=== PATIENT | male | born 1940 | race Caucasian/White ===

== ENCOUNTER 2016-08-02 08:45 | Inpatient (IN) | payer MEDICARE, BC ==
[2016-08-04] MEDS ORDERED: Lidocaine 1%/Sod Bicarbonate in NS 8.4% 1 ML Syringe IV PRN (00:01)
[2016-08-04] MEDS ORDERED: Sodium Chloride 0.9% 10 ML Syringe FLUSH PRN (00:01)
[2016-08-04] MEDS ORDERED: Lidocaine 1% 2 ML ONE ×2 (06:54)
[2016-08-04] MEDS ORDERED: Propofol 200 MG/20 ML SDV ONE ×3 (06:54→09:50)
[2016-08-04] MEDS ORDERED: ceFAZolin 1 GM Vial ONE ×3 (06:54→10:58)
[2016-08-04] MEDS ORDERED: Morphine PF 10 MG/10 ML SDV ONE (06:55)
[2016-08-04] MEDS ORDERED: Iodine/Sodium Iodide 2% Tincture 30 ML Bottle ONE (06:58)
[2016-08-04] MEDS ORDERED: Midazolam 1 MG/ML 2 ML SDV ONE (07:00)
--- NOTE | 2016-08-04 07:06 | PCM.PREANE ---
Preanesthetic Assessment - Anesthesia/Transfusion/Family Hx Anesthesia History: Prior Anesthesia Without Reaction Other Type of Anesthesia Reaction Comment: none Family History of Anesthesia Reaction: No Family History of Anesthesia Reaction, Other: none Transfusion History: No Prior Transfusion(s) Other Type of Transfusion Reaction: none Intubation History: Unknown (BS ) - Review of Systems General: No Symptoms Pulmonary: Shortness of Breath (SOB with exertion) Cardiovascular: No Symptoms Gastrointestinal: No symptoms Neurological: No Symptoms Other: Reports: Diabetes - Physical Assessment NPO Status Date: 08/03/16 NPO Status Time: 22:00 Pulse: 80 O2 Sat by Pulse Oximetry: 91 Respiratory Rate: 16 Blood Pressure: 168/83 Temperature: 97.0 C ASA Class: 2 Mental Status: Alert & Oriented x3 Airway Class: Mallampati = 1 Dentition: Reports: Normal Dentition Thyro-Mental Finger Breadths: 3 Mouth Opening Finger Breadths: 3 ROM/Head Extension: Full Lungs: Clear to auscultation, Normal respiratory effort Cardiovascular: Regular Rate, Regular Rhythm - Allergies Allergies/Adverse Reactions: Allergies Allergy/AdvReac Type Severity Reaction Status Date / Time latex Allergy Rash Verified 08/03/16 15:20 - Anesthesia Plan Pre-Op Medication Ordered: None - Acknowledgements Anesthesia Type Planned: Spinal Pt an Appropriate Candidate for the Planned Anesthesia: Yes Alternatives and Risks of Anesthesia Discussed w Pt/Guardian: Yes Pt/Guardian Understands and Agrees with Anesthesia Plan: Yes PreAnesthesia Questionnaire HEENT History: Reports: Impaired vision, Other (see below) Other HEENT History: glasses Cardiovascular History: Reports: High cholesterol, Hypertension Respiratory History: Reports: COPD, SOB (SOB with exertion) Gastrointestinal History: Reports: None Genitourinary History: Reports: Renal calculus, Other (see below) Other Genitourinary History: erectile dysfunction 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 Musculoskeletal History: Reports: None, Arthritis Neurological History: Reports: None Psychiatric History: Reports: None Endocrine/Metabolic History: Reports: Diabetes, type II (pt states he takes no medication for DM, lost 40 pounds last year), Vitamin D deficiency Hematologic History: Reports: None Immunologic History: Reports: None Oncologic (Cancer) History: Reports: None Dermatologic History: Reports: None - Infectious Disease History Infectious Disease History: Reports: None - Past Surgical History Head Surgeries/Procedures: Reports: None HEENT Surgical History: Reports: Cataract surgery, Naso-sinus surgery, Tonsillectomy Cardiovascular Surgical History: Reports: None Respiratory Surgical History: Reports: None GI Surgical History: Reports: Hernia, inguinal, Other (see below) Other GI Surgeries/Procedures: inguinal and abdominal hernia repair Female Surgical History: Reports: None Male Surgical History: Reports: None Endocrine Surgical History: Reports: None Neurological Surgical History: Reports: None Musculoskeletal Surgical History: Reports: None Oncologic Surgical History: Reports: None Dermatological Surgical History: Reports: None (no anesthetic complications) - Past Imaging History Past Imaging History: Reports: None - SUBSTANCE USE Smoking Status *Q: Former Smoker Recreational Drug Use History: No - HOME MEDS Home Medications: Home Meds Aspirin [Halfprin] 81 mg PO DAILY 08/03/16 [History] B2/Vit A,C & E/Lut/Zeaxanth/Mn [Icaps] 1 tab PO BID 08/03/16 [History] Cholecalciferol (Vitamin D3) [Vitamin D3] 5,000 unit PO DAILY 08/03/16 [History] Hydrochlorothiazide 25 mg PO DAILY 08/03/16 [History] Meloxicam [Meloxicam] 15 mg PO DAILY 08/03/16 [History] Ramipril [Ramipril] 10 mg PO BID 08/03/16 [History] atorvaSTATin Calcium [Atorvastatin Calcium] 20 mg PO DAILY 08/03/16 [History] - CURRENT (IN HOUSE) MEDS Current Meds: Current Medications Lactated Ringer's (Ringers, Lactated) 1,000 mls @ 125 mls/hr IV ASDIRECTED NICKY Lidocaine/Sodium Bicarbonate (Buffered Lidocaine 1% In Ns 8.4%) 0.25 ml IV ONETIME PRN PRN Reason: Prior to IV Start Sodium Chloride (Saline Flush) 10 ml FLUSH ASDIRECTED PRN PRN Reason: Keep Vein Open Discontinued Medications Cefazolin Sodium (Ancef) Confirm Administered Dose 1 gm .ROUTE .STK-MED ONE Stop: 08/04/16 06:55 Cefazolin Sodium (Ancef) Confirm Administered Dose 1 gm .ROUTE .STK-MED ONE Stop: 08/04/16 06:55 Lidocaine HCl (Xylocaine-Mpf 1%) Confirm Administered Dose 2 mls @ as directed .ROUTE .STK-MED ONE Stop: 08/04/16 06:55 Lidocaine HCl (Xylocaine-Mpf 1%) Confirm Administered Dose 2 mls @ as directed .ROUTE .STK-MED ONE Stop: 08/04/16 06:55 Midazolam HCl (Versed 1 Mg/Ml) Confirm Administered Dose 2 mg .ROUTE .STK-MED ONE Stop: 08/04/16 07:01 Morphine Sulfate (Duramorph Pf) Confirm Administered Dose 10 mg .ROUTE .STK-MED ONE Stop: 08/04/16 06:56 Propofol (Diprivan 20 Ml) Confirm Administered Dose 200 mg .ROUTE .STK-MED ONE Stop: 08/04/16 06:55
[2016-08-04] MEDS: Lactated Ringers 1,000 ML IV SCH ×2 (07:35→12:42)
[2016-08-04] MEDS ORDERED: Acetaminophen/oxyCODONE 325-5 MG Tab PO PRN (08:07)
[2016-08-04] MEDS ORDERED: Ondansetron 4 MG/2 ML SDV IVPUSH PRN ×2 (08:07→11:46)
[2016-08-04] MEDS ORDERED: HYDROmorphone 0.5 MG/0.5 ML Syringe IVPUSH PRN ×2 (08:07→12:50)
[2016-08-04] MEDS ORDERED: Morphine 15 MG Tab.ER PO SCH (08:15)
[2016-08-04] MEDS ORDERED: Bupivacaine 0.5%/EPINEPHrine 1:200,000 50 ML MDV ONE (08:38)
[2016-08-04] MEDS ORDERED: Lactated Ringers 1,000 ML ONE (09:40)
[2016-08-04] MEDS ORDERED: ePHEDrine/Normal Saline 25 MG/5 ML Syringe ONE ×2 (09:40→10:11)
[2016-08-04] MEDS ORDERED: Ondansetron 4 MG/2 ML SDV ONE (11:24)
--- NOTE | 2016-08-04 11:44 | PCM.POSTAN ---
POST ANESTHESIA ASSESSMENT - MENTAL STATUS Mental Status: alert, oriented - VITAL SIGNS Pulse Rate: 66 SaO2: 91 Resp Rate: 20 Blood Pressure: 97/51 Temperature: 97.7 C - RESPIRATORY Respiratory Status: respiratory rate WNL, airway patent, O2 saturation stable - CARDIOVASCULAR CV Status: pulse rate WNL, blood pressure stable - GASTROINTESTINAL GI Status: no symptoms - PAIN Pain Score: 0 - POST OP HYDRATION Hydration Status: adequate & stable
[2016-08-04] MEDS ORDERED: ePHEDrine 50 MG/ML SDV IVPUSH PRN (11:46)
[2016-08-04] MEDS ORDERED: diphenhydrAMINE 50 MG/ML SDV IVPUSH PRN (11:46)
--- NOTE | 2016-08-04 12:48 | CR ---
Right hip: AP and lateral views of the right hip were obtained. Comparison: Previous right hip study of 06/13/16. Right hip prosthesis is seen. Components are aligned. Surgical drain and skin tom are present with soft tissue air. Underlying bony structures are intact. Impression: 1. Satisfactory radiographic appearance of recently placed right hip prosthesis. Diagnostic code #2
[2016-08-04] MEDS ORDERED: fentaNYL 100 MCG/2 ML SDV IVPUSH PRN (12:50)
--- NOTE | 2016-08-04 13:15 | PCM48HPAN ---
Post Anesthesia Note - EVALUATION WITHIN 48HRS OF ANESTHETIC Vital Signs in Normal Range: Yes Patient Participated in Evaluation: Yes Respiratory Function Stable: Yes Airway Patent: Yes Cardiovascular Function Stable: Yes Hydration Status Stable: Yes Pain Control Satisfactory: Yes Nausea and Vomiting Control Satisfactory: Yes Mental Status Recovered: Yes
[2016-08-04] MEDS: ceFAZolin 1 GM in Premix Bag 1 BAG IV SCH ×2 (14:26→18:19)
[2016-08-04] MEDS ORDERED: 50% Dextrose in Water 50 ML Syringe IVPUSH PRN (15:47)
--- NOTE | 2016-08-04 15:57 | PCM.CONS ---
<AnnemarieJana M - Last Filed: 08/04/16 15:50> H&P History of Present Illness - General Date of Service: 08/04/16 Admit Problem/Dx: Admission Diagnosis/Problem Admission Diagnosis/Problem Hip pain Source of Information: Patient, Old records History Limitations: Reports: No Limitations - History of Present Illness Initial Comments - Free Text/Narative: Kush Payne" is a 75yo male postop from [facility] with Dr. Shaikh today. PMH is significant for HTN, HLD, COPD, Type 2 DM not on any medications currently, ED, hx of nephrolithiasis. Hospitalist service has been consulted for postoperative medical management. He had spinal anesthesia, 350cc EBL intraoperatively, 400cc EBL in PACU in drain. He is doing well thus far, pain is controlled and 6-7/10 on pain scale currently. Has just ambulated with PT at time of my exam. States he is "a little dizzy" but this resolves when he lays down. Denies SOB, CP, BARNARD, palpitations. No abdominal or back pain. Davis cath is in place. He is Full Code status. Right Hip Pain Score (Numeric/FACES): 7 - Related Data Allergies/Adverse Reactions: Allergies Allergy/AdvReac Type Severity Reaction Status Date / Time latex Allergy Rash Verified 08/03/16 15:20 Home Medications: Home Meds Aspirin [Halfprin] 81 mg PO DAILY 08/03/16 [History] B2/Vit A,C & E/Lut/Zeaxanth/Mn [Icaps] 1 tab PO BID 08/03/16 [History] Cholecalciferol (Vitamin D3) [Vitamin D3] 5,000 unit PO DAILY 08/03/16 [History] Hydrochlorothiazide 25 mg PO DAILY 08/03/16 [History] Meloxicam [Meloxicam] 15 mg PO DAILY 08/03/16 [History] Ramipril [Ramipril] 10 mg PO BID 08/03/16 [History] atorvaSTATin Calcium [Atorvastatin Calcium] 20 mg PO DAILY 08/03/16 [History] Past Medical History HEENT History: Reports: Impaired vision, Other (see below) Other HEENT History: Patient wears reading glasses Cardiovascular History: Reports: High cholesterol, Hypertension Respiratory History: Reports: COPD, SOB Gastrointestinal History: Reports: None Genitourinary History: Reports: Renal calculus, Other (see below) Other Genitourinary History: erectile dysfunction 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 Musculoskeletal History: Reports: Arthritis Neurological History: Reports: None Psychiatric History: Reports: None Endocrine/Metabolic History: Reports: Diabetes, type II, Vitamin D deficiency Hematologic History: Reports: None Immunologic History: Reports: None Oncologic (Cancer) History: Reports: None Dermatologic History: Reports: None - Infectious Disease History Infectious Disease History: Reports: None - Past Surgical History Head Surgeries/Procedures: Reports: None HEENT Surgical History: Reports: Cataract surgery, Naso-sinus surgery, Tonsillectomy Cardiovascular Surgical History: Reports: None Respiratory Surgical History: Reports: None GI Surgical History: Reports: Hernia, inguinal, Other (see below) Other GI Surgeries/Procedures: inguinal and abdominal hernia repair Male Surgical History: Reports: None Endocrine Surgical History: Reports: None Neurological Surgical History: Reports: None Musculoskeletal Surgical History: Reports: None Oncologic Surgical History: Reports: None Dermatological Surgical History: Reports: None - Past Imaging History Past Imaging History: Reports: None Social & Family History - Family History Family Medical History: Noncontributory - Tobacco Use Smoking Status *Q: Former Smoker Years of Tobacco use: 40 Used Tobacco, but Quit: Yes Month Tobacco Last Used: 2003 - Caffeine Use Caffeine Use: Reports: Coffee - Recreational Drug Use Recreational Drug Use: No Drug Use in Last 12 Months: No H&P Review of Systems - Review of Systems: Review Of Systems: See Below General: Reports: No Symptoms HEENT: Reports: No Symptoms Pulmonary: Reports: No Symptoms, Other (on supplemental O2 now, not on O2 at home, denies MAXIMILIANO but does state he snores loudly). Denies: Shortness of Breath , Wheezing, Pleuritic Chest Pain, Cough, Hemoptysis Cardiovascular: Reports: No Symptoms, Lightheadedness (resolved after lying flat ). Denies: Chest Pain, Palpitations, Dyspnea on Exertion, Orthopnea Gastrointestinal: Reports: No Symptoms Genitourinary: Reports: Other (davis cath present) Musculoskeletal: Reports: Leg Pain (rt hip pain) Psychiatric: Reports: No Symptoms Neurological: Reports: No Symptoms Exam - Exam Exam: See Below - Vital Signs Vital Signs: Last Vital Signs Temp 97.9 F 08/04/16 13:17 Pulse 64 08/04/16 14:07 Resp 18 08/04/16 15:00 BP 146/56 H 08/04/16 15:32 Pulse Ox 94 L 08/04/16 14:07 Weight: 89.267 kg - Exam Quality Assessment: Supplemental Oxygen, DVT Prophylaxis (SCD's bilat) General: Alert, Oriented, Cooperative HEENT: Conjunctiva Clear, EOMI, Hearing Intact, Mucosa Moist & [place], Pupils Equal, Pupils Reactive, PERRLA Neck: Supple, Trachea Midline Lungs: Clear to Auscultation, Normal Respiratory Effort, Wheezing (expiratory wheeze, scattered and clears with cough) Cardiovascular: Regular Rate, Regular Rhythm Abdomen: Normal Bowel Sounds, Soft. No: Distention, Guarding, Rigidity, Rebound , Tenderness (Male) Exam: Deferred Rectal (Males) Exam: Deferred Back Exam: Normal Inspection Extremities: Normal Inspection, Other (SCD's) Peripheral Pulses: 1+: Dorsalis Pedis (L), Dorsalis Pedis (R) Skin: Wound (dressing CDI; drain in place draining excess amt of blood) Neuro Extensive - Mental Status: Alert, Oriented x3, Normal Mood/Affect, Normal Cognition, Memory Intact Psychiatric: Alert, Normal Affect, Normal Mood - Patient Data Lab Results last 24 hrs: Laboratory Results - last 24 hr 08/04/16 08/04/16 Range/Units 07:39 08:00 POC Glucose 103 (83-110) mg/dL Blood Type O NEGATIVE Gel Antibody Screen Negative Consult PN Assessment/Plan POD#: 0 Procedures: Procedures BLOOD TYPING SEROLOGIC ABO (07/13/16) BLOOD TYPING SEROLOGIC RH(D) (07/13/16) CHEST X-RAY 2VW FRONTAL&LATL (07/13/16) MR-STAPH DNA AMP PROBE (07/13/16) OFFICE/OUTPATIENT VISIT EST (07/13/16) RBC ANTIBODY SCREEN (07/13/16) ROUTINE VENIPUNCTURE (07/13/16) X-RAY EXAM HIP UNI 2-3 VIEWS (06/13/16) (1) S/P total hip arthroplasty SNOMED Code(s): 134785606768, 901817080890 Code(s): Z96.649 - PRESENCE OF UNSPECIFIED ARTIFICIAL HIP JOINT Priority: High Current Visit: Yes Qualifiers: Laterality: right Qualified Code(s): Z96.641 - Presence of right artificial hip joint (2) Osteoarthritis SNOMED Code(s): 661801958 Code(s): M19.90 - UNSPECIFIED OSTEOARTHRITIS, UNSPECIFIED SITE Priority: High Current Visit: Yes Qualifiers: Osteoarthritis location: hip Osteoarthritis type: primary Laterality: right Qualified Code(s): M16.11 - Unilateral primary osteoarthritis, right hip (3) HTN (hypertension) SNOMED Code(s): 03245315 Code(s): I10 - ESSENTIAL (PRIMARY) HYPERTENSION Priority: Medium Current Visit: No Qualifiers: Hypertension type: essential hypertension Qualified Code(s): I10 - Essential (primary) hypertension (4) HLD (hyperlipidemia) SNOMED Code(s): 28098686 Code(s): E78.5 - HYPERLIPIDEMIA, UNSPECIFIED Priority: Medium Current Visit: No Qualifiers: Hyperlipidemia type: unspecified Qualified Code(s): E78.5 - Hyperlipidemia , unspecified (5) COPD (chronic obstructive pulmonary disease) SNOMED Code(s): 30871089 Code(s): J44.9 - CHRONIC OBSTRUCTIVE PULMONARY DISEASE, UNSPECIFIED Priority: Medium Current Visit: No Qualifiers: Emphysema type: unspecified (6) Type 2 diabetes mellitus SNOMED Code(s): 04816459 Code(s): E11.9 - TYPE 2 DIABETES MELLITUS WITHOUT COMPLICATIONS Priority: High Current Visit: Yes Qualifiers: Diabetes mellitus complication status: without complication 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 Qualified Code(s): E11.9 - Type 2 diabetes mellitus without complications (7) History of nephrolithiasis SNOMED Code(s): 403954564 Code(s): Z87.442 - PERSONAL HISTORY OF URINARY CALCULI Priority: Medium Current Visit: No Problem List Initiated/Reviewed/Updated: Yes My Orders last 24 hours: My Active Orders 08/04/16 15:21 ABG [BLOOD GAS ARTERIAL] [BG] Routine 08/04/16 15:43 IS (RT) [RT Incentive Spirometry] [RC] Q2HWA Albuterol [Proventil Neb Soln] 2.5 mg NEB Q6HRRT PRN 08/04/16 15:44 RT Aerosol Therapy [RC] ASDIRECTED 08/04/16 15:47 Accu Check [Blood Glucose Check, Bedside] [RC] WITHMEALSANDBED Dextrose 50% in Water 50 ml IVPUSH ASDIRECTED PRN 08/04/16 17:00 Insulin Aspart [NovoLOG] See Protocol SUBCUT QIDACANDBED 08/04/16 21:00 B2/Vit A,C & E/Lut/Zeaxanth/Mn [Icaps] 1 tab PO BID Famotidine [Pepcid] 20 mg PO BID Ramipril 10 mg PO BID 08/04/16 Dinner Heart Healthy Diet [DIET] 08/05/16 05:11 BASIC METABOLIC PANEL,BMP [CHEM] AM CBC WITH AUTO DIFF [HEME] AM MAGNESIUM [CHEM] AM 08/05/16 09:00 Aspirin [Halfprin] 81 mg PO DAILY Cholecalciferol (Vitamin D3) [Vitamin D3] 5,000 unit PO DAILY Hydrochlorothiazide 25 mg PO DAILY atorvaSTATin Calcium 20 mg PO DAILY 08/06/16 05:11 BASIC METABOLIC PANEL,BMP [CHEM] AM CBC WITH AUTO DIFF [HEME] AM MAGNESIUM [CHEM] AM 08/07/16 05:11 BASIC METABOLIC PANEL,BMP [CHEM] AM CBC WITH AUTO DIFF [HEME] AM MAGNESIUM [CHEM] AM 08/08/16 05:11 BASIC METABOLIC PANEL,BMP [CHEM] AM CBC WITH AUTO DIFF [HEME] AM MAGNESIUM [CHEM] AM Plan: I/P S/P [facility] with Dr. Shaikh: POD #0 -Pain managment and DVT prophylax per Ortho -PT/OT -IS/C&DB/RT/nebs PRN -patient is home alone with no assistance; plans SNF/Rehab stay Postoperative blood loss -EBL intraoperative 350cc; PACU 400cc; since arrival to the floor 300cc -Plan to transfuse 1 unit PRBC now, recheck hgb in am and follow -Notified Dr. Shaikh of plan- he is in agreement to transfusion today with recheck of hgb in am Other chronic conditions: HTN- cont home meds of HCTZ, lisinopril HLD- cont statin COPD- stable, on no home meds, supplemental oxygen to keep sats >90%, albuterol nebs PRN and RT tx DM- not on any home meds; A1C will be ordered, Accuchecks AC/HS with SSI coverage ED Hx nephrolithiasis Other: CM/SW for DC planning- plans SNF stay for rehab PT/OT GI prophylax Patient is Full Code status <Madison Elliott - Last Filed: 08/04/16 17:47> H&P History of Present Illness - General Admit Problem/Dx: Admission Diagnosis/Problem Admission Diagnosis/Problem Hip pain Exam - Vital Signs Vital Signs: Last Vital Signs Temp 37.3 C 08/04/16 16:00 Pulse 73 08/04/16 16:00 Resp 20 08/04/16 17:00 BP 142/50 H 08/04/16 17:00 Pulse Ox 97 08/04/16 17:23 - Patient Data Lab Results last 24 hrs: Laboratory Results - last 24 hr 08/04/16 08/04/16 08/04/16 Range/Units 07:39 08:00 15:21 Hgb (13.7-17.5) gm/L Puncture Site Rt radial ABG pH 7.33 L (7.35-7.45) ABG pCO2 59.9 H (35.0-45.0) mmHg ABG pO2 70.0 L (80.0-100.0) mmHg ABG HCO3 30.6 H (22.0-26.0) meq/L ABG O2 Saturation 94.2 L (96.0-97.0) % ABG Base Excess 3.8 H (-2-2.0) Darren Test Positive A-a Gradient 34 mmHg O2 Delivery Device Nasal cannula Oxygen Flow Rate 2.0 FiO2 28.00 (21.00-100.00) % POC Glucose 103 (83-110) mg/dL Blood Type O NEGATIVE Gel Antibody Screen Negative Crossmatch See Detail 08/04/16 Range/Units 16:31 Hgb 11.8 L (13.7-17.5) gm/L Puncture Site ABG pH (7.35-7.45) ABG pCO2 (35.0-45.0) mmHg ABG pO2 (80.0-100.0) mmHg ABG HCO3 (22.0-26.0) meq/L ABG O2 Saturation (96.0-97.0) % ABG Base Excess (-2-2.0) Darren Test A-a Gradient mmHg O2 Delivery Device Oxygen Flow Rate FiO2 (21.00-100.00) % POC Glucose (83-110) mg/dL Blood Type Gel Antibody Screen Crossmatch Result Diagrams: 08/04/16 16:31 Consult PN Assessment/Plan Procedures: Procedures BLOOD TYPING SEROLOGIC ABO (07/13/16) BLOOD TYPING SEROLOGIC RH(D) (07/13/16) CHEST X-RAY 2VW FRONTAL&LATL (07/13/16) MR-STAPH DNA AMP PROBE (07/13/16) OFFICE/OUTPATIENT VISIT EST (07/13/16) RBC ANTIBODY SCREEN (07/13/16) ROUTINE VENIPUNCTURE (07/13/16) X-RAY EXAM HIP UNI 2-3 VIEWS (06/13/16) Plan: See above, will follow.
[2016-08-04] MEDS: Albuterol 0.083% 2.5 MG/3 ML Neb Soln NEB PRN (17:21)
[2016-08-04] MEDS: Insulin Aspart 100 Units/ML 3 ML Pen SUBCUT SCH ×2 (18:25→21:38)
[2016-08-04] MEDS: Ketorolac 15 MG/ML SDV IVPUSH PRN (21:37)
[2016-08-04] MEDS: Famotidine 20 MG Tab PO SCH (21:37)
[2016-08-04] MEDS: Cyclobenzaprine 10 MG Tab PO PRN (21:37)
[2016-08-04] MEDS: Multivitamins with Minerals/Folic Acid/Lutein/Zeaxanth Tab PO SCH (21:38)
[2016-08-04] MEDS: Simvastatin 20 MG Tab PO SCH (21:38)
[2016-08-05] MEDS: ceFAZolin 1 GM in Premix Bag 1 BAG IV SCH ×2 (01:52→06:26)
[2016-08-05] MEDS: Ketorolac 15 MG/ML SDV IVPUSH PRN (06:26)
[2016-08-05] MEDS: Cyclobenzaprine 10 MG Tab PO PRN (06:27)
[2016-08-05] MEDS: Insulin Aspart 100 Units/ML 3 ML Pen SUBCUT SCH ×4 (06:51→21:30)
--- NOTE | 2016-08-05 07:30 | PCM.CONSN ---
<Madison Elliott Karlos - Last Filed: 08/05/16 10:42> - Patient Data Vitals - most recent: Last Vital Signs Temp 37.3 C 08/05/16 07:23 Pulse 66 08/05/16 07:23 Resp 18 08/05/16 07:20 BP 115/57 L 08/05/16 09:00 Pulse Ox 95 08/05/16 10:10 I&O - last 24 hours: Intake & Output 08/04/16 08/05/16 08/05/16 22:59 06:59 14:59 Intake Total 1640 650 Output Total 450 850 Balance 1190 -200 Lab Results last 24 hrs: Laboratory Results - last 24 hr 08/04/16 08/04/16 08/04/16 Range/Units 08:00 15:21 16:31 WBC (4.23-9.07) K/mm3 RBC (4.63-6.08) M/mm3 Hgb 11.8 L (13.7-17.5) gm/L Hct (40.1-51.0) % MCV (79.0-92.2) fl MCH (25.7-32.2) pg MCHC (32.2-35.5) g/dl RDW Std Deviation (35.1-43.9) fL Plt Count (163-337) K/mm3 MPV (9.4-12.3) fl Neut % (Auto) (34.0-67.9) % Lymph % (Auto) (21.8-53.1) % Harper % (Auto) (5.3-12.2) % Eos % (Auto) (0.8-7.0) Baso % (Auto) (0.1-1.2) % Neut # (Auto) (1.78-5.38) K/mm3 Lymph # (Auto) (1.32-3.57) K/mm3 Harper # (Auto) (0.30-0.82) K/mm3 Eos # (Auto) (0.04-0.54) K/mm3 Baso # (Auto) (0.01-0.08) K/mm3 Puncture Site Rt radial ABG pH 7.33 L (7.35-7.45) ABG pCO2 59.9 H (35.0-45.0) mmHg ABG pO2 70.0 L (80.0-100.0) mmHg ABG HCO3 30.6 H (22.0-26.0) meq/L ABG O2 Saturation 94.2 L (96.0-97.0) % ABG Base Excess 3.8 H (-2-2.0) Darren Test Positive A-a Gradient 34 mmHg O2 Delivery Device Nasal cannula Oxygen Flow Rate 2.0 FiO2 28.00 (21.00-100.00) % Sodium (136-145) mEq/L Potassium (3.5-5.1) mEq/L Chloride (98-107) mEq/L Carbon Dioxide (21-32) mEq/L Anion Gap (5-15) BUN (7-18) mg/dL Creatinine (0.7-1.3) mg/dL Est Cr Clr Drug Dosing mL/min Estimated GFR (MDRD) (>60) mL/min BUN/Creatinine Ratio (14-18) Glucose (83-115) mg/dL POC Glucose (83-110) mg/dL Hemoglobin A1c (4.50-6.20) % Calcium (8.5-10.1) mg/dL Magnesium (1.8-2.4) mg/dl Hepatitis C Antibody (NEGATIVE) HIV-1 Ab Rapid Screen (NEGATIVE) Blood Type O NEGATIVE Gel Antibody Screen Negative Crossmatch See Detail 08/04/16 08/04/16 08/04/16 Range/Units 17:54 21:13 21:22 WBC (4.23-9.07) K/mm3 RBC (4.63-6.08) M/mm3 Hgb (13.7-17.5) gm/L Hct (40.1-51.0) % MCV (79.0-92.2) fl MCH (25.7-32.2) pg MCHC (32.2-35.5) g/dl RDW Std Deviation (35.1-43.9) fL Plt Count (163-337) K/mm3 MPV (9.4-12.3) fl Neut % (Auto) (34.0-67.9) % Lymph % (Auto) (21.8-53.1) % Harper % (Auto) (5.3-12.2) % Eos % (Auto) (0.8-7.0) Baso % (Auto) (0.1-1.2) % Neut # (Auto) (1.78-5.38) K/mm3 Lymph # (Auto) (1.32-3.57) K/mm3 Harper # (Auto) (0.30-0.82) K/mm3 Eos # (Auto) (0.04-0.54) K/mm3 Baso # (Auto) (0.01-0.08) K/mm3 Puncture Site ABG pH (7.35-7.45) ABG pCO2 (35.0-45.0) mmHg ABG pO2 (80.0-100.0) mmHg ABG HCO3 (22.0-26.0) meq/L ABG O2 Saturation (96.0-97.0) % ABG Base Excess (-2-2.0) Darren Test A-a Gradient mmHg O2 Delivery Device Oxygen Flow Rate FiO2 (21.00-100.00) % Sodium (136-145) mEq/L Potassium (3.5-5.1) mEq/L Chloride (98-107) mEq/L Carbon Dioxide (21-32) mEq/L Anion Gap (5-15) BUN (7-18) mg/dL Creatinine (0.7-1.3) mg/dL Est Cr Clr Drug Dosing mL/min Estimated GFR (MDRD) (>60) mL/min BUN/Creatinine Ratio (14-18) Glucose (83-115) mg/dL POC Glucose 111 H 99 (83-110) mg/dL Hemoglobin A1c (4.50-6.20) % Calcium (8.5-10.1) mg/dL Magnesium (1.8-2.4) mg/dl Hepatitis C Antibody Negative (NEGATIVE) HIV-1 Ab Rapid Screen Negative (NEGATIVE) Blood Type Gel Antibody Screen Crossmatch 08/05/16 08/05/16 08/05/16 Range/Units 04:14 04:14 04:14 WBC 10.53 H (4.23-9.07) K/mm3 RBC 3.66 L (4.63-6.08) M/mm3 Hgb 10.9 L (13.7-17.5) gm/L Hct 33.8 L (40.1-51.0) % MCV 92.3 H (79.0-92.2) fl MCH 29.8 (25.7-32.2) pg MCHC 32.2 (32.2-35.5) g/dl RDW Std Deviation 44.3 H (35.1-43.9) fL Plt Count 182 (163-337) K/mm3 MPV 10.2 (9.4-12.3) fl Neut % (Auto) 71.9 H (34.0-67.9) % Lymph % (Auto) 12.2 L (21.8-53.1) % Harper % (Auto) 12.8 H (5.3-12.2) % Eos % (Auto) 2.5 (0.8-7.0) Baso % (Auto) 0.4 (0.1-1.2) % Neut # (Auto) 7.58 H (1.78-5.38) K/mm3 Lymph # (Auto) 1.28 L (1.32-3.57) K/mm3 Harper # (Auto) 1.35 H (0.30-0.82) K/mm3 Eos # (Auto) 0.26 (0.04-0.54) K/mm3 Baso # (Auto) 0.04 (0.01-0.08) K/mm3 Puncture Site ABG pH (7.35-7.45) ABG pCO2 (35.0-45.0) mmHg ABG pO2 (80.0-100.0) mmHg ABG HCO3 (22.0-26.0) meq/L ABG O2 Saturation (96.0-97.0) % ABG Base Excess (-2-2.0) Darren Test A-a Gradient mmHg O2 Delivery Device Oxygen Flow Rate FiO2 (21.00-100.00) % Sodium 134 L (136-145) mEq/L Potassium 4.4 (3.5-5.1) mEq/L Chloride 101 (98-107) mEq/L Carbon Dioxide 33 H (21-32) mEq/L Anion Gap 4.4 L (5-15) BUN 20 H (7-18) mg/dL Creatinine 0.7 (0.7-1.3) mg/dL Est Cr Clr Drug Dosing 87.87 mL/min Estimated GFR (MDRD) > 60 (>60) mL/min BUN/Creatinine Ratio 28.6 H (14-18) Glucose 112 (83-115) mg/dL POC Glucose (83-110) mg/dL Hemoglobin A1c 5.80 (4.50-6.20) % Calcium 8.3 L (8.5-10.1) mg/dL Magnesium 1.7 L (1.8-2.4) mg/dl Hepatitis C Antibody (NEGATIVE) HIV-1 Ab Rapid Screen (NEGATIVE) Blood Type Gel Antibody Screen Crossmatch 08/05/16 Range/Units 06:48 WBC (4.23-9.07) K/mm3 RBC (4.63-6.08) M/mm3 Hgb (13.7-17.5) gm/L Hct (40.1-51.0) % MCV (79.0-92.2) fl MCH (25.7-32.2) pg MCHC (32.2-35.5) g/dl RDW Std Deviation (35.1-43.9) fL Plt Count (163-337) K/mm3 MPV (9.4-12.3) fl Neut % (Auto) (34.0-67.9) % Lymph % (Auto) (21.8-53.1) % Harper % (Auto) (5.3-12.2) % Eos % (Auto) (0.8-7.0) Baso % (Auto) (0.1-1.2) % Neut # (Auto) (1.78-5.38) K/mm3 Lymph # (Auto) (1.32-3.57) K/mm3 Harper # (Auto) (0.30-0.82) K/mm3 Eos # (Auto) (0.04-0.54) K/mm3 Baso # (Auto) (0.01-0.08) K/mm3 Puncture Site ABG pH (7.35-7.45) ABG pCO2 (35.0-45.0) mmHg ABG pO2 (80.0-100.0) mmHg ABG HCO3 (22.0-26.0) meq/L ABG O2 Saturation (96.0-97.0) % ABG Base Excess (-2-2.0) Darren Test A-a Gradient mmHg O2 Delivery Device Oxygen Flow Rate FiO2 (21.00-100.00) % Sodium (136-145) mEq/L Potassium (3.5-5.1) mEq/L Chloride (98-107) mEq/L Carbon Dioxide (21-32) mEq/L Anion Gap (5-15) BUN (7-18) mg/dL Creatinine (0.7-1.3) mg/dL Est Cr Clr Drug Dosing mL/min Estimated GFR (MDRD) (>60) mL/min BUN/Creatinine Ratio (14-18) Glucose (83-115) mg/dL POC Glucose 112 H (83-110) mg/dL Hemoglobin A1c (4.50-6.20) % Calcium (8.5-10.1) mg/dL Magnesium (1.8-2.4) mg/dl Hepatitis C Antibody (NEGATIVE) HIV-1 Ab Rapid Screen (NEGATIVE) Blood Type Gel Antibody Screen Crossmatch Med Orders - Current: Current Medications Albuterol (Proventil Neb Soln) 2.5 mg NEB Q6H PRN PRN Reason: SOB/wheezing Last Admin: 08/04/16 17:21 Dose: 2.5 mg Aspirin (Halfprin) 81 mg PO DAILY [facility] Last Admin: 08/05/16 08:59 Dose: 81 mg Cholecalciferol (Vitamin D3) 5,000 units PO DAILY [facility] Last Admin: 08/05/16 09:00 Dose: 5,000 units Cyclobenzaprine HCl (Flexeril) 10 - 20 mg PO Q8H PRN PRN Reason: Muscle Spasm Last Admin: 08/05/16 06:27 Dose: 10 mg Dextrose/Water (Dextrose 50% In Water) 50 ml IVPUSH ASDIRECTED PRN PRN Reason: Hypoglycemia Enoxaparin Sodium (Lovenox) 40 mg SUBCUT DAILY [facility] Last Admin: 08/05/16 09:01 Dose: 40 mg Famotidine (Pepcid) 20 mg PO BID [facility] Last Admin: 08/05/16 08:59 Dose: 20 mg Hydrochlorothiazide (Hydrochlorothiazide) 25 mg PO DAILY [facility] Last Admin: 08/05/16 08:59 Dose: 25 mg Insulin Aspart (Novolog) 0 unit SUBCUT QIDACANDBED [facility] PRN Reason: Protocol Last Admin: 08/05/16 06:51 Dose: Not Given Ketorolac Tromethamine (Toradol) 15 mg IVPUSH Q6H PRN PRN Reason: Pain (severe 7-10) Last Admin: 08/05/16 06:26 Dose: 15 mg Lisinopril (Prinivil) 40 mg PO DAILY [facility] Last Admin: 08/05/16 09:00 Dose: 40 mg Oxycodone/Acetaminophen (Percocet 325-5 Mg) 1 - 2 tab PO Q4H PRN PRN Reason: Pain (severe 7-10) Last Admin: 08/05/16 10:09 Dose: 2 tab Simvastatin (Zocor) 20 mg PO BEDTIME [facility] Last Admin: 08/04/16 21:38 Dose: 20 mg Vit A/Vit C/Vit E/Selen/Cu/Zn/Lutei (Icaps Mv) 1 tab PO BID [facility] Last Admin: 08/05/16 09:00 Dose: 1 tab Discontinued Medications Bupivacaine HCl/Epinephrine Bitart (Marcaine 0.5%/Epinephrine 1:200,000) Confirm Administered Dose 50 ml .ROUTE .STK-MED ONE Stop: 08/04/16 08:39 Last Admin: 08/04/16 09:28 Dose: 20 ml Cefazolin Sodium (Ancef) Confirm Administered Dose 1 gm .ROUTE .STK-MED ONE Stop: 08/04/16 06:55 Cefazolin Sodium (Ancef) Confirm Administered Dose 1 gm .ROUTE .STK-MED ONE Stop: 08/04/16 06:55 Cefazolin Sodium (Ancef) Confirm Administered Dose 1 gm .ROUTE .STK-MED ONE Stop: 08/04/16 10:59 Diphenhydramine HCl (Benadryl) 25 mg IVPUSH Q6H PRN PRN Reason: pruritis Stop: 08/04/16 20:00 Ephedrine Sulfate (Ephedrine In Ns) Confirm Administered Dose 25 mg .ROUTE .STK- MED ONE Stop: 08/04/16 09:41 Ephedrine Sulfate (Ephedrine In Ns) Confirm Administered Dose 25 mg .ROUTE .STK- MED ONE Stop: 08/04/16 10:12 Ephedrine Sulfate (Ephedrine Sulfate) 5 mg IVPUSH ASDIRECTED PRN PRN Reason: Hypotension Stop: 08/04/16 20:00 Fentanyl (Sublimaze) 50 mcg IVPUSH Q5M PRN PRN Reason: Pain Stop: 08/04/16 13:06 Hydromorphone HCl (Dilaudid) 0.5 mg IVPUSH Q2H PRN PRN Reason: Pain (severe 7-10) Stop: 08/04/16 18:00 Hydromorphone HCl (Dilaudid) 0.5 mg IVPUSH Q15M PRN PRN Reason: severe pain Stop: 08/04/16 13:06 Lactated Ringer's (Ringers, Lactated) 1,000 mls @ 125 mls/hr IV ASDIRECTED [facility] Last Admin: 08/04/16 12:42 Dose: 125 mls/hr Lidocaine HCl (Xylocaine-Mpf 1%) Confirm Administered Dose 2 mls @ as directed .ROUTE .STK-MED ONE Stop: 08/04/16 06:55 Lidocaine HCl (Xylocaine-Mpf 1%) Confirm Administered Dose 2 mls @ as directed .ROUTE .STK-MED ONE Stop: 08/04/16 06:55 Cefazolin Sodium/Dextrose 1 gm (/ Premix) 50 mls @ 200 mls/hr IV Q6H [facility] Stop: 08/05/16 07:14 Last Admin: 08/05/16 06:26 Dose: 200 mls/hr Lactated Ringer's (Ringers, Lactated) Confirm Administered Dose 1,000 mls @ as directed .ROUTE .STK-MED ONE Stop: 08/04/16 09:41 Magnesium Sulfate 2 gm/ Premix 50 mls @ 25 mls/hr IV ONETIME ONE Stop: 08/05/16 10:29 Last Admin: 08/05/16 09:01 Dose: 25 mls/hr Iodine (Iodine 2% Mild Tincture) Confirm Administered Dose 30 ml .ROUTE .STK- MED ONE Stop: 08/04/16 06:59 Last Admin: 08/04/16 09:28 Dose: 8 ml Lidocaine/Sodium Bicarbonate (Buffered Lidocaine 1% In Ns 8.4%) 0.25 ml IV ONETIME PRN PRN Reason: Prior to IV Start Stop: 08/04/16 18:00 Last Admin: 08/04/16 07:35 Dose: 0.25 ml Midazolam HCl (Versed 1 Mg/Ml) Confirm Administered Dose 2 mg .ROUTE .STK-MED ONE Stop: 08/04/16 07:01 Morphine Sulfate (Duramorph Pf) Confirm Administered Dose 10 mg .ROUTE .STK-MED ONE Stop: 08/04/16 06:56 Morphine Sulfate (Ms Contin) 15 mg PO ONETIME NICKY Stop: 08/04/16 18:00 Ondansetron HCl (Zofran) 4 mg IVPUSH Q4H PRN PRN Reason: Nausea/Vomiting Stop: 08/04/16 18:00 Ondansetron HCl (Zofran) Confirm Administered Dose 4 mg .ROUTE .STK-MED ONE Stop: 08/04/16 11:25 Ondansetron HCl (Zofran) 4 mg IVPUSH ONETIME PRN PRN Reason: Nausea/Vomiting Stop: 08/04/16 18:00 Oxycodone/Acetaminophen (Percocet 325-5 Mg) 1 - 2 tab PO Q4H PRN PRN Reason: Pain (severe 7-10) Stop: 08/04/16 16:00 Propofol (Diprivan 20 Ml) Confirm Administered Dose 200 mg .ROUTE .STK-MED ONE Stop: 08/04/16 06:55 Propofol (Diprivan 20 Ml) Confirm Administered Dose 200 mg .ROUTE .STK-MED ONE Stop: 08/04/16 09:09 Propofol (Diprivan 20 Ml) Confirm Administered Dose 200 mg .ROUTE .STK-MED ONE Stop: 08/04/16 09:51 Sodium Chloride (Saline Flush) 10 ml FLUSH ASDIRECTED PRN PRN Reason: Keep Vein Open Stop: 08/04/16 18:00 Consult PN Assessment/Plan Procedures: Procedures BLOOD TYPING SEROLOGIC ABO (07/13/16) BLOOD TYPING SEROLOGIC RH(D) (07/13/16) CHEST X-RAY 2VW FRONTAL&LATL (07/13/16) MR-STAPH DNA AMP PROBE (07/13/16) OFFICE/OUTPATIENT VISIT EST (07/13/16) RBC ANTIBODY SCREEN (07/13/16) ROUTINE VENIPUNCTURE (07/13/16) X-RAY EXAM HIP UNI 2-3 VIEWS (06/13/16) Plan: Agree with above, dc plan in progress. <Jana Sharpe M - Last Filed: 08/05/16 13:02> - General Info Date of Service: 08/05/16 Admission Dx/Problem (Free Text): Admission Diagnosis/Problem Admission Diagnosis/Problem Hip pain Patient is POD #1, Rt KRISTIN with Dr. Shaikh Slept well, pain is controlled. He is on 2L/NC overnight- other VSS. Hgb this am is 10.9 Functional Status: Reports: pain controlled, tolerating diet, ambulating, urinating. Denies: new symptoms - Review of Systems General: Denies: Fever HEENT: Reports: no symptoms Pulmonary: Reports: no symptoms, other (on supplemental O2). Denies: shortness of breath, cough Cardiovascular: Reports: No Symptoms. Denies: Chest Pain, Palpitations, Dyspnea on Exertion, Lightheadedness Gastrointestinal: Reports: No symptoms Genitourinary: Reports: no symptoms Musculoskeletal: Reports: leg pain (rt hip) Neurological: Reports: No Symptoms Psychiatric: Reports: no symptoms - Patient Data Vitals - most recent: Last Vital Signs Temp 98.4 F 08/05/16 04:22 Pulse 66 08/05/16 04:22 Resp 16 08/05/16 06:55 BP 112/74 08/05/16 04:22 Pulse Ox 94 L 08/05/16 04:22 Weight - most recent: 204 lb 3.2 oz I&O - last 24 hours: Intake & Output 08/04/16 08/05/16 08/05/16 22:59 06:59 14:59 Intake Total 1640 650 Output Total 450 850 Balance 1190 -200 Lab Results last 24 hrs: Laboratory Results - last 24 hr 08/04/16 08/04/16 08/04/16 Range/Units 07:39 08:00 15:21 WBC (4.23-9.07) K/mm3 RBC (4.63-6.08) M/mm3 Hgb (13.7-17.5) gm/L Hct (40.1-51.0) % MCV (79.0-92.2) fl MCH (25.7-32.2) pg MCHC (32.2-35.5) g/dl RDW Std Deviation (35.1-43.9) fL Plt Count (163-337) K/mm3 MPV (9.4-12.3) fl Neut % (Auto) (34.0-67.9) % Lymph % (Auto) (21.8-53.1) % Harper % (Auto) (5.3-12.2) % Eos % (Auto) (0.8-7.0) Baso % (Auto) (0.1-1.2) % Neut # (Auto) (1.78-5.38) K/mm3 Lymph # (Auto) (1.32-3.57) K/mm3 Harper # (Auto) (0.30-0.82) K/mm3 Eos # (Auto) (0.04-0.54) K/mm3 Baso # (Auto) (0.01-0.08) K/mm3 Puncture Site Rt radial ABG pH 7.33 L (7.35-7.45) ABG pCO2 59.9 H (35.0-45.0) mmHg ABG pO2 70.0 L (80.0-100.0) mmHg ABG HCO3 30.6 H (22.0-26.0) meq/L ABG O2 Saturation 94.2 L (96.0-97.0) % ABG Base Excess 3.8 H (-2-2.0) Darren Test Positive A-a Gradient 34 mmHg O2 Delivery Device Nasal cannula Oxygen Flow Rate 2.0 FiO2 28.00 (21.00-100.00) % Sodium (136-145) mEq/L Potassium (3.5-5.1) mEq/L Chloride (98-107) mEq/L Carbon Dioxide (21-32) mEq/L Anion Gap (5-15) BUN (7-18) mg/dL Creatinine (0.7-1.3) mg/dL Est Cr Clr Drug Dosing mL/min Estimated GFR (MDRD) (>60) mL/min BUN/Creatinine Ratio (14-18) Glucose (83-115) mg/dL POC Glucose 103 (83-110) mg/dL Hemoglobin A1c (4.50-6.20) % Calcium (8.5-10.1) mg/dL Magnesium (1.8-2.4) mg/dl Hepatitis C Antibody (NEGATIVE) HIV-1 Ab Rapid Screen (NEGATIVE) Blood Type O NEGATIVE Gel Antibody Screen Negative Crossmatch See Detail 08/04/16 08/04/16 08/04/16 Range/Units 16:31 17:54 21:13 WBC (4.23-9.07) K/mm3 RBC (4.63-6.08) M/mm3 Hgb 11.8 L (13.7-17.5) gm/L Hct (40.1-51.0) % MCV (79.0-92.2) fl MCH (25.7-32.2) pg MCHC (32.2-35.5) g/dl RDW Std Deviation (35.1-43.9) fL Plt Count (163-337) K/mm3 MPV (9.4-12.3) fl Neut % (Auto) (34.0-67.9) % Lymph % (Auto) (21.8-53.1) % Harper % (Auto) (5.3-12.2) % Eos % (Auto) (0.8-7.0) Baso % (Auto) (0.1-1.2) % Neut # (Auto) (1.78-5.38) K/mm3 Lymph # (Auto) (1.32-3.57) K/mm3 Harper # (Auto) (0.30-0.82) K/mm3 Eos # (Auto) (0.04-0.54) K/mm3 Baso # (Auto) (0.01-0.08) K/mm3 Puncture Site ABG pH (7.35-7.45) ABG pCO2 (35.0-45.0) mmHg ABG pO2 (80.0-100.0) mmHg ABG HCO3 (22.0-26.0) meq/L ABG O2 Saturation (96.0-97.0) % ABG Base Excess (-2-2.0) Darren Test A-a Gradient mmHg O2 Delivery Device Oxygen Flow Rate FiO2 (21.00-100.00) % Sodium (136-145) mEq/L Potassium (3.5-5.1) mEq/L Chloride (98-107) mEq/L Carbon Dioxide (21-32) mEq/L Anion Gap (5-15) BUN (7-18) mg/dL Creatinine (0.7-1.3) mg/dL Est Cr Clr Drug Dosing mL/min Estimated GFR (MDRD) (>60) mL/min BUN/Creatinine Ratio (14-18) Glucose (83-115) mg/dL POC Glucose 111 H 99 (83-110) mg/dL Hemoglobin A1c (4.50-6.20) % Calcium (8.5-10.1) mg/dL Magnesium (1.8-2.4) mg/dl Hepatitis C Antibody (NEGATIVE) HIV-1 Ab Rapid Screen (NEGATIVE) Blood Type Gel Antibody Screen Crossmatch 08/04/16 08/05/16 08/05/16 Range/Units 21:22 04:14 04:14 WBC 10.53 H (4.23-9.07) K/mm3 RBC 3.66 L (4.63-6.08) M/mm3 Hgb 10.9 L (13.7-17.5) gm/L Hct 33.8 L (40.1-51.0) % MCV 92.3 H (79.0-92.2) fl MCH 29.8 (25.7-32.2) pg MCHC 32.2 (32.2-35.5) g/dl RDW Std Deviation 44.3 H (35.1-43.9) fL Plt Count 182 (163-337) K/mm3 MPV 10.2 (9.4-12.3) fl Neut % (Auto) 71.9 H (34.0-67.9) % Lymph % (Auto) 12.2 L (21.8-53.1) % Harper % (Auto) 12.8 H (5.3-12.2) % Eos % (Auto) 2.5 (0.8-7.0) Baso % (Auto) 0.4 (0.1-1.2) % Neut # (Auto) 7.58 H (1.78-5.38) K/mm3 Lymph # (Auto) 1.28 L (1.32-3.57) K/mm3 Harper # (Auto) 1.35 H (0.30-0.82) K/mm3 Eos # (Auto) 0.26 (0.04-0.54) K/mm3 Baso # (Auto) 0.04 (0.01-0.08) K/mm3 Puncture Site ABG pH (7.35-7.45) ABG pCO2 (35.0-45.0) mmHg ABG pO2 (80.0-100.0) mmHg ABG HCO3 (22.0-26.0) meq/L ABG O2 Saturation (96.0-97.0) % ABG Base Excess (-2-2.0) Darren Test A-a Gradient mmHg O2 Delivery Device Oxygen Flow Rate FiO2 (21.00-100.00) % Sodium 134 L (136-145) mEq/L Potassium 4.4 (3.5-5.1) mEq/L Chloride 101 (98-107) mEq/L Carbon Dioxide 33 H (21-32) mEq/L Anion Gap 4.4 L (5-15) BUN 20 H (7-18) mg/dL Creatinine 0.7 (0.7-1.3) mg/dL Est Cr Clr Drug Dosing 87.87 mL/min Estimated GFR (MDRD) > 60 (>60) mL/min BUN/Creatinine Ratio 28.6 H (14-18) Glucose 112 (83-115) mg/dL POC Glucose (83-110) mg/dL Hemoglobin A1c (4.50-6.20) % Calcium 8.3 L (8.5-10.1) mg/dL Magnesium 1.7 L (1.8-2.4) mg/dl Hepatitis C Antibody Negative (NEGATIVE) HIV-1 Ab Rapid Screen Negative (NEGATIVE) Blood Type Gel Antibody Screen Crossmatch 08/05/16 08/05/16 Range/Units 04:14 06:48 WBC (4.23-9.07) K/mm3 RBC (4.63-6.08) M/mm3 Hgb (13.7-17.5) gm/L Hct (40.1-51.0) % MCV (79.0-92.2) fl MCH (25.7-32.2) pg MCHC (32.2-35.5) g/dl RDW Std Deviation (35.1-43.9) fL Plt Count (163-337) K/mm3 MPV (9.4-12.3) fl Neut % (Auto) (34.0-67.9) % Lymph % (Auto) (21.8-53.1) % Harper % (Auto) (5.3-12.2) % Eos % (Auto) (0.8-7.0) Baso % (Auto) (0.1-1.2) % Neut # (Auto) (1.78-5.38) K/mm3 Lymph # (Auto) (1.32-3.57) K/mm3 Harper # (Auto) (0.30-0.82) K/mm3 Eos # (Auto) (0.04-0.54) K/mm3 Baso # (Auto) (0.01-0.08) K/mm3 Puncture Site ABG pH (7.35-7.45) ABG pCO2 (35.0-45.0) mmHg ABG pO2 (80.0-100.0) mmHg ABG HCO3 (22.0-26.0) meq/L ABG O2 Saturation (96.0-97.0) % ABG Base Excess (-2-2.0) Darren Test A-a Gradient mmHg O2 Delivery Device Oxygen Flow Rate FiO2 (21.00-100.00) % Sodium (136-145) mEq/L Potassium (3.5-5.1) mEq/L Chloride (98-107) mEq/L Carbon Dioxide (21-32) mEq/L Anion Gap (5-15) BUN (7-18) mg/dL Creatinine (0.7-1.3) mg/dL Est Cr Clr Drug Dosing mL/min Estimated GFR (MDRD) (>60) mL/min BUN/Creatinine Ratio (14-18) Glucose (83-115) mg/dL POC Glucose 112 H (83-110) mg/dL Hemoglobin A1c 5.80 (4.50-6.20) % Calcium (8.5-10.1) mg/dL Magnesium (1.8-2.4) mg/dl Hepatitis C Antibody (NEGATIVE) HIV-1 Ab Rapid Screen (NEGATIVE) Blood Type Gel Antibody Screen Crossmatch Med Orders - Current: Current Medications Albuterol (Proventil Neb Soln) 2.5 mg NEB Q6H PRN PRN Reason: SOB/wheezing Last Admin: 08/04/16 17:21 Dose: 2.5 mg Aspirin (Halfprin) 81 mg PO DAILY [facility] Cholecalciferol (Vitamin D3) 5,000 units PO DAILY [facility] Cyclobenzaprine HCl (Flexeril) 10 - 20 mg PO Q8H PRN PRN Reason: Muscle Spasm Last Admin: 08/05/16 06:27 Dose: 10 mg Dextrose/Water (Dextrose 50% In Water) 50 ml IVPUSH ASDIRECTED PRN PRN Reason: Hypoglycemia Enoxaparin Sodium (Lovenox) 40 mg SUBCUT DAILY [facility] Famotidine (Pepcid) 20 mg PO BID [facility] Last Admin: 08/04/16 21:37 Dose: 20 mg Hydrochlorothiazide (Hydrochlorothiazide) 25 mg PO DAILY [facility] Magnesium Sulfate 2 gm/ Premix 50 mls @ 25 mls/hr IV ONETIME ONE Stop: 08/05/16 09:21 Insulin Aspart (Novolog) 0 unit SUBCUT QIDACANDBED [facility] PRN Reason: Protocol Last Admin: 08/05/16 06:51 Dose: Not Given Ketorolac Tromethamine (Toradol) 15 mg IVPUSH Q6H PRN PRN Reason: Pain (severe 7-10) Last Admin: 08/05/16 06:26 Dose: 15 mg Lisinopril (Prinivil) 40 mg PO DAILY [facility] Simvastatin (Zocor) 20 mg PO BEDTIME [facility] Last Admin: 08/04/16 21:38 Dose: 20 mg Vit A/Vit C/Vit E/Selen/Cu/Zn/Lutei (Icaps Mv) 1 tab PO BID [facility] Last Admin: 08/04/16 21:38 Dose: 1 tab Discontinued Medications Bupivacaine HCl/Epinephrine Bitart (Marcaine 0.5%/Epinephrine 1:200,000) Confirm Administered Dose 50 ml .ROUTE .STK-MED ONE Stop: 08/04/16 08:39 Last Admin: 08/04/16 09:28 Dose: 20 ml Cefazolin Sodium (Ancef) Confirm Administered Dose 1 gm .ROUTE .STK-MED ONE Stop: 08/04/16 06:55 Cefazolin Sodium (Ancef) Confirm Administered Dose 1 gm .ROUTE .STK-MED ONE Stop: 08/04/16 06:55 Cefazolin Sodium (Ancef) Confirm Administered Dose 1 gm .ROUTE .STK-MED ONE Stop: 08/04/16 10:59 Diphenhydramine HCl (Benadryl) 25 mg IVPUSH Q6H PRN PRN Reason: pruritis Stop: 08/04/16 20:00 Ephedrine Sulfate (Ephedrine In Ns) Confirm Administered Dose 25 mg .ROUTE .STK- MED ONE Stop: 08/04/16 09:41 Ephedrine Sulfate (Ephedrine In Ns) Confirm Administered Dose 25 mg .ROUTE .STK- MED ONE Stop: 08/04/16 10:12 Ephedrine Sulfate (Ephedrine Sulfate) 5 mg IVPUSH ASDIRECTED PRN PRN Reason: Hypotension Stop: 08/04/16 20:00 Fentanyl (Sublimaze) 50 mcg IVPUSH Q5M PRN PRN Reason: Pain Stop: 08/04/16 13:06 Hydromorphone HCl (Dilaudid) 0.5 mg IVPUSH Q2H PRN PRN Reason: Pain (severe 7-10) Stop: 08/04/16 18:00 Hydromorphone HCl (Dilaudid) 0.5 mg IVPUSH Q15M PRN PRN Reason: severe pain Stop: 08/04/16 13:06 Lactated Ringer's (Ringers, Lactated) 1,000 mls @ 125 mls/hr IV ASDIRECTED NICKY Last Admin: 08/04/16 12:42 Dose: 125 mls/hr Lidocaine HCl (Xylocaine-Mpf 1%) Confirm Administered Dose 2 mls @ as directed .ROUTE .STK-MED ONE Stop: 08/04/16 06:55 Lidocaine HCl (Xylocaine-Mpf 1%) Confirm Administered Dose 2 mls @ as directed .ROUTE .STK-MED ONE Stop: 08/04/16 06:55 Cefazolin Sodium/Dextrose 1 gm (/ Premix) 50 mls @ 200 mls/hr IV Q6H [facility] Stop: 08/05/16 07:14 Last Admin: 08/05/16 06:26 Dose: 200 mls/hr Lactated Ringer's (Ringers, Lactated) Confirm Administered Dose 1,000 mls @ as directed .ROUTE .STK-MED ONE Stop: 08/04/16 09:41 Iodine (Iodine 2% Mild Tincture) Confirm Administered Dose 30 ml .ROUTE .STK- MED ONE Stop: 08/04/16 06:59 Last Admin: 08/04/16 09:28 Dose: 8 ml Lidocaine/Sodium Bicarbonate (Buffered Lidocaine 1% In Ns 8.4%) 0.25 ml IV ONETIME PRN PRN Reason: Prior to IV Start Stop: 08/04/16 18:00 Last Admin: 08/04/16 07:35 Dose: 0.25 ml Midazolam HCl (Versed 1 Mg/Ml) Confirm Administered Dose 2 mg .ROUTE .STK-MED ONE Stop: 08/04/16 07:01 Morphine Sulfate (Duramorph Pf) Confirm Administered Dose 10 mg .ROUTE .STK-MED ONE Stop: 08/04/16 06:56 Morphine Sulfate (Ms Contin) 15 mg PO ONETIME [facility] Stop: 08/04/16 18:00 Ondansetron HCl (Zofran) 4 mg IVPUSH Q4H PRN PRN Reason: Nausea/Vomiting Stop: 08/04/16 18:00 Ondansetron HCl (Zofran) Confirm Administered Dose 4 mg .ROUTE .STK-MED ONE Stop: 08/04/16 11:25 Ondansetron HCl (Zofran) 4 mg IVPUSH ONETIME PRN PRN Reason: Nausea/Vomiting Stop: 08/04/16 18:00 Oxycodone/Acetaminophen (Percocet 325-5 Mg) 1 - 2 tab PO Q4H PRN PRN Reason: Pain (severe 7-10) Stop: 08/04/16 16:00 Propofol (Diprivan 20 Ml) Confirm Administered Dose 200 mg .ROUTE .STK-MED ONE Stop: 08/04/16 06:55 Propofol (Diprivan 20 Ml) Confirm Administered Dose 200 mg .ROUTE .STK-MED ONE Stop: 08/04/16 09:09 Propofol (Diprivan 20 Ml) Confirm Administered Dose 200 mg .ROUTE .STK-MED ONE Stop: 08/04/16 09:51 Sodium Chloride (Saline Flush) 10 ml FLUSH ASDIRECTED PRN PRN Reason: Keep Vein Open Stop: 08/04/16 18:00 - Exam Quality Assessment: supplemental oxygen, DVT prophylaxis General: alert, oriented, cooperative, no acute distress HEENT: Pupils equal, Pupils reactive, EOMI, Mucous membr. moist/pink Neck: supple Lungs: Clear to auscultation, Normal respiratory effort, Decreased breath sounds (to bases), Wheezing (intermittent scatterd expiratory) Cardiovascular: Regular Rate, Regular Rhythm Abdomen: bowel sounds present, soft, no tenderness, no distension (Male) Exam: Deferred Extremities: no edema, no calf tenderness, other (teds bilat;scd's bilat) Peripheral Pulses: 1+: Dorsalis Pedis (L), Dorsalis Pedis (R) Wound/Incisions: dressing dry and intact, other (drain present) Neurological: no new focal deficit Psy/Mental Status: alert, normal affect, normal mood Consult PN Assessment/Plan POD#: 1 Procedures: Procedures BLOOD TYPING SEROLOGIC ABO (07/13/16) BLOOD TYPING SEROLOGIC RH(D) (07/13/16) CHEST X-RAY 2VW FRONTAL&LATL (07/13/16) MR-STAPH DNA AMP PROBE (07/13/16) OFFICE/OUTPATIENT VISIT EST (07/13/16) RBC ANTIBODY SCREEN (07/13/16) ROUTINE VENIPUNCTURE (07/13/16) X-RAY EXAM HIP UNI 2-3 VIEWS (06/13/16) (1) S/P total hip arthroplasty SNOMED Code(s): 213477219575, 384646738324 Code(s): Z96.649 - PRESENCE OF UNSPECIFIED ARTIFICIAL HIP JOINT Priority: High Current Visit: Yes Qualifiers: Laterality: right Qualified Code(s): Z96.641 - Presence of right artificial hip joint (2) Osteoarthritis SNOMED Code(s): 177206622 Code(s): M19.90 - UNSPECIFIED OSTEOARTHRITIS, UNSPECIFIED SITE Priority: High Current Visit: Yes Qualifiers: Osteoarthritis location: hip Osteoarthritis type: primary Laterality: right Qualified Code(s): M16.11 - Unilateral primary osteoarthritis, right hip (3) HTN (hypertension) SNOMED Code(s): 09254806 Code(s): I10 - ESSENTIAL (PRIMARY) HYPERTENSION Priority: Medium Current Visit: No Qualifiers: Hypertension type: essential hypertension Qualified Code(s): I10 - Essential (primary) hypertension (4) HLD (hyperlipidemia) SNOMED Code(s): 85100944 Code(s): E78.5 - HYPERLIPIDEMIA, UNSPECIFIED Priority: Medium Current Visit: No Qualifiers: Hyperlipidemia type: unspecified Qualified Code(s): E78.5 - Hyperlipidemia , unspecified (5) COPD (chronic obstructive pulmonary disease) SNOMED Code(s): 31593140 Code(s): J44.9 - CHRONIC OBSTRUCTIVE PULMONARY DISEASE, UNSPECIFIED Priority: Medium Current Visit: No Qualifiers: Emphysema type: unspecified (6) Type 2 diabetes mellitus SNOMED Code(s): 22583353 Code(s): E11.9 - TYPE 2 DIABETES MELLITUS WITHOUT COMPLICATIONS Priority: High Current Visit: Yes Qualifiers: Diabetes mellitus complication status: without complication Diabetes mellitus watermaster insulin use: without watermaster use Qualified Code(s): E11.9 - Type 2 diabetes mellitus without complications (7) History of nephrolithiasis SNOMED Code(s): 855483826 Code(s): Z87.442 - PERSONAL HISTORY OF URINARY CALCULI Priority: Medium Current Visit: No (8) Postoperative anemia due to acute blood loss SNOMED Code(s): 11111386749426014 Code(s): D62 - ACUTE POSTHEMORRHAGIC ANEMIA Priority: High Current Visit : Yes Problem List Initiated/Reviewed/Updated: Yes My Orders last 24 hours: My Active Orders 08/04/16 08:00 RED BLOOD CELLS LP [BBK] Routine 08/04/16 15:43 IS (RT) [RT Incentive Spirometry] [RC] Q2HWA Albuterol [Proventil Neb Soln] 2.5 mg NEB Q6H PRN 08/04/16 15:44 RT Aerosol Therapy [RC] ASDIRECTED 08/04/16 15:47 Accu Check [Blood Glucose Check, Bedside] [RC] WITHMEALSANDBED Dextrose 50% in Water 50 ml IVPUSH ASDIRECTED PRN 08/04/16 16:16 Transfuse Red Blood Cells [COMM] Routine 08/04/16 17:00 Insulin Aspart [NovoLOG] See Protocol SUBCUT QIDACANDBED 08/04/16 21:00 Famotidine [Pepcid] 20 mg PO BID Multivitamins/Min/FA/Lut/Zeax [ICaps MV] 1 tab PO BID Simvastatin [Zocor] 20 mg PO BEDTIME 08/04/16 Dinner Heart Healthy Diet [DIET] 08/05/16 07:22 Magnesium Sulfate/Water [Magnesium Sulfate 2 GM in Water 50 ML] 2 gm Premix Bag 1 bag IV ONETIME 08/05/16 09:00 Aspirin [Halfprin] 81 mg PO DAILY Cholecalciferol (Vitamin D3) [Vitamin D3] 5,000 units PO DAILY Hydrochlorothiazide 25 mg PO DAILY Lisinopril [Prinivil] 40 mg PO DAILY 08/06/16 05:11 BASIC METABOLIC PANEL,BMP [CHEM] AM CBC WITH AUTO DIFF [HEME] AM MAGNESIUM [CHEM] AM 08/07/16 05:11 BASIC METABOLIC PANEL,BMP [CHEM] AM CBC WITH AUTO DIFF [HEME] AM MAGNESIUM [CHEM] AM 08/08/16 05:11 BASIC METABOLIC PANEL,BMP [CHEM] AM CBC WITH AUTO DIFF [HEME] AM MAGNESIUM [CHEM] AM Plan: I/P S/P Rt KRISTIN with Dr. Shaikh: POD #1 -Pain managment and DVT prophylax per Ortho -PT/OT -IS/C&DB/RT/nebs PRN -patient is home alone with no assistance; plans SNF/Rehab stay Postoperative blood loss -EBL intraoperative 350cc; PACU 400cc; since arrival to the floor 300cc -S/P 1unit PRBC with hgb of 10.8 this am, hemodynamically stable -cont to follow am hgb Other chronic conditions: HTN- cont home meds of HCTZ, lisinopril HLD- cont statin COPD- stable, on no home meds, supplemental oxygen to keep sats >90%, albuterol nebs PRN and RT tx DM- not on any home meds; A1C will be ordered, Accuchecks AC/HS with SSI coverage ED Hx nephrolithiasis Other: CM/SW for DC planning- plans SNF stay for rehab PT/OT GI prophylax Patient is Full Code status
--- NOTE | 2016-08-05 08:09 | OR ---
DATE OF OPERATION: 08/04/2016 SURGEON: Fadi Shaikh MD PREOPERATIVE DIAGNOSIS: Severe osteoarthritis right hip with intractable pain. POSTOPERATIVE DIAGNOSIS: Severe osteoarthritis right hip with intractable pain. ANESTHESIA: Spinal with light sedation. OPERATION PERFORMED: 1. Right total hip replacement. 2. Percutaneous adductor tenotomy, right hip. ESTIMATED BLOOD LOSS: 350 mL. DESCRIPTION OF PROCEDURE: The patient was taken to the operating room in supine position, placed on a spinal anesthetic. After spinal anesthesia had anesthetized the right lower extremity, the patient was then transferred to the left lateral decubitus position. In the left lateral decubitus position, the right hip was then prepped and draped for a standard anterolateral approach for a right hip total hip replacement surgery. Once prepping and draping was completed, the operation then proceeded with an oblique incision being placed across the greater trochanter approximately 1 inch distal to its tip, about 30 degree angulation, and was approximately 4-5 cm in length. Penetration through the skin and the subcutaneous tissues. These were dissected off the fascia chanell. The fascia chanell was incised in line with the axis of the femur thus exposing the gluteus medius. The gluteus medius was then split in the anterior corner and opened up to visualize the gluteus minimus. Using electrocautery, the gluteus minimus was then incised down the capsule paralleling its fibers and then an L-type release was then carried out to the greater trochanter and then the anterior portion of the gluteus medius and minimus was then reflected away from the anterior portion of the greater trochanter. Once that was completed, the deeper tissues were released gaining a very good exposure of the hip capsule. Capsulectomy was then performed. The hip was then dislocated and the femoral neck was then cut. The operation proceeded with standard reaming of the acetabulum after debriding. It was noted the patient had a fairly large spur coming off the anterior inferior portion of the acetabular region and later in the course of surgery this was found to impinge on the femoral neck. This was removed with an osteotome. The operation proceeded after standard reaming, the 58 size cup was then impacted into the acetabulum with 45 degrees abduction approximately 20 degrees anteversion. Once in place, the operation then proceeded with final inspection of the cup to make sure was solid, a trial insert was then placed into the cup and then the operation proceeded to the femoral side where the femur was then placed in the side bag again exposure to the distal tip. Once that was exposed, the standard approach was to open up the femoral neck down into the femoral canal with a Charnley reamer. Once that was completed, it was then reamed to approximately 14 size reamer for insertion of the prosthesis. Once the opening of the canal was in place, the standard trial femoral broaches were then placed into the canal. It was fitted to a regular size rather than an MMA type and going with the 14 or 15 size stem, this was left in place. The trial femoral neck was applied. Once that was in place with a neutral setting, the hip was then reduced. The hip was then stressed through full abduction and adduction, was found to have some decreased coverage slightly anteriorly. The pistoning effect of the hip with the current prosthesis in there, the trial was absolutely nil, but no pistoning was noted. The operation then proceeded with removal of the trial femoral prosthesis on the femoral neck and head and also the acetabular cup. The permanent acetabular cup was then inserted with a 10-degree angulation of the cup remaining slightly superior. Once that was in place, the operation then proceeded with insertion of the femoral stem. This was impacted into the femur and with solid fixation with no loosening noted. The operation then proceeded with application of the femoral head and then the hip was then reduced into place. Once reduced, it went through another trial of motion. It may be noted that during the course of the trial range of motion, putting a finger over the acetabular area inferior found the osteophyte impinging on the femoral neck, but once that was removed with the permanent prosthesis in place, there was no impingement noted on palpation. The hip was very stable. There was no pistoning on direct examination. The operation then proceeded with irrigation. Irrigation was carried out through the whole wound all through the procedure using the iodine solution. Once the irrigation of the deep tissues was completed, the operation proceeded with drill holes to the greater trochanter. #5 FiberWire was used to reattach the gluteus minimus and medius to the greater trochanter anteriorly. The interval was closed with #1 Vicryl. The operation proceeded with closure of the fascia chanell with #1 Vicryl, the subcutaneous tissues with #1 Vicryl and #2 Vicryl, and skin with skin tom. Once the wound was closed, the operation then proceeded with the placement of the patient in the supine position. In testing of the hip pre-surgery, the adductors were very tight, and post surgery, the adductors are still very tight, less than 10 degrees motion, which would definitely cause some significant problems for bathroom type activity. It was opted then to perform a percutaneous adductor release. The groin area was prepped by standard technique and then the adductor tendon was identified. Using a #11 blade, the skin was pierced. The level of the adductor tendon was released as the hip was placed into more abduction, could easily go to 30 degrees abduction with the release being carried out. Standard dressings were applied along with a sandbag to the right groin. The patient tolerated the whole procedure well. He left the operating room in stable condition with standard dressings and Hemovac. WILMAR /[id number]
[2016-08-05] MEDS ORDERED: Magnesium Sulfate/Water 2 GM in Premix Bag 1 BAG IV ONE (08:30)
[2016-08-05] MEDS: Famotidine 20 MG Tab PO SCH ×2 (08:59→21:30)
[2016-08-05] MEDS: Hydrochlorothiazide 25 MG Tab PO SCH (08:59)
[2016-08-05] MEDS: Aspirin 81 MG Tab.EC PO SCH (08:59)
[2016-08-05] MEDS: Multivitamins with Minerals/Folic Acid/Lutein/Zeaxanth Tab PO SCH ×2 (09:00→21:30)
[2016-08-05] MEDS: Lisinopril 20 MG Tab PO SCH (09:00)
[2016-08-05] MEDS: Cholecalciferol (Vitamin D3) 1,000 Unit Tab PO SCH (09:00)
[2016-08-05] MEDS: Enoxaparin 40 MG/0.4 ML Syringe SUBCUT SCH (09:01)
[2016-08-05] MEDS: Acetaminophen/oxyCODONE 325-5 MG Tab PO PRN ×2 (10:09→21:57)
[2016-08-05] MEDS: Sodium Chloride 0.9% 250 ML IV SCH ×2 (14:17→15:14)
[2016-08-05] MEDS: Albuterol 0.083% 2.5 MG/3 ML Neb Soln NEB PRN (14:44)
[2016-08-05] MEDS ORDERED: predniSONE 20 MG Tab PO ONE (15:00)
[2016-08-05] MEDS ORDERED: diphenhydrAMINE 50 MG/ML SDV IVPUSH ONE (15:00)
[2016-08-05] MEDS ORDERED: Sodium Chloride 0.9% 250 ML IV ONE (15:30)
[2016-08-05] MEDS ORDERED: Sodium Chloride 0.9% 1,000 ML IV SCH (15:45)
[2016-08-05] MEDS: Simvastatin 20 MG Tab PO SCH (21:57)
[2016-08-06] MEDS: Insulin Aspart 100 Units/ML 3 ML Pen SUBCUT SCH ×2 (06:38→11:20)
[2016-08-06] MEDS: Multivitamins with Minerals/Folic Acid/Lutein/Zeaxanth Tab PO SCH ×2 (07:59→19:59)
[2016-08-06] MEDS: Cholecalciferol (Vitamin D3) 1,000 Unit Tab PO SCH (07:59)
[2016-08-06] MEDS: Acetaminophen/oxyCODONE 325-5 MG Tab PO PRN ×3 (07:59→16:09)
[2016-08-06] MEDS: Hydrochlorothiazide 25 MG Tab PO SCH (08:00)
[2016-08-06] MEDS: Famotidine 20 MG Tab PO SCH ×2 (08:00→20:00)
[2016-08-06] MEDS: Aspirin 81 MG Tab.EC PO SCH (08:00)
[2016-08-06] MEDS: Enoxaparin 40 MG/0.4 ML Syringe SUBCUT SCH (08:00)
[2016-08-06] MEDS: Lisinopril 20 MG Tab PO SCH (08:00)
[2016-08-06] MEDS: Cyclobenzaprine 10 MG Tab PO PRN ×2 (08:00→16:10)
[2016-08-06] MEDS ORDERED: Lactulose Soln 10 GM/15 ML 30 ML UD Cup PO ONE (13:43)
--- NOTE | 2016-08-06 13:52 | PCM.CONSN ---
- General Info Date of Service: 08/06/16 Functional Status: Reports: pain controlled, tolerating diet, urinating - Review of Systems General: Reports: No Symptoms HEENT: Reports: no symptoms Pulmonary: Reports: no symptoms Cardiovascular: Reports: No Symptoms Gastrointestinal: Reports: No symptoms Genitourinary: Reports: no symptoms Musculoskeletal: Reports: no symptoms Skin: Reports: no symptoms Neurological: Reports: No Symptoms Psychiatric: Reports: no symptoms - Patient Data Vitals - most recent: Last Vital Signs Temp 36.9 C 08/06/16 11:59 Pulse 65 08/06/16 11:59 Resp 12 08/06/16 11:59 BP 114/54 L 08/06/16 11:59 Pulse Ox 98 08/06/16 11:59 Weight - most recent: 91.081 kg I&O - last 24 hours: Intake & Output 08/05/16 08/06/16 08/06/16 22:59 06:59 14:59 Intake Total 925 450 Output Total 925 1600 Balance 0 -1150 Lab Results last 24 hrs: Laboratory Results - last 24 hr 08/04/16 08/05/16 08/05/16 Range/Units 08:00 15:47 18:28 WBC (4.23-9.07) K/mm3 RBC (4.63-6.08) M/mm3 Hgb (13.7-17.5) gm/L Hct (40.1-51.0) % MCV (79.0-92.2) fl MCH (25.7-32.2) pg MCHC (32.2-35.5) g/dl RDW Std Deviation (35.1-43.9) fL Plt Count (163-337) K/mm3 MPV (9.4-12.3) fl Neut % (Auto) (34.0-67.9) % Lymph % (Auto) (21.8-53.1) % [place] % (Auto) (5.3-12.2) % Eos % (Auto) (0.8-7.0) Baso % (Auto) (0.1-1.2) % Neut # (Auto) (1.78-5.38) K/mm3 Lymph # (Auto) (1.32-3.57) K/mm3 [place] # (Auto) (0.30-0.82) K/mm3 Eos # (Auto) (0.04-0.54) K/mm3 Baso # (Auto) (0.01-0.08) K/mm3 Manual Slide Review Sodium (136-145) mEq/L Potassium (3.5-5.1) mEq/L Chloride (98-107) mEq/L Carbon Dioxide (21-32) mEq/L Anion Gap (5-15) BUN (7-18) mg/dL Creatinine (0.7-1.3) mg/dL Est Cr Clr Drug Dosing mL/min Estimated GFR (MDRD) (>60) mL/min BUN/Creatinine Ratio (14-18) Glucose (83-115) mg/dL POC Glucose 114 H (83-110) mg/dL Calcium (8.5-10.1) mg/dL Magnesium (1.8-2.4) mg/dl Blood Type O NEGATIVE Gel Antibody Screen Negative Crossmatch See Detail Tx Rx Implicated Unit 1 [id number] Unit 1 Component Prbc Tx React Review Date 08/05/2016 Reaction Clerical Check Acceptable Pre-Trans Vis Hemolysis Negative Pre-Trans Icterus Negative Post-Trans Blood Type O negative Post-Tx Visible Hemolys Negative Post-Trans Icterus Negative Post-Trans TANK IgG Negative Reaction Pathol Review Delonte camacho md 08/06/16 08/06/16 08/06/16 Range/Units 04:30 04:30 11:17 WBC 12.56 H (4.23-9.07) K/mm3 RBC 3.39 L (4.63-6.08) M/mm3 Hgb 10.2 L (13.7-17.5) gm/L Hct 31.1 L (40.1-51.0) % MCV 91.7 (79.0-92.2) fl MCH 30.1 (25.7-32.2) pg MCHC 32.8 (32.2-35.5) g/dl RDW Std Deviation 42.9 (35.1-43.9) fL Plt Count 182 (163-337) K/mm3 MPV 10.6 (9.4-12.3) fl Neut % (Auto) 77.4 H (34.0-67.9) % Lymph % (Auto) 8.5 L (21.8-53.1) % [place] % (Auto) 13.3 H (5.3-12.2) % Eos % (Auto) 0.5 L (0.8-7.0) Baso % (Auto) 0.2 (0.1-1.2) % Neut # (Auto) 9.73 H (1.78-5.38) K/mm3 Lymph # (Auto) 1.07 L (1.32-3.57) K/mm3 [place] # (Auto) 1.67 H (0.30-0.82) K/mm3 Eos # (Auto) 0.06 (0.04-0.54) K/mm3 Baso # (Auto) 0.02 (0.01-0.08) K/mm3 Manual Slide Review Abnormal smear Sodium 139 (136-145) mEq/L Potassium 4.1 (3.5-5.1) mEq/L Chloride 103 (98-107) mEq/L Carbon Dioxide 31 (21-32) mEq/L Anion Gap 9.1 (5-15) BUN 18 (7-18) mg/dL Creatinine 0.7 (0.7-1.3) mg/dL Est Cr Clr Drug Dosing 87.87 mL/min Estimated GFR (MDRD) > 60 (>60) mL/min BUN/Creatinine Ratio 25.7 H (14-18) Glucose 113 (83-115) mg/dL POC Glucose 95 (83-110) mg/dL Calcium 8.4 L (8.5-10.1) mg/dL Magnesium 2.1 (1.8-2.4) mg/dl Blood Type Gel Antibody Screen Crossmatch Tx Rx Implicated Unit 1 Unit 1 Component Tx React Review Date Reaction Clerical Check Pre-Trans Vis Hemolysis Pre-Trans Icterus Post-Trans Blood Type Post-Tx Visible Hemolys Post-Trans Icterus Post-Trans TANK IgG Reaction Pathol Review Med Orders - Current: Current Medications Albuterol (Proventil Neb Soln) 2.5 mg NEB Q6H PRN PRN Reason: SOB/wheezing Last Admin: 08/05/16 14:44 Dose: 2.5 mg Aspirin (Halfprin) 81 mg PO DAILY NICKY Last Admin: 08/06/16 08:00 Dose: 81 mg Cholecalciferol (Vitamin D3) 5,000 units PO DAILY NICKY Last Admin: 08/06/16 07:59 Dose: 5,000 units Cyclobenzaprine HCl (Flexeril) 10 - 20 mg PO Q8H PRN PRN Reason: Muscle Spasm Last Admin: 08/06/16 08:00 Dose: 10 mg Dextrose/Water (Dextrose 50% In Water) 50 ml IVPUSH ASDIRECTED PRN PRN Reason: Hypoglycemia Enoxaparin Sodium (Lovenox) 40 mg SUBCUT DAILY [facility] Last Admin: 08/06/16 08:00 Dose: 40 mg Famotidine (Pepcid) 20 mg PO BID [facility] Last Admin: 08/06/16 08:00 Dose: 20 mg Hydrochlorothiazide (Hydrochlorothiazide) 25 mg PO DAILY [facility] Last Admin: 08/06/16 08:00 Dose: 25 mg Ketorolac Tromethamine (Toradol) 15 mg IVPUSH Q6H PRN PRN Reason: Pain (severe 7-10) Last Admin: 08/05/16 06:26 Dose: 15 mg Lisinopril (Prinivil) 40 mg PO DAILY [facility] Last Admin: 08/06/16 08:00 Dose: 40 mg Oxycodone/Acetaminophen (Percocet 325-5 Mg) 1 - 2 tab PO Q4H PRN PRN Reason: Pain (severe 7-10) Last Admin: 08/06/16 12:31 Dose: 2 tab Simvastatin (Zocor) 20 mg PO BEDTIME [facility] Last Admin: 08/05/16 21:57 Dose: 20 mg Vit A/Vit C/Vit E/Selen/Cu/Zn/Lutei (Icaps Mv) 1 tab PO BID [facility] Last Admin: 08/06/16 07:59 Dose: 1 tab Discontinued Medications Bupivacaine HCl/Epinephrine Bitart (Marcaine 0.5%/Epinephrine 1:200,000) Confirm Administered Dose 50 ml .ROUTE .STK-MED ONE Stop: 08/04/16 08:39 Last Admin: 08/04/16 09:28 Dose: 20 ml Cefazolin Sodium (Ancef) Confirm Administered Dose 1 gm .ROUTE .STK-MED ONE Stop: 08/04/16 06:55 Cefazolin Sodium (Ancef) Confirm Administered Dose 1 gm .ROUTE .STK-MED ONE Stop: 08/04/16 06:55 Cefazolin Sodium (Ancef) Confirm Administered Dose 1 gm .ROUTE .STK-MED ONE Stop: 08/04/16 10:59 Diphenhydramine HCl (Benadryl) 25 mg IVPUSH Q6H PRN PRN Reason: pruritis Stop: 08/04/16 20:00 Diphenhydramine HCl (Benadryl) 25 mg IVPUSH ONETIME ONE Stop: 08/05/16 15:01 Last Admin: 08/05/16 14:57 Dose: 25 mg Ephedrine Sulfate (Ephedrine In Ns) Confirm Administered Dose 25 mg .ROUTE .STK- MED ONE Stop: 08/04/16 09:41 Ephedrine Sulfate (Ephedrine In Ns) Confirm Administered Dose 25 mg .ROUTE .STK- MED ONE Stop: 08/04/16 10:12 Ephedrine Sulfate (Ephedrine Sulfate) 5 mg IVPUSH ASDIRECTED PRN PRN Reason: Hypotension Stop: 08/04/16 20:00 Fentanyl (Sublimaze) 50 mcg IVPUSH Q5M PRN PRN Reason: Pain Stop: 08/04/16 13:06 Hydromorphone HCl (Dilaudid) 0.5 mg IVPUSH Q2H PRN PRN Reason: Pain (severe 7-10) Stop: 08/04/16 18:00 Hydromorphone HCl (Dilaudid) 0.5 mg IVPUSH Q15M PRN PRN Reason: severe pain Stop: 08/04/16 13:06 Lactated Ringer's (Ringers, Lactated) 1,000 mls @ 125 mls/hr IV ASDIRECTED NICKY Last Admin: 08/04/16 12:42 Dose: 125 mls/hr Lidocaine HCl (Xylocaine-Mpf 1%) Confirm Administered Dose 2 mls @ as directed .ROUTE .STK-MED ONE Stop: 08/04/16 06:55 Lidocaine HCl (Xylocaine-Mpf 1%) Confirm Administered Dose 2 mls @ as directed .ROUTE .STK-MED ONE Stop: 08/04/16 06:55 Cefazolin Sodium/Dextrose 1 gm (/ Premix) 50 mls @ 200 mls/hr IV Q6H NICKY Stop: 08/05/16 07:14 Last Admin: 08/05/16 06:26 Dose: 200 mls/hr Lactated Ringer's (Ringers, Lactated) Confirm Administered Dose 1,000 mls @ as directed .ROUTE .STK-MED ONE Stop: 08/04/16 09:41 Magnesium Sulfate 2 gm/ Premix 50 mls @ 25 mls/hr IV ONETIME ONE Stop: 08/05/16 10:29 Last Admin: 08/05/16 09:01 Dose: 25 mls/hr Sodium Chloride (Normal Saline) 250 mls @ 25 mls/hr IV ASDIRECTED [facility] Last Admin: 08/05/16 15:14 Dose: 25 mls/hr Sodium Chloride (Normal Saline) 250 mls @ 998.89 mls/hr IV .BOLUS ONE Stop: 08/05/16 15:45 Last Admin: 08/05/16 15:50 Dose: Not Given Sodium Chloride (Normal Saline) 1,000 mls @ 100 mls/hr IV ASDIRECTED [facility] Stop: 08/05/16 19:00 Last Admin: 08/05/16 15:43 Dose: 100 mls/hr Insulin Aspart (Novolog) 0 unit SUBCUT QIDACANDBED [facility] PRN Reason: Protocol Last Admin: 08/06/16 11:20 Dose: Not Given Iodine (Iodine 2% Mild Tincture) Confirm Administered Dose 30 ml .ROUTE .STK- MED ONE Stop: 08/04/16 06:59 Last Admin: 08/04/16 09:28 Dose: 8 ml Lactulose (Cephulac) 20 gm PO ONETIME ONE Stop: 08/06/16 13:44 Lidocaine/Sodium Bicarbonate (Buffered Lidocaine 1% In Ns 8.4%) 0.25 ml IV ONETIME PRN PRN Reason: Prior to IV Start Stop: 08/04/16 18:00 Last Admin: 08/04/16 07:35 Dose: 0.25 ml Midazolam HCl (Versed 1 Mg/Ml) Confirm Administered Dose 2 mg .ROUTE .STK-MED ONE Stop: 08/04/16 07:01 Morphine Sulfate (Duramorph Pf) Confirm Administered Dose 10 mg .ROUTE .STK-MED ONE Stop: 08/04/16 06:56 Morphine Sulfate (Ms Contin) 15 mg PO ONETIME [facility] Stop: 08/04/16 18:00 Ondansetron HCl (Zofran) 4 mg IVPUSH Q4H PRN PRN Reason: Nausea/Vomiting Stop: 08/04/16 18:00 Ondansetron HCl (Zofran) Confirm Administered Dose 4 mg .ROUTE .STK-MED ONE Stop: 08/04/16 11:25 Ondansetron HCl (Zofran) 4 mg IVPUSH ONETIME PRN PRN Reason: Nausea/Vomiting Stop: 08/04/16 18:00 Oxycodone/Acetaminophen (Percocet 325-5 Mg) 1 - 2 tab PO Q4H PRN PRN Reason: Pain (severe 7-10) Stop: 08/04/16 16:00 Prednisone (Prednisone) 20 mg PO ONETIME ONE Stop: 08/05/16 15:01 Last Admin: 08/05/16 14:57 Dose: 20 mg Propofol (Diprivan 20 Ml) Confirm Administered Dose 200 mg .ROUTE .STK-MED ONE Stop: 08/04/16 06:55 Propofol (Diprivan 20 Ml) Confirm Administered Dose 200 mg .ROUTE .STK-MED ONE Stop: 08/04/16 09:09 Propofol (Diprivan 20 Ml) Confirm Administered Dose 200 mg .ROUTE .STK-MED ONE Stop: 08/04/16 09:51 Sodium Chloride (Saline Flush) 10 ml FLUSH ASDIRECTED PRN PRN Reason: Keep Vein Open Stop: 08/04/16 18:00 - Exam Quality Assessment: DVT prophylaxis General: alert, oriented, cooperative, no acute distress HEENT: Pupils equal, Pupils reactive, EOMI Neck: supple, trachea midline Lungs: Normal respiratory effort Cardiovascular: Regular Rate, Regular Rhythm Abdomen: bowel sounds present, soft, no tenderness, no distension (Male) Exam: Deferred Back Exam: Normal Inspection Extremities: normal pulses Skin: warm Wound/Incisions: healing well, dressing dry and intact Neurological: no new focal deficit, normal speech Psy/Mental Status: alert, normal affect, normal mood Consult PN Assessment/Plan POD#: 2 Procedures: Procedures BLOOD TYPING SEROLOGIC ABO (07/13/16) BLOOD TYPING SEROLOGIC RH(D) (07/13/16) CHEST X-RAY 2VW FRONTAL&LATL (07/13/16) MR-STAPH DNA AMP PROBE (07/13/16) OFFICE/OUTPATIENT VISIT EST (07/13/16) RBC ANTIBODY SCREEN (07/13/16) ROUTINE VENIPUNCTURE (07/13/16) X-RAY EXAM HIP UNI 2-3 VIEWS (06/13/16) Problem List Initiated/Reviewed/Updated: Yes My Orders last 24 hours: My Active Orders 08/05/16 18:28 TRANSFUSION REACTION [BBK] Routine Plan: Impression/Plan: Right hip arthroplasty, POD 2 Drain removed, increase activity Pain controlled Hgb stable DVT/GI prophylaxis
[2016-08-06] MEDS: Simvastatin 20 MG Tab PO SCH (20:00)
[2016-08-07] MEDS: Acetaminophen/oxyCODONE 325-5 MG Tab PO PRN ×2 (00:44→06:33)
[2016-08-07] MEDS: Cyclobenzaprine 10 MG Tab PO PRN ×2 (05:41→21:43)
[2016-08-07] MEDS ORDERED: Bisacodyl 10 MG Supp RECTAL ONE (06:21)
[2016-08-07] MEDS: Multivitamins with Minerals/Folic Acid/Lutein/Zeaxanth Tab PO SCH ×2 (08:01→21:11)
[2016-08-07] MEDS: Cholecalciferol (Vitamin D3) 1,000 Unit Tab PO SCH (08:01)
[2016-08-07] MEDS: Hydrochlorothiazide 25 MG Tab PO SCH (08:02)
[2016-08-07] MEDS: Enoxaparin 40 MG/0.4 ML Syringe SUBCUT SCH (08:02)
[2016-08-07] MEDS: Famotidine 20 MG Tab PO SCH ×2 (08:02→21:11)
[2016-08-07] MEDS: Aspirin 81 MG Tab.EC PO SCH (08:02)
[2016-08-07] MEDS: Lisinopril 20 MG Tab PO SCH (08:07)
[2016-08-07] MEDS: Albuterol 0.083% 2.5 MG/3 ML Neb Soln NEB PRN (08:33)
--- NOTE | 2016-08-07 11:00 | PCM.CONSN ---
- General Info Date of Service: 08/07/16 Functional Status: Reports: pain controlled, tolerating diet, ambulating, urinating - Review of Systems General: Reports: No Symptoms HEENT: Reports: no symptoms Pulmonary: Reports: no symptoms Cardiovascular: Reports: No Symptoms Gastrointestinal: Reports: No symptoms Genitourinary: Reports: no symptoms Musculoskeletal: Reports: no symptoms Skin: Reports: no symptoms Neurological: Reports: No Symptoms Psychiatric: Reports: no symptoms - Patient Data Vitals - most recent: Last Vital Signs Temp 36.4 C 08/07/16 08:06 Pulse 70 08/07/16 08:07 Resp 17 08/07/16 08:06 BP 95/37 L 08/07/16 08:06 Pulse Ox 95 08/07/16 08:33 Weight - most recent: 91.671 kg I&O - last 24 hours: Intake & Output 08/06/16 08/07/16 08/07/16 22:59 06:59 14:59 Intake Total 810 400 0 Output Total 900 Balance 810 -500 0 Lab Results last 24 hrs: Laboratory Results - last 24 hr 08/05/16 08/06/16 08/07/16 Range/Units 18:28 11:17 04:30 WBC (4.23-9.07) K/mm3 RBC (4.63-6.08) M/mm3 Hgb (13.7-17.5) gm/L Hct (40.1-51.0) % MCV (79.0-92.2) fl MCH (25.7-32.2) pg MCHC (32.2-35.5) g/dl RDW Std Deviation (35.1-43.9) fL Plt Count (163-337) K/mm3 MPV (9.4-12.3) fl Neut % (Auto) (34.0-67.9) % Lymph % (Auto) (21.8-53.1) % Banner % (Auto) (5.3-12.2) % Eos % (Auto) (0.8-7.0) Baso % (Auto) (0.1-1.2) % Neut # (Auto) (1.78-5.38) K/mm3 Lymph # (Auto) (1.32-3.57) K/mm3 Banner # (Auto) (0.30-0.82) K/mm3 Eos # (Auto) (0.04-0.54) K/mm3 Baso # (Auto) (0.01-0.08) K/mm3 Manual Slide Review Sodium 138 (136-145) mEq/L Potassium 4.0 (3.5-5.1) mEq/L Chloride 102 (98-107) mEq/L Carbon Dioxide 31 (21-32) mEq/L Anion Gap 9.0 (5-15) BUN 28 H (7-18) mg/dL Creatinine 0.9 (0.7-1.3) mg/dL Est Cr Clr Drug Dosing 68.34 mL/min Estimated GFR (MDRD) > 60 (>60) mL/min BUN/Creatinine Ratio 31.1 H (14-18) Glucose 105 (83-115) mg/dL POC Glucose 95 (83-110) mg/dL Calcium 8.1 L (8.5-10.1) mg/dL Magnesium 2.0 (1.8-2.4) mg/dl Tx Rx Implicated Unit 1 [id number] Unit 1 Component Prbc Tx React Review Date 08/05/2016 Reaction Clerical Check Acceptable Pre-Trans Vis Hemolysis Negative Pre-Trans Icterus Negative Post-Trans Blood Type O negative Post-Tx Visible Hemolys Negative Post-Trans Icterus Negative Post-Trans TANK IgG Negative Reaction Interpretation Non-hem transf rx Reaction Pathol Review Delonte camacho md 08/07/16 Range/Units 04:32 WBC 13.12 H (4.23-9.07) K/mm3 RBC 3.33 L (4.63-6.08) M/mm3 Hgb 10.0 L (13.7-17.5) gm/L Hct 31.1 L (40.1-51.0) % MCV 93.4 H (79.0-92.2) fl MCH 30.0 (25.7-32.2) pg MCHC 32.2 (32.2-35.5) g/dl RDW Std Deviation 45.7 H (35.1-43.9) fL Plt Count 204 (163-337) K/mm3 MPV 10.6 (9.4-12.3) fl Neut % (Auto) 71.3 H (34.0-67.9) % Lymph % (Auto) 12.7 L (21.8-53.1) % Banner % (Auto) 11.6 (5.3-12.2) % Eos % (Auto) 4.0 (0.8-7.0) Baso % (Auto) 0.2 (0.1-1.2) % Neut # (Auto) 9.35 H (1.78-5.38) K/mm3 Lymph # (Auto) 1.66 (1.32-3.57) K/mm3 Banner # (Auto) 1.52 H (0.30-0.82) K/mm3 Eos # (Auto) 0.53 (0.04-0.54) K/mm3 Baso # (Auto) 0.03 (0.01-0.08) K/mm3 Manual Slide Review Abnormal smear Sodium (136-145) mEq/L Potassium (3.5-5.1) mEq/L Chloride (98-107) mEq/L Carbon Dioxide (21-32) mEq/L Anion Gap (5-15) BUN (7-18) mg/dL Creatinine (0.7-1.3) mg/dL Est Cr Clr Drug Dosing mL/min Estimated GFR (MDRD) (>60) mL/min BUN/Creatinine Ratio (14-18) Glucose (83-115) mg/dL POC Glucose (83-110) mg/dL Calcium (8.5-10.1) mg/dL Magnesium (1.8-2.4) mg/dl Tx Rx Implicated Unit 1 Unit 1 Component Tx React Review Date Reaction Clerical Check Pre-Trans Vis Hemolysis Pre-Trans Icterus Post-Trans Blood Type Post-Tx Visible Hemolys Post-Trans Icterus Post-Trans TANK IgG Reaction Interpretation Reaction Pathol Review Med Orders - Current: Current Medications Albuterol (Proventil Neb Soln) 2.5 mg NEB Q6H PRN PRN Reason: SOB/wheezing Last Admin: 08/07/16 08:33 Dose: 2.5 mg Aspirin (Halfprin) 81 mg PO DAILY NICKY Last Admin: 08/07/16 08:02 Dose: 81 mg Cholecalciferol (Vitamin D3) 5,000 units PO DAILY NICKY Last Admin: 08/07/16 08:01 Dose: 5,000 units Cyclobenzaprine HCl (Flexeril) 10 - 20 mg PO Q8H PRN PRN Reason: Muscle Spasm Last Admin: 08/07/16 05:41 Dose: 10 mg Dextrose/Water (Dextrose 50% In Water) 50 ml IVPUSH ASDIRECTED PRN PRN Reason: Hypoglycemia Enoxaparin Sodium (Lovenox) 40 mg SUBCUT DAILY [facility] Last Admin: 08/07/16 08:02 Dose: 40 mg Famotidine (Pepcid) 20 mg PO BID [facility] Last Admin: 08/07/16 08:02 Dose: 20 mg Hydrochlorothiazide (Hydrochlorothiazide) 25 mg PO DAILY [facility] Last Admin: 08/07/16 08:02 Dose: 25 mg Ketorolac Tromethamine (Toradol) 15 mg IVPUSH Q6H PRN PRN Reason: Pain (severe 7-10) Last Admin: 08/05/16 06:26 Dose: 15 mg Lisinopril (Prinivil) 40 mg PO DAILY [facility] Last Admin: 08/07/16 08:07 Dose: Not Given Oxycodone/Acetaminophen (Percocet 325-5 Mg) 1 - 2 tab PO Q4H PRN PRN Reason: Pain (severe 7-10) Last Admin: 08/07/16 06:33 Dose: 2 tab Simvastatin (Zocor) 20 mg PO BEDTIME [facility] Last Admin: 08/06/16 20:00 Dose: 20 mg Vit A/Vit C/Vit E/Selen/Cu/Zn/Lutei (Icaps Mv) 1 tab PO BID [facility] Last Admin: 08/07/16 08:01 Dose: 1 tab Discontinued Medications Bisacodyl (Dulcolax) 10 mg RECTAL ONETIME ONE Stop: 08/07/16 06:22 Last Admin: 08/07/16 06:33 Dose: 10 mg Bupivacaine HCl/Epinephrine Bitart (Marcaine 0.5%/Epinephrine 1:200,000) Confirm Administered Dose 50 ml .ROUTE .STK-MED ONE Stop: 08/04/16 08:39 Last Admin: 08/04/16 09:28 Dose: 20 ml Cefazolin Sodium (Ancef) Confirm Administered Dose 1 gm .ROUTE .STK-MED ONE Stop: 08/04/16 06:55 Cefazolin Sodium (Ancef) Confirm Administered Dose 1 gm .ROUTE .STK-MED ONE Stop: 08/04/16 06:55 Cefazolin Sodium (Ancef) Confirm Administered Dose 1 gm .ROUTE .STK-MED ONE Stop: 08/04/16 10:59 Diphenhydramine HCl (Benadryl) 25 mg IVPUSH Q6H PRN PRN Reason: pruritis Stop: 08/04/16 20:00 Diphenhydramine HCl (Benadryl) 25 mg IVPUSH ONETIME ONE Stop: 08/05/16 15:01 Last Admin: 08/05/16 14:57 Dose: 25 mg Ephedrine Sulfate (Ephedrine In Ns) Confirm Administered Dose 25 mg .ROUTE .STK- MED ONE Stop: 08/04/16 09:41 Ephedrine Sulfate (Ephedrine In Ns) Confirm Administered Dose 25 mg .ROUTE .STK- MED ONE Stop: 08/04/16 10:12 Ephedrine Sulfate (Ephedrine Sulfate) 5 mg IVPUSH ASDIRECTED PRN PRN Reason: Hypotension Stop: 08/04/16 20:00 Fentanyl (Sublimaze) 50 mcg IVPUSH Q5M PRN PRN Reason: Pain Stop: 08/04/16 13:06 Hydromorphone HCl (Dilaudid) 0.5 mg IVPUSH Q2H PRN PRN Reason: Pain (severe 7-10) Stop: 08/04/16 18:00 Hydromorphone HCl (Dilaudid) 0.5 mg IVPUSH Q15M PRN PRN Reason: severe pain Stop: 08/04/16 13:06 Lactated Ringer's (Ringers, Lactated) 1,000 mls @ 125 mls/hr IV ASDIRECTED [facility] Last Admin: 08/04/16 12:42 Dose: 125 mls/hr Lidocaine HCl (Xylocaine-Mpf 1%) Confirm Administered Dose 2 mls @ as directed .ROUTE .STK-MED ONE Stop: 08/04/16 06:55 Lidocaine HCl (Xylocaine-Mpf 1%) Confirm Administered Dose 2 mls @ as directed .ROUTE .STK-MED ONE Stop: 08/04/16 06:55 Cefazolin Sodium/Dextrose 1 gm (/ Premix) 50 mls @ 200 mls/hr IV Q6H NICK[facility] Stop: 08/05/16 07:14 Last Admin: 08/05/16 06:26 Dose: 200 mls/hr Lactated Ringer's (Ringers, Lactated) Confirm Administered Dose 1,000 mls @ as directed .ROUTE .STK-MED ONE Stop: 08/04/16 09:41 Magnesium Sulfate 2 gm/ Premix 50 mls @ 25 mls/hr IV ONETIME ONE Stop: 08/05/16 10:29 Last Admin: 08/05/16 09:01 Dose: 25 mls/hr Sodium Chloride (Normal Saline) 250 mls @ 25 mls/hr IV ASDIRECTED [facility] Last Admin: 08/05/16 15:14 Dose: 25 mls/hr Sodium Chloride (Normal Saline) 250 mls @ 998.89 mls/hr IV .BOLUS ONE Stop: 08/05/16 15:45 Last Admin: 08/05/16 15:50 Dose: Not Given Sodium Chloride (Normal Saline) 1,000 mls @ 100 mls/hr IV ASDIRECTED [facility] Stop: 08/05/16 19:00 Last Admin: 08/05/16 15:43 Dose: 100 mls/hr Insulin Aspart (Novolog) 0 unit SUBCUT QIDACANDBED [facility] PRN Reason: Protocol Last Admin: 08/06/16 11:20 Dose: Not Given Iodine (Iodine 2% Mild Tincture) Confirm Administered Dose 30 ml .ROUTE .STK- MED ONE Stop: 08/04/16 06:59 Last Admin: 08/04/16 09:28 Dose: 8 ml Lactulose (Cephulac) 20 gm PO ONETIME ONE Stop: 08/06/16 13:44 Last Admin: 08/06/16 13:58 Dose: 20 gm Lidocaine/Sodium Bicarbonate (Buffered Lidocaine 1% In Ns 8.4%) 0.25 ml IV ONETIME PRN PRN Reason: Prior to IV Start Stop: 08/04/16 18:00 Last Admin: 08/04/16 07:35 Dose: 0.25 ml Midazolam HCl (Versed 1 Mg/Ml) Confirm Administered Dose 2 mg .ROUTE .STK-MED ONE Stop: 08/04/16 07:01 Morphine Sulfate (Duramorph Pf) Confirm Administered Dose 10 mg .ROUTE .STK-MED ONE Stop: 08/04/16 06:56 Morphine Sulfate (Ms Contin) 15 mg PO ONETIME [facility] Stop: 08/04/16 18:00 Ondansetron HCl (Zofran) 4 mg IVPUSH Q4H PRN PRN Reason: Nausea/Vomiting Stop: 08/04/16 18:00 Ondansetron HCl (Zofran) Confirm Administered Dose 4 mg .ROUTE .STK-MED ONE Stop: 08/04/16 11:25 Ondansetron HCl (Zofran) 4 mg IVPUSH ONETIME PRN PRN Reason: Nausea/Vomiting Stop: 08/04/16 18:00 Oxycodone/Acetaminophen (Percocet 325-5 Mg) 1 - 2 tab PO Q4H PRN PRN Reason: Pain (severe 7-10) Stop: 08/04/16 16:00 Prednisone (Prednisone) 20 mg PO ONETIME ONE Stop: 08/05/16 15:01 Last Admin: 08/05/16 14:57 Dose: 20 mg Propofol (Diprivan 20 Ml) Confirm Administered Dose 200 mg .ROUTE .STK-MED ONE Stop: 08/04/16 06:55 Propofol (Diprivan 20 Ml) Confirm Administered Dose 200 mg .ROUTE .STK-MED ONE Stop: 08/04/16 09:09 Propofol (Diprivan 20 Ml) Confirm Administered Dose 200 mg .ROUTE .STK-MED ONE Stop: 08/04/16 09:51 Sodium Chloride (Saline Flush) 10 ml FLUSH ASDIRECTED PRN PRN Reason: Keep Vein Open Stop: 08/04/16 18:00 - Exam Quality Assessment: DVT prophylaxis General: alert, oriented, cooperative HEENT: Pupils equal, Pupils reactive, EOMI Neck: supple, trachea midline, no JVD Lungs: Decreased breath sounds Cardiovascular: Regular Rate, Regular Rhythm Abdomen: bowel sounds present, soft, no tenderness, no distension (Male) Exam: Deferred Back Exam: Normal Inspection Extremities: normal pulses Skin: warm Wound/Incisions: healing well Neurological: no new focal deficit Psy/Mental Status: alert Consult PN Assessment/Plan POD#: 2 Procedures: Procedures BLOOD TYPING SEROLOGIC ABO (07/13/16) BLOOD TYPING SEROLOGIC RH(D) (07/13/16) CHEST X-RAY 2VW FRONTAL&LATL (07/13/16) MR-STAPH DNA AMP PROBE (07/13/16) OFFICE/OUTPATIENT VISIT EST (07/13/16) RBC ANTIBODY SCREEN (07/13/16) ROUTINE VENIPUNCTURE (07/13/16) X-RAY EXAM HIP UNI 2-3 VIEWS (06/13/16) Problem List Initiated/Reviewed/Updated: Yes
[2016-08-07] MEDS: Acetaminophen 325 MG Tab PO PRN ×3 (12:56→23:13)
[2016-08-07] MEDS: Simvastatin 20 MG Tab PO SCH (21:11)
[2016-08-08] MEDS: Acetaminophen 325 MG Tab PO PRN ×2 (03:52→11:48)
[2016-08-08 07:50] VITALS: BP 135/87
[2016-08-08] MEDS ORDERED: Magnesium Sulfate/Water 2 GM in Premix Bag 1 BAG IV ONE (08:02)
[2016-08-08] MEDS: Ketorolac 15 MG/ML SDV IVPUSH PRN (08:27)
[2016-08-08] MEDS: Cholecalciferol (Vitamin D3) 1,000 Unit Tab PO SCH (08:34)
[2016-08-08] MEDS: Hydrochlorothiazide 25 MG Tab PO SCH (08:34)
[2016-08-08] MEDS: Multivitamins with Minerals/Folic Acid/Lutein/Zeaxanth Tab PO SCH (08:34)
[2016-08-08] MEDS: Lisinopril 20 MG Tab PO SCH (08:34)
[2016-08-08] MEDS: Enoxaparin 40 MG/0.4 ML Syringe SUBCUT SCH (08:35)
[2016-08-08] MEDS: Aspirin 81 MG Tab.EC PO SCH (08:35)
[2016-08-08] MEDS: Famotidine 20 MG Tab PO SCH (08:35)
[2016-08-08] MEDS ORDERED: Magnesium Oxide 400 MG Tab PO SCH (09:00)
--- NOTE | 2016-08-08 09:49 | CR ---
Chest: Two views of the chest were obtained. Comparison: Previous chest x-ray of 07/13/16. Heart size and mediastinum are normal. Increased density is noted within the right lung base most likely representing thick areas of atelectasis. Lungs otherwise are clear. Bony structures are within normal limits for the patient's age. Impression: 1. Right basilar atelectasis. Nothing acute is otherwise seen on two-view chest x-ray. Diagnostic code #2
--- NOTE | 2016-08-08 10:10 | PN ---
DATE OF SERVICE: 08/07/2016 HISTORY: This is a 75-year-old male, who underwent a right total hip replacement on 08/04/2016 and currently is in the postoperative recovery phase. The patient has gone through the treatment program with Hemovacs, was removed on 08/06/2016 due to some excessive drainage on 08/05/2016. Otherwise, the patient's wound dressings have been changed. There is minimal discharge on the dressing as of 08/07/2016. The patient currently is having some unstable medical problems. They are delaying his discharge. These include current events maintaining his blood pressure. Currently, he has had a hypotensive event along with the patient having significant respiratory difficulty, currently on 3 L of oxygen, requiring a continued monitoring and working with his respiratory status. Currently, he is being followed by the respiratory personnel and has been working with the respiratory incentive spirometer along with the physical therapy on respiratory program. CURRENT PHYSICAL STATUS: The right hip wound is stable. No signs of infection noted. Minimal drainage at this point. His previous Hemovac wounds have healed quite nicely and also the patient had an adductor release in his right groin which shows no acute infection at this point. IMPRESSION: 1. Stable right total hip replacement. 2. Labile blood pressure status. 3. Respiratory status with decreased oxygenation which needs to be improved before discharge could be accomplished. PLAN: 1. The overall plan will be for the patient to continue his aggressive work with the respiratory department to increase his oxygenation. 2. Medically, the patient will continue to be stabilized for his blood pressure problems. 3. Plan will be for the patient to be discharged once he is stabilized to senior care. HEATHERODAL /[id number]
--- NOTE | 2016-08-08 11:01 | PCM.CONSN ---
- General Info Date of Service: 08/08/16 Admission Dx/Problem (Free Text): POD #[address] Shaikh Doing well, pain under good control, ambulating with therapies. No nausea. Plans for DC to SNF today for further rehab. Functional Status: Reports: pain controlled, tolerating diet, ambulating, urinating. Denies: new symptoms - Review of Systems General: Reports: No Symptoms HEENT: Reports: no symptoms Pulmonary: Reports: no symptoms Cardiovascular: Reports: No Symptoms Gastrointestinal: Reports: No symptoms Genitourinary: Reports: no symptoms Musculoskeletal: Reports: leg pain Skin: Reports: no symptoms Neurological: Reports: No Symptoms Psychiatric: Reports: no symptoms - Patient Data Vitals - most recent: Last Vital Signs Temp 99.1 F 08/08/16 07:47 Pulse 76 08/08/16 07:47 Resp 20 08/08/16 07:47 BP 135/87 08/08/16 08:34 Pulse Ox 96 08/08/16 07:47 Weight - most recent: 199 lb 1.6 oz I&O - last 24 hours: Intake & Output 08/07/16 08/08/16 08/08/16 22:59 06:59 14:59 Intake Total 1010 500 Output Total 700 1000 Balance 310 -500 Lab Results last 24 hrs: Laboratory Results - last 24 hr 08/05/16 08/06/16 08/08/16 Range/Units 21:29 06:31 06:15 WBC 9.11 H (4.23-9.07) K/mm3 RBC 3.41 L (4.63-6.08) M/mm3 Hgb 10.3 L (13.7-17.5) gm/L Hct 31.5 L (40.1-51.0) % MCV 92.4 H (79.0-92.2) fl MCH 30.2 (25.7-32.2) pg MCHC 32.7 (32.2-35.5) g/dl RDW Std Deviation 43.7 (35.1-43.9) fL Plt Count 229 (163-337) K/mm3 MPV 10.0 (9.4-12.3) fl Neut % (Auto) 60.9 (34.0-67.9) % Lymph % (Auto) 17.5 L (21.8-53.1) % Grainger % (Auto) 13.5 H (5.3-12.2) % Eos % (Auto) 7.4 H (0.8-7.0) Baso % (Auto) 0.4 (0.1-1.2) % Neut # (Auto) 5.55 H (1.78-5.38) K/mm3 Lymph # (Auto) 1.59 (1.32-3.57) K/mm3 Grainger # (Auto) 1.23 H (0.30-0.82) K/mm3 Eos # (Auto) 0.67 H (0.04-0.54) K/mm3 Baso # (Auto) 0.04 (0.01-0.08) K/mm3 Sodium (136-145) mEq/L Potassium (3.5-5.1) mEq/L Chloride (98-107) mEq/L Carbon Dioxide (21-32) mEq/L Anion Gap (5-15) BUN (7-18) mg/dL Creatinine (0.7-1.3) mg/dL Est Cr Clr Drug Dosing mL/min Estimated GFR (MDRD) (>60) mL/min BUN/Creatinine Ratio (14-18) Glucose (83-115) mg/dL POC Glucose 148 H 101 (83-110) mg/dL Calcium (8.5-10.1) mg/dL Magnesium (1.8-2.4) mg/dl /15/17 Range/Units 06:15 WBC (4.23-9.07) K/mm3 RBC (4.63-6.08) M/mm3 Hgb (13.7-17.5) gm/L Hct (40.1-51.0) % MCV (79.0-92.2) fl MCH (25.7-32.2) pg MCHC (32.2-35.5) g/dl RDW Std Deviation (35.1-43.9) fL Plt Count (163-337) K/mm3 MPV (9.4-12.3) fl Neut % (Auto) (34.0-67.9) % Lymph % (Auto) (21.8-53.1) % Grainger % (Auto) (5.3-12.2) % Eos % (Auto) (0.8-7.0) Baso % (Auto) (0.1-1.2) % Neut # (Auto) (1.78-5.38) K/mm3 Lymph # (Auto) (1.32-3.57) K/mm3 Grainger # (Auto) (0.30-0.82) K/mm3 Eos # (Auto) (0.04-0.54) K/mm3 Baso # (Auto) (0.01-0.08) K/mm3 Sodium 140 (136-145) mEq/L Potassium 4.2 (3.5-5.1) mEq/L Chloride 102 (98-107) mEq/L Carbon Dioxide 33 H (21-32) mEq/L Anion Gap 9.2 (5-15) BUN 20 H (7-18) mg/dL Creatinine 0.7 (0.7-1.3) mg/dL Est Cr Clr Drug Dosing 87.87 mL/min Estimated GFR (MDRD) > 60 (>60) mL/min BUN/Creatinine Ratio 28.6 H (14-18) Glucose 98 (83-115) mg/dL POC Glucose (83-110) mg/dL Calcium 8.6 (8.5-10.1) mg/dL Magnesium 1.7 L (1.8-2.4) mg/dl Med Orders - Current: Current Medications Acetaminophen (Tylenol) 650 mg PO Q4H PRN PRN Reason: Pain Last Admin: 08/08/16 03:52 Dose: 650 mg Albuterol (Proventil Neb Soln) 2.5 mg NEB Q6H PRN PRN Reason: SOB/wheezing Last Admin: 08/07/16 08:33 Dose: 2.5 mg Aspirin (Halfprin) 81 mg PO DAILY NICKY Last Admin: 08/08/16 08:35 Dose: 81 mg Cholecalciferol (Vitamin D3) 5,000 units PO DAILY NICKY Last Admin: 08/08/16 08:34 Dose: 5,000 units Cyclobenzaprine HCl (Flexeril) 10 - 20 mg PO Q8H PRN PRN Reason: Muscle Spasm Last Admin: 08/07/16 21:43 Dose: 10 mg Dextrose/Water (Dextrose 50% In Water) 50 ml IVPUSH ASDIRECTED PRN PRN Reason: Hypoglycemia Enoxaparin Sodium (Lovenox) 40 mg SUBCUT DAILY [facility] Last Admin: 08/08/16 08:35 Dose: 40 mg Famotidine (Pepcid) 20 mg PO BID [facility] Last Admin: 08/08/16 08:35 Dose: 20 mg Hydrochlorothiazide (Hydrochlorothiazide) 25 mg PO DAILY [facility] Last Admin: 08/08/16 08:34 Dose: 25 mg Ketorolac Tromethamine (Toradol) 15 mg IVPUSH Q6H PRN PRN Reason: Pain (severe 7-10) Last Admin: 08/08/16 08:27 Dose: 15 mg Lisinopril (Prinivil) 40 mg PO DAILY [facility] Last Admin: 08/08/16 08:34 Dose: 40 mg Magnesium Oxide (Magnesium Oxide) 400 mg PO DAILY [facility] Last Admin: 08/08/16 08:34 Dose: 400 mg Oxycodone/Acetaminophen (Percocet 325-5 Mg) 1 - 2 tab PO Q4H PRN PRN Reason: Pain (severe 7-10) Last Admin: 08/07/16 06:33 Dose: 2 tab Simvastatin (Zocor) 20 mg PO BEDTIME [facility] Last Admin: 08/07/16 21:11 Dose: 20 mg Vit A/Vit C/Vit E/Selen/Cu/Zn/Lutei (Icaps Mv) 1 tab PO BID [facility] Last Admin: 08/08/16 08:34 Dose: 1 tab Discontinued Medications Bisacodyl (Dulcolax) 10 mg RECTAL ONETIME ONE Stop: 08/07/16 06:22 Last Admin: 08/07/16 06:33 Dose: 10 mg Bupivacaine HCl/Epinephrine Bitart (Marcaine 0.5%/Epinephrine 1:200,000) Confirm Administered Dose 50 ml .ROUTE .STK-MED ONE Stop: 08/04/16 08:39 Last Admin: 08/04/16 09:28 Dose: 20 ml Cefazolin Sodium (Ancef) Confirm Administered Dose 1 gm .ROUTE .STK-MED ONE Stop: 08/04/16 06:55 Cefazolin Sodium (Ancef) Confirm Administered Dose 1 gm .ROUTE .STK-MED ONE Stop: 08/04/16 06:55 Cefazolin Sodium (Ancef) Confirm Administered Dose 1 gm .ROUTE .STK-MED ONE Stop: 08/04/16 10:59 Diphenhydramine HCl (Benadryl) 25 mg IVPUSH Q6H PRN PRN Reason: pruritis Stop: 08/04/16 20:00 Diphenhydramine HCl (Benadryl) 25 mg IVPUSH ONETIME ONE Stop: 08/05/16 15:01 Last Admin: 08/05/16 14:57 Dose: 25 mg Ephedrine Sulfate (Ephedrine In Ns) Confirm Administered Dose 25 mg .ROUTE .STK- MED ONE Stop: 08/04/16 09:41 Ephedrine Sulfate (Ephedrine In Ns) Confirm Administered Dose 25 mg .ROUTE .STK- MED ONE Stop: 08/04/16 10:12 Ephedrine Sulfate (Ephedrine Sulfate) 5 mg IVPUSH ASDIRECTED PRN PRN Reason: Hypotension Stop: 08/04/16 20:00 Fentanyl (Sublimaze) 50 mcg IVPUSH Q5M PRN PRN Reason: Pain Stop: 08/04/16 13:06 Hydromorphone HCl (Dilaudid) 0.5 mg IVPUSH Q2H PRN PRN Reason: Pain (severe 7-10) Stop: 08/04/16 18:00 Hydromorphone HCl (Dilaudid) 0.5 mg IVPUSH Q15M PRN PRN Reason: severe pain Stop: 08/04/16 13:06 Lactated Ringer's (Ringers, Lactated) 1,000 mls @ 125 mls/hr IV ASDIRECTED NICKY Last Admin: 08/04/16 12:42 Dose: 125 mls/hr Lidocaine HCl (Xylocaine-Mpf 1%) Confirm Administered Dose 2 mls @ as directed .ROUTE .STK-MED ONE Stop: 08/04/16 06:55 Lidocaine HCl (Xylocaine-Mpf 1%) Confirm Administered Dose 2 mls @ as directed .ROUTE .STK-MED ONE Stop: 08/04/16 06:55 Cefazolin Sodium/Dextrose 1 gm (/ Premix) 50 mls @ 200 mls/hr IV Q6H [facility] Stop: 08/05/16 07:14 Last Admin: 08/05/16 06:26 Dose: 200 mls/hr Lactated Ringer's (Ringers, Lactated) Confirm Administered Dose 1,000 mls @ as directed .ROUTE .STK-MED ONE Stop: 08/04/16 09:41 Magnesium Sulfate 2 gm/ Premix 50 mls @ 25 mls/hr IV ONETIME ONE Stop: 08/05/16 10:29 Last Admin: 08/05/16 09:01 Dose: 25 mls/hr Sodium Chloride (Normal Saline) 250 mls @ 25 mls/hr IV ASDIRECTED [facility] Last Admin: 08/05/16 15:14 Dose: 25 mls/hr Sodium Chloride (Normal Saline) 250 mls @ 998.89 mls/hr IV .BOLUS ONE Stop: 08/05/16 15:45 Last Admin: 08/05/16 15:50 Dose: Not Given Sodium Chloride (Normal Saline) 1,000 mls @ 100 mls/hr IV ASDIRECTED [facility] Stop: 08/05/16 19:00 Last Admin: 08/05/16 15:43 Dose: 100 mls/hr Magnesium Sulfate 2 gm/ Premix 50 mls @ 25 mls/hr IV ONETIME ONE Stop: 08/08/16 10:01 Last Admin: 08/08/16 08:31 Dose: 25 mls/hr Insulin Aspart (Novolog) 0 unit SUBCUT QIDACANDBED [facility] PRN Reason: Protocol Last Admin: 08/06/16 11:20 Dose: Not Given Iodine (Iodine 2% Mild Tincture) Confirm Administered Dose 30 ml .ROUTE .STK- MED ONE Stop: 08/04/16 06:59 Last Admin: 08/04/16 09:28 Dose: 8 ml Lactulose (Cephulac) 20 gm PO ONETIME ONE Stop: 08/06/16 13:44 Last Admin: 08/06/16 13:58 Dose: 20 gm Lidocaine/Sodium Bicarbonate (Buffered Lidocaine 1% In Ns 8.4%) 0.25 ml IV ONETIME PRN PRN Reason: Prior to IV Start Stop: 08/04/16 18:00 Last Admin: 08/04/16 07:35 Dose: 0.25 ml Midazolam HCl (Versed 1 Mg/Ml) Confirm Administered Dose 2 mg .ROUTE .STK-MED ONE Stop: 08/04/16 07:01 Morphine Sulfate (Duramorph Pf) Confirm Administered Dose 10 mg .ROUTE .STK-MED ONE Stop: 08/04/16 06:56 Morphine Sulfate (Ms Contin) 15 mg PO ONETIME [facility] Stop: 08/04/16 18:00 Ondansetron HCl (Zofran) 4 mg IVPUSH Q4H PRN PRN Reason: Nausea/Vomiting Stop: 08/04/16 18:00 Ondansetron HCl (Zofran) Confirm Administered Dose 4 mg .ROUTE .STK-MED ONE Stop: 08/04/16 11:25 Ondansetron HCl (Zofran) 4 mg IVPUSH ONETIME PRN PRN Reason: Nausea/Vomiting Stop: 08/04/16 18:00 Oxycodone/Acetaminophen (Percocet 325-5 Mg) 1 - 2 tab PO Q4H PRN PRN Reason: Pain (severe 7-10) Stop: 08/04/16 16:00 Prednisone (Prednisone) 20 mg PO ONETIME ONE Stop: 08/05/16 15:01 Last Admin: 08/05/16 14:57 Dose: 20 mg Propofol (Diprivan 20 Ml) Confirm Administered Dose 200 mg .ROUTE .STK-MED ONE Stop: 08/04/16 06:55 Propofol (Diprivan 20 Ml) Confirm Administered Dose 200 mg .ROUTE .STK-MED ONE Stop: 08/04/16 09:09 Propofol (Diprivan 20 Ml) Confirm Administered Dose 200 mg .ROUTE .STK-MED ONE Stop: 08/04/16 09:51 Sodium Chloride (Saline Flush) 10 ml FLUSH ASDIRECTED PRN PRN Reason: Keep Vein Open Stop: 08/04/16 18:00 - Exam Quality Assessment: supplemental oxygen (1-2L/NC), DVT prophylaxis General: alert, oriented, cooperative, no acute distress HEENT: Pupils equal, Pupils reactive, EOMI, Mucous membr. moist/pink Neck: supple Lungs: Clear to auscultation, Normal respiratory effort, Decreased breath sounds (bases bilat) Cardiovascular: Regular Rate, Regular Rhythm Abdomen: bowel sounds present, soft, no tenderness, no distension Extremities: no edema (to distal LE; teds bilat) Peripheral Pulses: 1+: Dorsalis Pedis (L), Dorsalis Pedis (R) Skin: warm, dry Wound/Incisions: dressing dry and intact Neurological: no new focal deficit Psy/Mental Status: alert, normal affect, normal mood Consult PN Assessment/Plan POD#: 4 Procedures: Procedures BLOOD TYPING SEROLOGIC ABO (07/13/16) BLOOD TYPING SEROLOGIC RH(D) (07/13/16) CHEST X-RAY 2VW FRONTAL&LATL (07/13/16) MR-STAPH DNA AMP PROBE (07/13/16) OFFICE/OUTPATIENT VISIT EST (07/13/16) RBC ANTIBODY SCREEN (07/13/16) ROUTINE VENIPUNCTURE (07/13/16) X-RAY EXAM HIP UNI 2-3 VIEWS (06/13/16) (1) S/P total hip arthroplasty SNOMED Code(s): 775530251625, 163549283177 Code(s): Z96.649 - PRESENCE OF UNSPECIFIED ARTIFICIAL HIP JOINT Priority: High Current Visit: Yes Qualifiers: Laterality: right Qualified Code(s): Z96.641 - Presence of right artificial hip joint (2) Osteoarthritis SNOMED Code(s): 285324967 Code(s): M19.90 - UNSPECIFIED OSTEOARTHRITIS, UNSPECIFIED SITE Priority: High Current Visit: Yes Qualifiers: Osteoarthritis location: hip Osteoarthritis type: primary Laterality: right Qualified Code(s): M16.11 - Unilateral primary osteoarthritis, right hip (3) HTN (hypertension) SNOMED Code(s): 65400207 Code(s): I10 - ESSENTIAL (PRIMARY) HYPERTENSION Priority: Medium Current Visit: No Qualifiers: Hypertension type: essential hypertension Qualified Code(s): I10 - Essential (primary) hypertension (4) HLD (hyperlipidemia) SNOMED Code(s): 81615921 Code(s): E78.5 - HYPERLIPIDEMIA, UNSPECIFIED Priority: Medium Current Visit: No Qualifiers: Hyperlipidemia type: unspecified Qualified Code(s): E78.5 - Hyperlipidemia , unspecified (5) COPD (chronic obstructive pulmonary disease) SNOMED Code(s): 10092069 Code(s): J44.9 - CHRONIC OBSTRUCTIVE PULMONARY DISEASE, UNSPECIFIED Priority: Medium Current Visit: No Qualifiers: Emphysema type: unspecified (6) Type 2 diabetes mellitus SNOMED Code(s): 38834296 Code(s): E11.9 - TYPE 2 DIABETES MELLITUS WITHOUT COMPLICATIONS Priority: High Current Visit: Yes Qualifiers: Diabetes mellitus complication status: without complication Diabetes mellitus alf insulin use: without alf use Qualified Code(s): E11.9 - Type 2 diabetes mellitus without complications (7) History of nephrolithiasis SNOMED Code(s): 626840555 Code(s): Z87.442 - PERSONAL HISTORY OF URINARY CALCULI Priority: Medium Current Visit: No (8) Postoperative anemia due to acute blood loss SNOMED Code(s): 58125588263655302 Code(s): D62 - ACUTE POSTHEMORRHAGIC ANEMIA Priority: High Current Visit : Yes Problem List Initiated/Reviewed/Updated: Yes My Orders last 24 hours: My Active Orders 08/08/16 09:00 Magnesium Oxide 400 mg PO DAILY Plan: I/P S/P Rt KRISTIN with Dr. Shaikh: POD #4 -Pain managment and DVT prophylax per Ortho -PT/OT -IS/C&DB/RT/nebs PRN -patient is home alone with no assistance; plans SNF/Rehab stay - DC today Postoperative blood loss -EBL intraoperative 350cc; PACU 400cc; since arrival to the floor 300cc -S/P 1unit PRBC - hemodynamically stable -cont to follow am hgb -hgb stable at 10.3 this am Other chronic conditions: HTN- cont home meds of HCTZ, lisinopril HLD- cont statin COPD- stable, on no home meds, supplemental oxygen to keep sats >90%, albuterol nebs PRN and RT tx DM- not on any home meds; A1C will be ordered, Accuchecks AC/HS with SSI coverage ED Hx nephrolithiasis Other: CM/SW for DC planning- plans SNF stay for rehab PT/OT GI prophylax OK from Hospitalist standpoint for dc to SNF/rehab stay today; is medically stable. Recommend eval for MAXIMILIANO as outpatient with PCP due to continued hypoxia, worse at night, snoring. Patient is Full Code status
--- NOTE | 2016-08-08 22:08 | DISCH ---
ADMISSION DATE: 08/04/2016 DISCHARGE DATE: 08/08/2016 CONDITION ON DISCHARGE: Stable. CONSULTATIONS: Dr. Elliott, Medical. FINAL DIAGNOSIS: 1. Severe osteoarthritis, right hip. 2. Right total hip replacement surgery. HOSPITAL COURSE: This was the first orthopedic admission to [facility] for this 75- year-old male, who was scheduled for surgical right total hip replacement on August 04. The patient underwent the surgical procedure on August 04. In the postoperative recovery phase, the patient was placed on the medical surgical floor for stabilization. In the course of his hospital stay, the surgical procedure evaluation of the wound sites found this to be intact. The patient was begun on physical therapy and occupational therapy for a postoperative rehab program. The patient did have some problems with his blood pressure going from hypertension to hypotension which was then managed and stabilized by the medical service. He also had significant hypoxia post surgery which again was aggressively treated by the medical service and the respiratory service. The patient was then stabilized after the hospital stay for approximately 4 days. The surgical wounds were clean, no signs of infection. The patient has successfully gone through his physical therapy and occupational therapy rehab program. The patient was followed through the hospital stay and was found to be stable at the time of discharge. DIET: Healthy diet. CONDITION: Stable. ACTIVITY: Partial weightbearing, status post right total hip replacement. DISCHARGE MEDICATIONS: The patient orthopedic bundy will be kept on Enoxaparin, Lovenox 40 mg daily and also will continue with Percocet for pain control. The patient will also continue on his other medications as outlined by the medical service. FOLLOW-UP: The patient's followup will be 3 weeks in the Orthopedic Clinic. DISPOSITION: [facility] for continued postoperative rehab program status post right total hip surgery. MMODAL /[id number]
--- NOTE | 2016-08-11 08:33 | PN ---
DATE OF SERVICE: 08/07/2016 This is a 96-hour update on Kush Son. The patient underwent a right total hip replacement on 08/04/2016. The patient had delayed discharge, has resolved of hypoxia type problems, and also stabilization of blood pressure. Please refer to the dictated progress note on 08/07/2016. The patient needed to be medically stabilized until he would be [facility]val[facility] and recovery from the right total hip procedure. MMODAL /[id number]
== END 2016-08-08 12:30 | DRG 470 ==
LOC: JD.MS 08-04 06:45
PROVIDERS: ADMIT Specialist; ATTEND Specialist
PROC: 0SR9019 Replacement of Right Hip Joint with Metal Synthetic Substitute, Cemented, Open Approach (ICD-10-PCS; principal; 2016-08-04)
PROC: 0LN Tendons, Release (ICD-10-PCS; 2016-08-04)
PROC: 30233N1 Transfusion of Nonautologous Red Blood Cells into Peripheral Vein, Percutaneous Approach (ICD-10-PCS; 2016-08-04)
DX: M16.11 Unilateral primary osteoarthritis, right hip (principal); I10 Essential (primary) hypertension; E78.5 Hyperlipidemia, unspecified; J44.9 Chronic obstructive pulmonary disease, unspecified; E11.9 Type 2 diabetes mellitus without complications; N52.9 Male erectile dysfunction, unspecified; Z91.040 Latex allergy status; Z79.82 Long term (current) use of aspirin; Z79.899 Other long term (current) drug therapy; E55.9 Vitamin D deficiency, unspecified; Z87.891 Personal history of nicotine dependence; Z87.442 Personal history of urinary calculi; R09.89 Other specified symptoms and signs involving the circulatory and respiratory systems; R09.02 Hypoxemia; D50.0 Iron deficiency anemia secondary to blood loss (chronic)
CPT/HCPCS: 01214; 36415; 36430; 36600; 71020; 71020-26; 73502-26-RT; 73502-RT; 80048; 82803; 82962; 83036; 83735; 85018; 85025; 86803; 86850; 86900; 86901; 86922; 87340; 87449; 94640-76; 94664; 94762; 97110-GP; 97116-GP; 97161-GP; 97165-GO; 97530-GP; 97535-GO; A9270-GY; C1713; C1776; J0690; J1200; J1650; J1885; J2250; J2270; J2405; J2704; J3475; J7040; J7050; J7120; P9016

== ENCOUNTER 2016-12-27 07:46 | Inpatient (IN) | payer MEDICARE, BC ==
--- NOTE | 2016-12-05 20:48 | HP ---
DATE OF ADMISSION: 12/27/16 HISTORY OF PRESENT ILLNESS: This is second orthopedic admission to [facility] for this 76-year- old male, who is being admitted with severe osteoarthritis of left hip, intractable pain, and failed conservative treatment. The patient is being scheduled for left total hip replacement. He has gone through a treatment program all of which have failed. He has significant loss of functional activity with failed treatment and pain scale ranging anywhere from 8-10 with activity levels. At bed rest, the patient has resting pain scale of 3-4. With the failed treatment, the patient was seen through the orthopedic clinic. He is now being scheduled for the left total hip replacement. The procedure has been outlined to him. He understands procedure and has gone through a previous right total hip replacement and understands the procedure and has consented to surgery. ALLERGIES: To latex and seasonal allergies. CURRENT MEDICATIONS: Hydrochlorothiazide, the patient also is on multivitamins, also ramipril and Pepcid, meloxicam, atorvastatin, aspirin, and vitamin D. PAST MEDICAL HISTORY: High blood pressure, increased cholesterol, has a history of kidney stones. PAST SURGICAL HISTORY: Positive. He has had previous tonsil surgery, hernia surgery, right total hip replacement on 08/04/2016, had no surgical complications or problems. He has a negative bleeding history, negative blood clot history. SOCIAL HISTORY: The patient is a nonsmoker at this time. Quit 10 years ago. The patient's alcohol use, he is a nondrinker. PHYSICAL EXAMINATION: GENERAL: Today, reveals a well-developed, well-nourished 76-year-old male, in moderate to severe distress with cane ambulation. HEAD, EYES, EARS, NOSE, AND THROAT: Normocephalic. NECK: Supple. CHEST: Clear. COR: Regular rate. ABDOMEN: Soft. : Intact. MUSCULOSKELETAL: Examination of left hip reveals severe pain with any type of internal or external rotation with loss of motion in both directions. Hip flexion is 90 degrees. Extension is less than 0 degrees with severe pain. RADIOGRAPHIC STUDIES: [id number] shows severe osteoarthritis of the left hip. ASSESSMENT: Severe osteoarthritis of left hip, intractable pain. PLAN: Is for the patient to undergo a left total hip replacement. WILMAR /[id number] VINICIO
--- NOTE | 2016-12-27 07:44 | PCM.PREANE ---
Preanesthetic Assessment - Anesthesia/Transfusion/Family Hx Anesthesia History: Prior Anesthesia Without Reaction Other Type of Anesthesia Reaction Comment: none Family History of Anesthesia Reaction: No Family History of Anesthesia Reaction, Other: none Transfusion History: No Prior Transfusion(s) Intubation History: Unknown (BS ) - Review of Systems General: No Symptoms Pulmonary: No Symptoms (COPD/Quit smokin) Cardiovascular: No Symptoms (HTN), Dyspnea on Exertion, Lightheadedness (on occasion) Gastrointestinal: No Symptoms (History of GERD/ asymptomatic at this time.) Neurological: No Symptoms, Numbness (right upper leg) Other: Reports: None (History of kidney stones. Patient consumes mild amount of alcohol. (1 beer per year)), Diabetes (AM blood sugar), Anxiety - Physical Assessment NPO Status Date: 12/26/16 NPO Status Time: 22:30 Pulse: 64 O2 Sat by Pulse Oximetry: 94 Respiratory Rate: 16 Blood Pressure: 164/80 Temperature: 37.3 C Height: 1.7 m Weight: 90.31 kg ASA Class: 2 Mental Status: Alert & Oriented x3 Airway Class: Mallampati = 2 Dentition: Reports: Normal Dentition (poor dentition noted.), Missing Tooth/ Teeth, Caries Thyro-Mental Finger Breadths: 3 Mouth Opening Finger Breadths: 3 ROM/Head Extension: Full Lungs: Clear to Auscultation, Normal Respiratory Effort, Decreased Breath Sounds Cardiovascular: Regular Rate, Regular Rhythm, No Murmurs - Lab Values: Laboratory Last Values Blood Type O NEGATIVE 12/26/16 14:32 Gel Antibody Screen Negative 12/26/16 14:32 MRSA screen is negative. Platelets= 195,000 All other labs reviewed and noted and within acceptable ranges to proceed with scheduled procedure. - Imaging/EKG Impressions: EKG: NSR rate= 64 CXR: unremarkable - Allergies Allergies/Adverse Reactions: Allergies Allergy/AdvReac Type Severity Reaction Status Date / Time latex Allergy Rash Verified 12/26/16 14:56 - Anesthesia Plan Pre-Op Medication Ordered: None - Acknowledgements Anesthesia Type Planned: Spinal (with MAC) Pt an Appropriate Candidate for the Planned Anesthesia: Yes Alternatives and Risks of Anesthesia Discussed w Pt/Guardian: Yes Pt/Guardian Understands and Agrees with Anesthesia Plan: Yes PreAnesthesia Questionnaire HEENT History: Reports: Impaired Vision, Other (See Below) Other HEENT History: Patient wears reading glasses Cardiovascular History: Reports: High Cholesterol, Hypertension Respiratory History: Reports: COPD, SOB Gastrointestinal History: Reports: None Genitourinary History: Reports: BPH, Renal Calculus, Other (See Below) Other Genitourinary History: erectile dysfunction ACADEMIC ADVISOR History: Reports: None Musculoskeletal History: Reports: Arthritis Neurological History: Reports: None Psychiatric History: Reports: None Endocrine/Metabolic History: Reports: Diabetes, Type II, Vitamin D Deficiency Hematologic History: Reports: None Immunologic History: Reports: None Oncologic (Cancer) History: Reports: None Dermatologic History: Reports: None - Infectious Disease History Infectious Disease History: Reports: None - Past Surgical History Head Surgeries/Procedures: Reports: None HEENT Surgical History: Reports: Cataract Surgery, Naso-Sinus Surgery, Tonsillectomy Cardiovascular Surgical History: Reports: None Respiratory Surgical History: Reports: None GI Surgical History: Reports: Hernia, Inguinal, Other (See Below) Other GI Surgeries/Procedures: inguinal and abdominal hernia repair Female Surgical History: Reports: None Male Surgical History: Reports: None Endocrine Surgical History: Reports: None Neurological Surgical History: Reports: None Musculoskeletal Surgical History: Reports: Hip Replacement Oncologic Surgical History: Reports: None Dermatological Surgical History: Reports: None - Past Imaging History Past Imaging History: Reports: None - SUBSTANCE USE Smoking Status *Q: Former Smoker Recreational Drug Use History: No - HOME MEDS Home Medications: Home Meds Aspirin [Halfprin] 81 mg PO DAILY 08/03/16 [History] B2/Vit A,C & E/Lut/Zeaxanth/Mn [Icaps] 1 tab PO BID 08/03/16 [History] Cholecalciferol (Vitamin D3) [Vitamin D3] 5,000 unit PO DAILY 08/03/16 [History] Hydrochlorothiazide 25 mg PO DAILY 08/03/16 [History] Ramipril 10 mg PO BID 08/03/16 [History] atorvaSTATin Calcium [Atorvastatin Calcium] 20 mg PO DAILY 08/03/16 [History] - CURRENT (IN HOUSE) MEDS Current Meds: Current Medications Discontinued Medications Cefazolin Sodium (Ancef) Confirm Administered Dose 2 gm .ROUTE .STK-MED ONE Stop: 12/27/16 07:28 Fentanyl (Sublimaze) Confirm Administered Dose 100 mcg .ROUTE .STK-MED ONE Stop: 12/27/16 07:29 Lactated Ringer's (Ringers, Lactated) 1,000 mls @ 125 mls/hr IV ASDIRECTED NICKY Lidocaine HCl (Xylocaine-Mpf 1%) Confirm Administered Dose 8 mls @ as directed .ROUTE .STK-MED ONE Stop: 12/27/16 07:28 Lactated Ringer's (Ringers, Lactated) Confirm Administered Dose 2,000 mls @ as directed .ROUTE .STK-MED ONE Stop: 12/27/16 07:28 Ketamine HCl (Ketalar) Confirm Administered Dose 500 mg .ROUTE .STK-MED ONE Stop: 12/27/16 07:29 Lidocaine/Sodium Bicarbonate (Buffered Lidocaine 1% In Ns 8.4%) 0.25 ml IV ONETIME PRN PRN Reason: Prior to IV Start Midazolam HCl (Versed 1 Mg/Ml) Confirm Administered Dose 2 mg .ROUTE .STK-MED ONE Stop: 12/27/16 07:29 Morphine Sulfate (Duramorph Pf) Confirm Administered Dose 10 mg .ROUTE .STK-MED ONE Stop: 12/27/16 07:29 Ondansetron HCl (Zofran) Confirm Administered Dose 4 mg .ROUTE .STK-MED ONE Stop: 12/27/16 07:28 Phenylephrine HCl (Mert-Synephrine) Confirm Administered Dose 10 mg .ROUTE .STK- MED ONE Stop: 12/27/16 07:28 Propofol (Diprivan 20 Ml) Confirm Administered Dose 400 mg .ROUTE .STK-MED ONE Stop: 12/27/16 07:28 Sodium Chloride (Saline Flush) 10 ml FLUSH ASDIRECTED PRN PRN Reason: Keep Vein Open
[~2016-12-27 07:46] MED LIST: Ketamine 500 mg/10 ML MDV ONE; Lactated Ringers 1,000 ML IV SCH; Lactated Ringers 2,000 ML ONE; Lidocaine 1% 8 ML ONE; Lidocaine 1%/Sod Bicarbonate in NS 8.4% 1 ML Syringe IV PRN; Midazolam 1 MG/ML 2 ML SDV ONE; Morphine PF 10 MG/10 ML SDV ONE; Ondansetron 4 MG/2 ML SDV ONE; Phenylephrine 1% 10 MG/ML SDV ONE; Propofol 200 MG/20 ML SDV ONE; Sodium Chloride 0.9% 10 ML Syringe FLUSH PRN; ceFAZolin 1 GM Vial ONE; fentaNYL 100 MCG/2 ML SDV ONE
[2016-12-27] MEDS ORDERED: Albuterol 0.083% 2.5 MG/3 ML Neb Soln NEB ONE (08:29)
[2016-12-27] MEDS ORDERED: Albuterol 0.083% 2.5 MG/3 ML Neb Soln NEB PRN (09:30)
[2016-12-27] MEDS ORDERED: HYDROmorphone 0.5 MG/0.5 ML Syringe IVPUSH PRN (09:30)
[2016-12-27] MEDS ORDERED: diphenhydrAMINE 50 MG/ML SDV IVPUSH PRN (09:30)
[2016-12-27] MEDS ORDERED: ePHEDrine 50 MG/ML SDV IVPUSH PRN (09:30)
[2016-12-27] MEDS ORDERED: fentaNYL 100 MCG/2 ML SDV IVPUSH PRN (09:30)
[2016-12-27] MEDS ORDERED: Phenylephrine 1 MG in Sodium Chloride 0.9% 10 ML IV SCH (09:30)
[2016-12-27] MEDS ORDERED: Ondansetron 4 MG/2 ML SDV IVPUSH PRN (09:30)
[2016-12-27] MEDS ORDERED: ePHEDrine 50 MG/ML SDV ONE (09:34)
[2016-12-27] MEDS: Iodine/Sodium Iodide 2% Tincture 30 ML Bottle ONE ×2 (10:09→10:14)
[2016-12-27] MEDS: Bupivacaine 0.5%/EPINEPHrine 1:200,000 50 ML MDV ONE ×2 (10:10→12:15)
[2016-12-27] MEDS ORDERED: Propofol 200 MG/20 ML SDV ONE ×3 (10:48→11:44)
--- NOTE | 2016-12-27 12:44 | PCM.POSTAN ---
POST ANESTHESIA ASSESSMENT - MENTAL STATUS Mental Status: Alert - VITAL SIGNS Pulse Rate: 63 SaO2: 94 Resp Rate: 21 Blood Pressure: 101/55 Temperature: 36.4 C - RESPIRATORY Respiratory Status: Respiratory Rate WNL, Airway Patent, O2 Saturation Stable, Supplemental Oxygen - CARDIOVASCULAR CV Status: Pulse Rate WNL, Blood Pressure Stable - GASTROINTESTINAL GI Status: No Symptoms - POST OP HYDRATION Hydration Status: Adequate & Stable
[2016-12-27] MEDS ORDERED: HYDROmorphone 0.5 MG/0.5 ML Syringe ONE (12:59)
--- NOTE | 2016-12-27 15:22 | PCM.CONS ---
H&P History of Present Illness - General Date of Service: 12/27/16 Admit Problem/Dx: Admission Diagnosis/Problem Admission Diagnosis/Problem Hip pain Source of Information: Patient, Old Records, RN History Limitations: Reports: No Limitations - History of Present Illness Initial Comments - Free Text/Narative: Kush Son is a 76 yo male pt who presents to the floor today, day 0, after left total hip arthroplasty. Hospital medicine is consulted for post-operative care. Patient caries a history of COPD, HTN, HLD, GERD, chronic right upper leg numbness, kidney stones, BPH, type II diabetes, ED, Vitamin D deficiency, arthritis, and anxiety. Thus far, postoperatively he is resting. Pain is under fair control and patient was given pain med while I was in room. He does have a wound vac and sandbag in place. No nausea/vomiting. He denies SOB, CP, palpitations. Left Hip Pain Score (Numeric/FACES): 9 (After movement of sandbag. ) - Related Data Allergies/Adverse Reactions: Allergies Allergy/AdvReac Type Severity Reaction Status Date / Time latex Allergy Rash Verified 12/26/16 14:56 Home Medications: Home Meds Aspirin [Halfprin] 81 mg PO DAILY 08/03/16 [History] B2/Vit A,C & E/Lut/Zeaxanth/Mn [Icaps] 1 tab PO BID 08/03/16 [History] Cholecalciferol (Vitamin D3) [Vitamin D3] 5,000 unit PO DAILY 08/03/16 [History] Hydrochlorothiazide 25 mg PO DAILY 08/03/16 [History] Ramipril 10 mg PO BID 08/03/16 [History] atorvaSTATin Calcium [Atorvastatin Calcium] 20 mg PO DAILY 08/03/16 [History] Past Medical History HEENT History: Reports: Impaired Vision, Other (See Below) Other HEENT History: Patient wears reading glasses Cardiovascular History: Reports: High Cholesterol, Hypertension Respiratory History: Reports: COPD, SOB Gastrointestinal History: Reports: None Genitourinary History: Reports: BPH, Renal Calculus, Other (See Below) Other Genitourinary History: erectile dysfunction TIGHT COOPER History: Reports: None Musculoskeletal History: Reports: Arthritis Neurological History: Reports: None Psychiatric History: Reports: None Endocrine/Metabolic History: Reports: Diabetes, Type II, Vitamin D Deficiency Hematologic History: Reports: None Immunologic History: Reports: None Oncologic (Cancer) History: Reports: None Dermatologic History: Reports: None - Infectious Disease History Infectious Disease History: Reports: None - Past Surgical History Head Surgeries/Procedures: Reports: None HEENT Surgical History: Reports: Cataract Surgery, Naso-Sinus Surgery, Tonsillectomy Cardiovascular Surgical History: Reports: None Respiratory Surgical History: Reports: None GI Surgical History: Reports: Hernia, Inguinal, Other (See Below) Other GI Surgeries/Procedures: inguinal and abdominal hernia repair Female Surgical History: Reports: None Male Surgical History: Reports: None Endocrine Surgical History: Reports: None Neurological Surgical History: Reports: None Musculoskeletal Surgical History: Reports: Hip Replacement Oncologic Surgical History: Reports: None Dermatological Surgical History: Reports: None - Past Imaging History Past Imaging History: Reports: None Social & Family History - Family History Family Medical History: Noncontributory - Tobacco Use Smoking Status *Q: Former Smoker Years of Tobacco use: 40 Used Tobacco, but Quit: Yes Month Tobacco Last Used: 2003 - Caffeine Use Caffeine Use: Reports: Coffee - Recreational Drug Use Recreational Drug Use: No Drug Use in Last 12 Months: No H&P Review of Systems - Review of Systems: Review Of Systems: See Below General: Reports: No Symptoms HEENT: Reports: No Symptoms Pulmonary: Reports: No Symptoms Cardiovascular: Reports: No Symptoms Gastrointestinal: Reports: No Symptoms Genitourinary: Reports: No Symptoms Musculoskeletal: Reports: Joint Pain (Left hip) Skin: Reports: No Symptoms Psychiatric: Reports: No Symptoms Neurological: Reports: No Symptoms Hematologic/Lymphatic: Reports: No Symptoms Immunologic: Reports: No Symptoms Exam - Exam Exam: See Below - Vital Signs Vital Signs: Last Vital Signs Temp 97.7 F 12/27/16 14:05 Pulse 63 12/27/16 12:44 Resp 16 12/27/16 14:05 BP 106/55 L 12/27/16 14:05 Pulse Ox 97 12/27/16 14:05 Weight: 199 lb 1.6 oz - Exam Quality Assessment: Urinary Catheter, DVT Prophylaxis General: Alert, Oriented, Cooperative HEENT: Conjunctiva Clear, EACs Clear, Hearing Intact, Mucosa Moist & [place], Nares Patent, Normal Nasal Septum, Posterior Pharynx Clear, Pupils Equal, PERRLA Neck: Supple, Trachea Midline. No: JVD Lungs: Clear to Auscultation, Normal Respiratory Effort Cardiovascular: Regular Rate, Regular Rhythm GI/Abdominal Exam: Normal Bowel Sounds, Soft, Non-Tender, No Organomegaly, No Distention, No Abnormal Bruit, No Mass, Pelvis Stable (Male) Exam: Deferred Rectal (Males) Exam: Deferred Back Exam: Normal Inspection, Decreased Range of Motion Extremities: No Pedal Edema, Limited Range of Motion, Other (Bandage on left hip is intact and dry. Wound vac in place. Sandbag in place over groin. Leg wedge in place. ) Peripheral Pulses: 2+: Radial (L), Radial (R), Posterior Tibial (L), Posterior Tibial (R), Dorsalis Pedis (L), Dorsalis Pedis (R) Skin: Warm, Dry, Intact Neurological: Cranial Nerves Intact (grossly) Neuro Extensive - Mental Status: Alert, Oriented x3, Normal Mood/Affect, Normal Cognition, Memory Intact Neuro Extensive - Motor, Sensory, Reflexes: CN II-XII Intact, Abnormal Gait Psychiatric: Alert, Normal Affect, Normal Mood Physical Exam Comments:: Sandbag adjusted and patient begins to have groin pain. He rates it at 10 out of 10. Tramadol per orthopedic team is ordered. Sandbag adjusted and pain subsides however patient still rates it at 9 out of 10. He does not appear to be in any acute distress. - Patient Data Lab Results Last 24 hrs: Laboratory Results - last 24 hr 12/26/16 12/27/16 12/27/16 Range/Units 14:32 08:31 12:58 POC Glucose 97 102 (83-110) mg/dL Blood Type O NEGATIVE Gel Antibody Screen Negative Consult PN Assessment/Plan POD#: 0 Procedures: Procedures AIRWAY INHALATION TREATMENT (08/04/16) ASSAY OF MAGNESIUM (08/04/16) BLOOD GASES ANY COMBINATION (08/04/16) BLOOD TYPING SEROLOGIC ABO (07/13/16) BLOOD TYPING SEROLOGIC RH(D) (07/13/16) CHEST X-RAY 2VW FRONTAL&LATL (08/04/16) COMPLETE CBC W/AUTO DIFF WBC (08/04/16) EVALUATE PT USE OF INHALER (08/04/16) GAIT TRAINING THERAPY (08/04/16) GLUCOSE BLOOD TEST (08/04/16) GLYCOSYLATED HEMOGLOBIN TEST (08/04/16) HEMOGLOBIN (08/04/16) MEASURE BLOOD OXYGEN LEVEL (08/04/16) METABOLIC PANEL TOTAL CA (08/04/16) MR-STAPH DNA AMP PROBE (12/05/16) OFFICE/OUTPATIENT VISIT EST (07/13/16) OT EVAL LOW COMPLEX 30 MIN (08/04/16) PT EVAL LOW COMPLEX 20 MIN (09/02/16) RBC ANTIBODY SCREEN (07/13/16) RMVL DEVITAL TIS 20 CM/< (09/02/16) ROUTINE VENIPUNCTURE (08/04/16) SELF CARE MNGMENT TRAINING (08/04/16) THERAPEUTIC ACTIVITIES (08/04/16) THERAPEUTIC EXERCISES (08/04/16) WITHDRAWAL OF ARTERIAL BLOOD (08/04/16) X-RAY EXAM HIP UNI 2-3 VIEWS (12/05/16) X-RAY EXAM OF PELVIS (12/05/16) (1) COPD (chronic obstructive pulmonary disease) SNOMED Code(s): 77336278 Code(s): J44.9 - CHRONIC OBSTRUCTIVE PULMONARY DISEASE, UNSPECIFIED Priority: Medium Current Visit: Yes Qualifiers: Emphysema type: unspecified (2) HLD (hyperlipidemia) SNOMED Code(s): 44251309 Code(s): E78.5 - HYPERLIPIDEMIA, UNSPECIFIED Priority: Low Current Visit : No Qualifiers: Hyperlipidemia type: unspecified Qualified Code(s): E78.5 - Hyperlipidemia , unspecified (3) HTN (hypertension) SNOMED Code(s): 73123865 Code(s): I10 - ESSENTIAL (PRIMARY) HYPERTENSION Priority: Medium Current Visit: Yes Qualifiers: Hypertension type: essential hypertension Qualified Code(s): I10 - Essential (primary) hypertension (4) Osteoarthritis SNOMED Code(s): 789534562 Code(s): M19.90 - UNSPECIFIED OSTEOARTHRITIS, UNSPECIFIED SITE Priority: High Current Visit: Yes Qualifiers: Osteoarthritis location: hip Osteoarthritis type: primary Laterality: right Qualified Code(s): M16.11 - Unilateral primary osteoarthritis, right hip (5) S/P total hip arthroplasty SNOMED Code(s): 162995628991 Code(s): Z96.649 - PRESENCE OF UNSPECIFIED ARTIFICIAL HIP JOINT Priority: High Current Visit: Yes Qualifiers: Laterality: left Qualified Code(s): Z96.642 - Presence of left artificial hip joint (6) Type 2 diabetes mellitus SNOMED Code(s): 34142979 Code(s): E11.9 - TYPE 2 DIABETES MELLITUS WITHOUT COMPLICATIONS Priority: High Current Visit: Yes Qualifiers: Diabetes mellitus complication status: without complication Diabetes mellitus long term care social worker insulin use: without intermediate use Qualified Code(s): E11.9 - Type 2 diabetes mellitus without complications Problem List Initiated/Reviewed/Updated: Yes My Orders Last 24 Hours: My Active Orders 12/27/16 21:00 Ramipril 10 mg PO BID 12/28/16 09:00 Aspirin [Halfprin] 81 mg PO DAILY Hydrochlorothiazide 25 mg PO DAILY Plan: Acute: Post-Operative Care State - day 0 - He is clinically stable - Continue to monitor for hemodynamic instability S/p Left Total Hip Arthroplasty with left groin adductor tenotomy. - Stable - DVT and Pain Management as per primary team - Bandage is dry and intact. - Wound vac in place Hx/o left Hip Pain - Pain Management as per primary team Hx/o Htn. - Vital signs stable - Resume home BP medications - Continue to monitor Hx/o COPD -Monitor oxygen saturations -RT to treat and monitor Chronic: GERD Chronic right upper leg numbness - stable Kidney stones BPH Type II diabetes - Non-insulin dependant, will monitor blood sugars as ordered. ED Vitamin D deficiency Arthritis Anxiety Plan: He is clinically stable Routine AM labs Continue home meds PT/OT consult IS q2 awake CM/SW for discharge planning He is a full code Thank you for the opportunity to participate in the management of this patient. Requesting Provider: Dr. Shaikh Date Consult Requested: 12/27/16 Reason for Consult: Post-operative care Patient History Reviewed: Yes Admission H&P Reviewed: Yes
[2016-12-27] MEDS: traMADol 50 MG Tab PO PRN ×2 (15:49→21:59)
--- NOTE | 2016-12-27 18:42 | CR ---
Left hip: Two views of the left hip were obtained. Left hip prosthesis is seen. Components are aligned. Small metallic opacity is seen off the distal stem of the prosthesis on the lateral view. Please correlate as to etiology. No acute bony abnormality is seen. Surgical drains and soft tissue air are noted from the surgical procedure. Vascular calcification is seen. Impression: 1. Recently placed left hip prosthesis. 2. Small metallic density off the distal stem of the prosthesis seen on the lateral view. Please correlate as to etiology. 3. No acute bony abnormality is seen. Diagnostic code #2
[2016-12-27] MEDS: ceFAZolin 1 GM in Premix Bag 1 BAG IV SCH ×2 (19:30→19:59)
[2016-12-27] MEDS: Famotidine 20 MG Tab PO SCH (20:01)
[2016-12-27] MEDS: Lisinopril 20 MG Tab PO SCH (20:01)
[2016-12-28] MEDS: ceFAZolin 1 GM in Premix Bag 1 BAG IV SCH ×3 (01:35→14:32)
[2016-12-28] MEDS: Ondansetron 4 MG/2 ML SDV IVPUSH PRN (04:49)
[2016-12-28] MEDS: traMADol 50 MG Tab PO PRN (04:53)
[2016-12-28] MEDS ORDERED: Magnesium Hydroxide 400 MG/5 ML Susp 30 ML Cup PO PRN (07:28)
[2016-12-28] MEDS ORDERED: Albuterol/Ipratropium 3.0-0.5 MG/3 ML Neb Soln NEB PRN (07:28)
--- NOTE | 2016-12-28 07:36 | PCM.CONSN ---
- General Info Date of Service: 12/28/16 Admission Dx/Problem (Free Text): Admission Diagnosis/Problem Admission Diagnosis/Problem Hip pain POD #1 Lt KRISTIN Pain controlled, no n/v. VSS. Still on supplemental oxygen. Working with therapies. Plans for likely SNF rehab stay at [place]. Functional Status: Reports: Pain Controlled, Tolerating Diet, Ambulating, Urinating, Incentive Spirometry. Denies: New Symptoms - Review of Systems General: Reports: No Symptoms HEENT: Reports: No Symptoms Pulmonary: Reports: No Symptoms Cardiovascular: Reports: No Symptoms Gastrointestinal: Reports: No Symptoms Genitourinary: Reports: No Symptoms Musculoskeletal: Reports: Leg Pain Skin: Reports: No Symptoms Neurological: Reports: No Symptoms Psychiatric: Reports: No Symptoms - Patient Data Vitals - Most Recent: Last Vital Signs Temp 98.2 F 12/28/16 03:29 Pulse 59 L 12/28/16 03:29 Resp 14 12/28/16 03:29 BP 105/59 L 12/28/16 03:29 Pulse Ox 95 12/28/16 03:29 Weight - Most Recent: 204 lb 8 oz I&O - Last 24 Hours: Intake & Output 12/27/16 12/28/16 12/28/16 22:59 06:59 14:59 Intake Total 400 150 Output Total 450 650 Balance -50 -500 Lab Results Last 24 Hours: Laboratory Results - last 24 hr 12/27/16 12/27/16 12/27/16 Range/Units 08:31 12:58 17:57 WBC (4.23-9.07) K/mm3 RBC (4.63-6.08) M/mm3 Hgb (13.7-17.5) gm/L Hct (40.1-51.0) % MCV (79.0-92.2) fl MCH (25.7-32.2) pg MCHC (32.2-35.5) g/dl RDW Std Deviation (35.1-43.9) fL Plt Count (163-337) K/mm3 MPV (9.4-12.3) fl Neut % (Auto) (34.0-67.9) % Lymph % (Auto) (21.8-53.1) % [place] % (Auto) (5.3-12.2) % Eos % (Auto) (0.8-7.0) Baso % (Auto) (0.1-1.2) % Neut # (Auto) (1.78-5.38) K/mm3 Lymph # (Auto) (1.32-3.57) K/mm3 [place] # (Auto) (0.30-0.82) K/mm3 Eos # (Auto) (0.04-0.54) K/mm3 Baso # (Auto) (0.01-0.08) K/mm3 Manual Slide Review Sodium (136-145) mEq/L Potassium (3.5-5.1) mEq/L Chloride (98-107) mEq/L Carbon Dioxide (21-32) mEq/L Anion Gap (5-15) BUN (7-18) mg/dL Creatinine (0.7-1.3) mg/dL Est Cr Clr Drug Dosing mL/min Estimated GFR (MDRD) (>60) mL/min BUN/Creatinine Ratio (14-18) Glucose (83-115) mg/dL POC Glucose 97 102 90 (83-110) mg/dL Calcium (8.5-10.1) mg/dL Magnesium (1.8-2.4) mg/dl 12/27/16 12/28/16 12/28/16 Range/Units 22:13 05:55 05:55 WBC 9.68 H (4.23-9.07) K/mm3 RBC 3.59 L (4.63-6.08) M/mm3 Hgb 10.4 L (13.7-17.5) gm/L Hct 32.4 L (40.1-51.0) % MCV 90.3 (79.0-92.2) fl MCH 29.0 (25.7-32.2) pg MCHC 32.1 L (32.2-35.5) g/dl RDW Std Deviation 45.1 H (35.1-43.9) fL Plt Count 200 (163-337) K/mm3 MPV 10.3 (9.4-12.3) fl Neut % (Auto) 79.9 H (34.0-67.9) % Lymph % (Auto) 6.8 L (21.8-53.1) % [place] % (Auto) 12.7 H (5.3-12.2) % Eos % (Auto) 0.1 L (0.8-7.0) Baso % (Auto) 0.3 (0.1-1.2) % Neut # (Auto) 7.73 H (1.78-5.38) K/mm3 Lymph # (Auto) 0.66 L (1.32-3.57) K/mm3 [place] # (Auto) 1.23 H (0.30-0.82) K/mm3 Eos # (Auto) 0.01 L (0.04-0.54) K/mm3 Baso # (Auto) 0.03 (0.01-0.08) K/mm3 Manual Slide Review Abnormal smear Sodium (136-145) mEq/L Potassium (3.5-5.1) mEq/L Chloride (98-107) mEq/L Carbon Dioxide (21-32) mEq/L Anion Gap (5-15) BUN (7-18) mg/dL Creatinine (0.7-1.3) mg/dL Est Cr Clr Drug Dosing mL/min Estimated GFR (MDRD) (>60) mL/min BUN/Creatinine Ratio (14-18) Glucose (83-115) mg/dL POC Glucose 106 (83-110) mg/dL Calcium (8.5-10.1) mg/dL Magnesium 1.7 L (1.8-2.4) mg/dl 12/28/16 12/28/16 Range/Units 05:55 06:19 WBC (4.23-9.07) K/mm3 RBC (4.63-6.08) M/mm3 Hgb (13.7-17.5) gm/L Hct (40.1-51.0) % MCV (79.0-92.2) fl MCH (25.7-32.2) pg MCHC (32.2-35.5) g/dl RDW Std Deviation (35.1-43.9) fL Plt Count (163-337) K/mm3 MPV (9.4-12.3) fl Neut % (Auto) (34.0-67.9) % Lymph % (Auto) (21.8-53.1) % [place] % (Auto) (5.3-12.2) % Eos % (Auto) (0.8-7.0) Baso % (Auto) (0.1-1.2) % Neut # (Auto) (1.78-5.38) K/mm3 Lymph # (Auto) (1.32-3.57) K/mm3 [place] # (Auto) (0.30-0.82) K/mm3 Eos # (Auto) (0.04-0.54) K/mm3 Baso # (Auto) (0.01-0.08) K/mm3 Manual Slide Review Sodium 137 (136-145) mEq/L Potassium 4.4 (3.5-5.1) mEq/L Chloride 100 (98-107) mEq/L Carbon Dioxide 33 H (21-32) mEq/L Anion Gap 8.4 (5-15) BUN 16 (7-18) mg/dL Creatinine 0.6 L (0.7-1.3) mg/dL Est Cr Clr Drug Dosing 100.99 mL/min Estimated GFR (MDRD) > 60 (>60) mL/min BUN/Creatinine Ratio 26.7 H (14-18) Glucose 142 H (83-115) mg/dL POC Glucose 123 H (83-110) mg/dL Calcium 8.2 L (8.5-10.1) mg/dL Magnesium (1.8-2.4) mg/dl Med Orders - Current: Current Medications Albuterol/Ipratropium (Duoneb 3.0-0.5 Mg/3 Ml) 3 ml NEB Q6HRRT PRN PRN Reason: wheezing/SOB/cough Aspirin (Halfprin) 81 mg PO DAILY [facility] Cyclobenzaprine HCl (Flexeril) 10 - 20 mg PO Q8H PRN PRN Reason: Muscle Spasm Docusate Sodium (Colace) 100 mg PO BID [facility] Enoxaparin Sodium (Lovenox) 40 mg SUBCUT DAILY [facility] Famotidine (Pepcid) 20 mg PO BID [facility] Last Admin: 12/27/16 20:01 Dose: 20 mg Hydrochlorothiazide (Hydrochlorothiazide) 25 mg PO DAILY [facility] Cefazolin Sodium/Dextrose 1 gm (/ Premix) 50 mls @ 200 mls/hr IV Q6H [facility] Last Admin: 12/28/16 06:59 Dose: 200 mls/hr Lisinopril (Prinivil) 20 mg PO BID [facility] Last Admin: 12/27/16 20:01 Dose: 20 mg Magnesium Hydroxide (Milk Of Magnesia) 30 ml PO BID PRN PRN Reason: Constipation Non-Formulary Medication (Atorvastatin) 20 mg PO DAILY NICKY Non-Formulary Medication (B2/Vit A,C & E/Lut/Zeaxanth/Mn [Icaps]) 1 tab PO BID NICKY Non-Formulary Medication (Cholecalciferol (Vitamin D3) [Vitamin D3]) 5,000 unit PO DAILY NICKY Ondansetron HCl (Zofran) 4 mg IVPUSH Q4H PRN PRN Reason: Nausea/Vomiting Last Admin: 12/28/16 04:49 Dose: 4 mg Oxycodone/Acetaminophen (Percocet 325-5 Mg) 1 tab PO Q4H PRN PRN Reason: Pain Tramadol HCl (Ultram) 50 mg PO Q6H PRN PRN Reason: Pain Last Admin: 12/28/16 04:53 Dose: 50 mg Discontinued Medications Albuterol (Proventil Neb Soln) 2.5 mg NEB ONETIME ONE Stop: 12/27/16 08:30 Last Admin: 12/27/16 08:36 Dose: 2.5 mg Albuterol (Proventil Neb Soln) 2.5 mg NEB ONETIME PRN PRN Reason: Improve ventilation Stop: 12/27/16 16:00 Bupivacaine HCl/Epinephrine Bitart (Marcaine 0.5%/Epinephrine 1:200,000) Confirm Administered Dose 50 ml .ROUTE .STK-MED ONE Stop: 12/27/16 07:43 Last Admin: 12/27/16 12:15 Dose: 20 ml Cefazolin Sodium (Ancef) Confirm Administered Dose 2 gm .ROUTE .STK-MED ONE Stop: 12/27/16 07:28 Diphenhydramine HCl (Benadryl) 25 mg IVPUSH Q6H PRN PRN Reason: pruritis Stop: 12/27/16 18:00 Ephedrine Sulfate (Ephedrine Sulfate) Confirm Administered Dose 50 mg .ROUTE .STK-MED ONE Stop: 12/27/16 09:35 Ephedrine Sulfate (Ephedrine Sulfate) 5 mg IVPUSH ASDIRECTED PRN PRN Reason: Hypotension Stop: 12/27/16 18:00 Fentanyl (Sublimaze) Confirm Administered Dose 100 mcg .ROUTE .STK-MED ONE Stop: 12/27/16 07:29 Fentanyl (Sublimaze) 50 mcg IVPUSH Q5M PRN PRN Reason: Pain Stop: 12/27/16 09:31 Hydromorphone HCl (Dilaudid) 0.5 mg IVPUSH Q15M PRN PRN Reason: severe pain Stop: 12/27/16 09:31 Last Admin: 12/27/16 13:06 Dose: 0.5 mg Hydromorphone HCl (Dilaudid) Confirm Administered Dose 0.5 mg .ROUTE .STK-MED ONE Stop: 12/27/16 13:00 Last Admin: 12/27/16 23:26 Dose: Not Given Lactated Ringer's (Ringers, Lactated) 1,000 mls @ 125 mls/hr IV ASDIRECTED NICKY Last Admin: 12/27/16 08:25 Dose: 125 mls/hr Lidocaine HCl (Xylocaine-Mpf 1%) Confirm Administered Dose 8 mls @ as directed .ROUTE .STK-MED ONE Stop: 12/27/16 07:28 Lactated Ringer's (Ringers, Lactated) Confirm Administered Dose 2,000 mls @ as directed .ROUTE .STK-MED ONE Stop: 12/27/16 07:28 Phenylephrine HCl 1 mg/ Sodium (Chloride) 10.1 mls @ 1 mls/sec IV TITRATE NICKY PRN Reason: Protocol Stop: 12/27/16 18:00 Iodine (Iodine 2% Mild Tincture) Confirm Administered Dose 30 ml .ROUTE .STK- MED ONE Stop: 12/27/16 07:43 Last Admin: 12/27/16 10:14 Dose: 6 ml Ketamine HCl (Ketalar) Confirm Administered Dose 500 mg .ROUTE .STK-MED ONE Stop: 12/27/16 07:29 Lidocaine/Sodium Bicarbonate (Buffered Lidocaine 1% In Ns 8.4%) 0.25 ml IV ONETIME PRN PRN Reason: Prior to IV Start Last Admin: 12/27/16 08:24 Dose: 0.25 ml Midazolam HCl (Versed 1 Mg/Ml) Confirm Administered Dose 2 mg .ROUTE .STK-MED ONE Stop: 12/27/16 07:29 Morphine Sulfate (Duramorph Pf) Confirm Administered Dose 10 mg .ROUTE .STK-MED ONE Stop: 12/27/16 07:29 Ondansetron HCl (Zofran) Confirm Administered Dose 4 mg .ROUTE .STK-MED ONE Stop: 12/27/16 07:28 Ondansetron HCl (Zofran) 4 mg IVPUSH ONETIME PRN PRN Reason: Nausea/Vomiting Stop: 12/27/16 18:00 Phenylephrine HCl (Mert-Synephrine) Confirm Administered Dose 10 mg .ROUTE .STK- MED ONE Stop: 12/27/16 07:28 Propofol (Diprivan 20 Ml) Confirm Administered Dose 400 mg .ROUTE .STK-MED ONE Stop: 12/27/16 07:28 Propofol (Diprivan 20 Ml) Confirm Administered Dose 200 mg .ROUTE .STK-MED ONE Stop: 12/27/16 10:49 Propofol (Diprivan 20 Ml) Confirm Administered Dose 200 mg .ROUTE .STK-MED ONE Stop: 12/27/16 11:19 Propofol (Diprivan 20 Ml) Confirm Administered Dose 200 mg .ROUTE .STK-MED ONE Stop: 12/27/16 11:45 Sodium Chloride (Saline Flush) 10 ml FLUSH ASDIRECTED PRN PRN Reason: Keep Vein Open - Exam Quality Assessment: Supplemental Oxygen, DVT Prophylaxis General: Alert, Oriented, Cooperative, No Acute Distress HEENT: Pupils Equal, EOMI, Mucous Membr. Moist/[place] Neck: Supple Lungs: Clear to Auscultation, Normal Respiratory Effort, Decreased Breath Sounds (bases) Cardiovascular: Regular Rate, Regular Rhythm GI/Abdominal Exam: Normal Bowel Sounds, Soft, Non-Tender (Male) Exam: Deferred Extremities: Other (teds/SCD's) Peripheral Pulses: 2+: Dorsalis Pedis (L), Dorsalis Pedis (R) Skin: Warm, Dry Wound/Incisions: Dressing Dry and Intact (lt hip) Neurological: No New Focal Deficit Psy/Mental Status: Alert, Normal Affect, Normal Mood Consult PN Assessment/Plan POD#: 1 Procedures: Procedures AIRWAY INHALATION TREATMENT (08/04/16) ASSAY OF MAGNESIUM (08/04/16) BLOOD GASES ANY COMBINATION (08/04/16) BLOOD TYPING SEROLOGIC ABO (07/13/16) BLOOD TYPING SEROLOGIC RH(D) (07/13/16) CHEST X-RAY 2VW FRONTAL&LATL (08/04/16) COMPLETE CBC W/AUTO DIFF WBC (08/04/16) EVALUATE PT USE OF INHALER (08/04/16) GAIT TRAINING THERAPY (08/04/16) GLUCOSE BLOOD TEST (08/04/16) GLYCOSYLATED HEMOGLOBIN TEST (08/04/16) HEMOGLOBIN (08/04/16) MEASURE BLOOD OXYGEN LEVEL (08/04/16) METABOLIC PANEL TOTAL CA (08/04/16) MR-STAPH DNA AMP PROBE (12/05/16) OFFICE/OUTPATIENT VISIT EST (07/13/16) OT EVAL LOW COMPLEX 30 MIN (08/04/16) PT EVAL LOW COMPLEX 20 MIN (09/02/16) RBC ANTIBODY SCREEN (07/13/16) RMVL DEVITAL TIS 20 CM/< (09/02/16) ROUTINE VENIPUNCTURE (08/04/16) SELF CARE MNGMENT TRAINING (08/04/16) THERAPEUTIC ACTIVITIES (08/04/16) THERAPEUTIC EXERCISES (08/04/16) WITHDRAWAL OF ARTERIAL BLOOD (08/04/16) X-RAY EXAM HIP UNI 2-3 VIEWS (12/05/16) X-RAY EXAM OF PELVIS (12/05/16) (1) S/P total hip arthroplasty SNOMED Code(s): 519027532989 Code(s): Z96.649 - PRESENCE OF UNSPECIFIED ARTIFICIAL HIP JOINT Priority: High Current Visit: Yes Qualifiers: Laterality: left Qualified Code(s): Z96.642 - Presence of left artificial hip joint (2) Osteoarthritis SNOMED Code(s): 116490180 Code(s): M19.90 - UNSPECIFIED OSTEOARTHRITIS, UNSPECIFIED SITE Priority: High Current Visit: Yes Qualifiers: Osteoarthritis location: hip Osteoarthritis type: primary Laterality: right Qualified Code(s): M16.11 - Unilateral primary osteoarthritis, right hip (3) HTN (hypertension) SNOMED Code(s): 84181487 Code(s): I10 - ESSENTIAL (PRIMARY) HYPERTENSION Priority: Medium Current Visit: Yes Qualifiers: Hypertension type: essential hypertension Qualified Code(s): I10 - Essential (primary) hypertension (4) HLD (hyperlipidemia) SNOMED Code(s): 55599115 Code(s): E78.5 - HYPERLIPIDEMIA, UNSPECIFIED Priority: Low Current Visit : No Qualifiers: Hyperlipidemia type: unspecified Qualified Code(s): E78.5 - Hyperlipidemia , unspecified (5) COPD (chronic obstructive pulmonary disease) SNOMED Code(s): 46277704 Code(s): J44.9 - CHRONIC OBSTRUCTIVE PULMONARY DISEASE, UNSPECIFIED Priority: Medium Current Visit: Yes Qualifiers: Emphysema type: unspecified (6) Type 2 diabetes mellitus SNOMED Code(s): 06412896 Code(s): E11.9 - TYPE 2 DIABETES MELLITUS WITHOUT COMPLICATIONS Priority: Medium Current Visit: Yes Qualifiers: Diabetes mellitus complication status: without complication 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 mellitus middle or intermediate school principal insulin use: without shelter use Qualified Code(s): E11.9 - Type 2 diabetes mellitus without complications (7) Postoperative anemia due to acute blood loss SNOMED Code(s): 88115813216929659 Code(s): D62 - ACUTE POSTHEMORRHAGIC ANEMIA Priority: High Current Visit : Yes Problem List Initiated/Reviewed/Updated: Yes My Orders Last 24 Hours: My Active Orders 12/27/16 12:59 Antiembolic Devices [RC] QSHIFT RT Incentive Spirometry [RC] Q2HWA Antiembolic Hose [OM.PC] Routine Sequential Compression Device [OM.PC] Routine 12/27/16 13:00 Turn, Cough, Deep Breathe [RC] Q2HWA 12/27/16 13:09 OT Evaluation and Treatment [CONS] Routine PT Evaluation and Treatment [CONS] Routine CM Case Management Follow Up [CM] Routine CM Social Work Follow Up [CM] Routine 12/27/16 13:10 Accu Check [Blood Glucose Check, Bedside] [RC] QIDACANDBED 12/27/16 21:00 Famotidine [Pepcid] 20 mg PO BID 12/28/16 07:26 Acetaminophen/oxyCODONE [Percocet 325-5 MG] 1 tab PO Q4H PRN 12/28/16 07:28 RT Aerosol Therapy [RC] ASDIRECTED Albuterol/Ipratropium [DuoNeb 3.0-0.5 MG/3 ML] 3 ml NEB Q6HRRT PRN Magnesium Hydroxide [Milk of Magnesia] 30 ml PO BID PRN 12/28/16 07:30 Docusate Sodium [Colace] 100 mg PO BID 12/28/16 09:00 B2/Vit A,C & E/Lut/Zeaxanth/Mn [Icaps] 1 tab PO BID Cholecalciferol (Vitamin D3) [Vitamin D3] 5,000 unit PO DAILY Enoxaparin [Lovenox] 40 mg SUBCUT DAILY atorvaSTATin 20 mg PO DAILY 12/29/16 05:11 MAGNESIUM [CHEM] AM 12/29/16 12:57 BASIC METABOLIC PANEL,BMP [CHEM] DAILY CBC WITH AUTO DIFF [HEME] DAILY 12/30/16 05:11 MAGNESIUM [CHEM] AM 12/30/16 12:57 BASIC METABOLIC PANEL,BMP [CHEM] DAILY CBC WITH AUTO DIFF [HEME] DAILY 12/31/16 05:11 MAGNESIUM [CHEM] AM 12/31/16 12:57 BASIC METABOLIC PANEL,BMP [CHEM] DAILY CBC WITH AUTO DIFF [HEME] DAILY Plan: I/P: S/P Lt KRISTIN with Dr. Shaikh; POD #1 -Pain management and DVT prophylax -PT/OT -RT/IS -Hgb 10.4 today, start oral iron supplementation Chronic conditions HTN- stable, home meds DM- stable, cont accuchecks HLD- cont home meds COPD- on 2L/NC now, cont to try to wean, RT to assess, cont to work on IS. Other: GI prophylax CM/SW for assist with DC planning- likely SNF stay at [facility]. He is doing well thus far. Stable, VSS. Pain controlled. Patient is Full Code status.
--- NOTE | 2016-12-28 08:51 | OR ---
DATE OF OPERATION: 12/27/2016 SURGEON: Fadi Shaikh MD PREOPERATIVE DIAGNOSIS: Severe osteoarthritis, left hip and intractable pain. POSTOPERATIVE DIAGNOSIS: Severe osteoarthritis, left hip and intractable pain. ANESTHESIA: Spinal sedation. OPERATION PERFORMED: 1. Left hip total hip replacement with DePuy and Air, 15 mm stem and 58 mm cup. 2. Percutaneous adductor tenotomy, left hip. DESCRIPTION OF PROCEDURE: The patient was taken to the operative room in a supine position and was placed under a light sedation with a spinal anesthesia. Once the patient had adequate anesthesia, the patient was then placed on the operating table and positioned in the right lateral decubitus position for operation on the left hip. After proper positioning, the operation proceeded with prepping and draping the left hip by standard technique for a total hip replacement. Once that was completed, the operation proceeded with a mini oblique incision being placed across the superior portion of the greater trochanter with anterior-posterior angulation of 30 degrees, penetrating through the skin and subcutaneous tissues. The fascia chanell was identified and incised in length with the femur and going up into the gluteus robyn minimally. This afforded access to the gluteus minimus. Once that access was obtained, a Charnley retractor was placed into the wound area. The gluteus medius was then split anterior 1/3rd and then the gluteus minimus deep to the medius was then incised longitudinally with its fibers down to the area of the approach into the gluteus medius, and then the incision was then carried onto the greater trochanter. The gluteus medius and minimus were then reflected off the anterior portion of the greater trochanter by sharp dissection creating a flap of muscle tissue for reattachment. This exposed the joint capsule. A periosteal elevator was then used to elevate the muscular tissues off the joint capsule on both sides. A capsulectomy was then carried out and the operation proceeded with dislocation of the hip by the femoral guides for cutting the femoral neck was applied. The femoral neck was then cut. The femoral head was then removed, which showed severe osteoarthritis and significant deformity. Once the head was removed, the debridement was then carried out around the remainder portion of the acetabulum with the glenoid labrum removed, and then the operation proceeded with rongeuring of the soft tissues off the fovea area inside the joint. The standard instruments were then used to open and approach the acetabulum. Reaming was then carried out to a 57 size mm reamer for insertion of a 58 mm cup. Once that was completed, the generalized trial was evaluated and the acetabular cup was then inserted with 45 degrees abduction and 20 degrees anteversion. This was seated firmly into the previously reamed acetabulum, it created a nice tight fit. No movement was noted with draw of pressure. Operation then proceeded with a trial cup being inserted into the permanent cup and then the operation proceeded to the femoral shaft area. The left leg was then draped into the side pocket and approach to the femoral neck was then carried out after the standard retractors were in place. The femoral neck and shaft area were then reamed and then broached with insertion of the 15 mm broach. Once that was in place, a trial prosthesis of the femoral neck and head were then tried. It was opted to go with the longer type neck offset of 8.5 mm due to pistoning of the leg. Once the fit was then obtained, the operation proceeded with removal of the trial cup and also the femoral stem, and then the operation proceeded with irrigation of the wound area with the surge lavage along with iodine solutions. This was carried out all through the procedure. All bleeding was controlled with electrocautery. With the trial cup removed from the acetabulum, the permanent cup with the 10 degree lip was applied, placing the 10 degree lip in a more medial anterior type position. Once that was in place, the operation then proceeded with placement of the femoral stem. This was impacted for a tight fit and then the 8.5 mm offset femoral neck and head were applied creating the final total hip replacement. Once that was in place, the operation then proceeded with reduction of the hip into the socket. It was checked with pistoning. There was minimal movement. The hip was then went through a full abduction with no evidence of instability and full adduction with no evidence of instability. The operation proceeded with final irrigation of the wound area deep. Hemovacs were inserted. The gluteus minimus and medius were then reattached to the greater trochanter with interrupted #5 FiberWire. The interval of the gluteus medius was then closed with #1 Vicryl. The operation proceeded with closure of the fascia chanell and gluteus robyn with #1 Vicryl interrupted and then the subcutaneous tissue was closed with #1 Vicryl and 2-0 Vicryl and skin tom. With Hemovac in place, the operation then proceeded with evaluation of the replacement for a possible adductor tenotomy. Dressings were applied and then the patient was shifted to the supine position. The leg itself could not be moved more than 10 degrees from neutral position whereas the right hip was moved easily 30 degrees. A percutaneous adductor tenotomy was carried out using a Betadine prep in the groin area. #11 blade to incise the adductor tendon, and on releasing it, the movement was then obtained to approximately 25-30 degrees. The operation proceeded with pressure dressing being applied and continuation of the standard dressings. Once all was in place, the operation proceeded then with transfer the patient from the operating table to the bed with abductor pillow. He tolerated the whole procedure well, left the operating room in stable condition to his room for recovery. ESTIMATED BLOOD LOSS: MMODAL /[id number]
[2016-12-28] MEDS: Docusate Sodium 100 MG Cap PO SCH ×3 (09:39→21:03)
[2016-12-28] MEDS: Lisinopril 20 MG Tab PO SCH ×2 (09:40→22:45)
[2016-12-28] MEDS: Hydrochlorothiazide 25 MG Tab PO SCH (09:40)
[2016-12-28] MEDS: Multivitamins with Minerals/Folic Acid/Lutein/Zeaxanth Tab PO SCH ×2 (09:40→21:02)
[2016-12-28] MEDS: Acetaminophen/oxyCODONE 325-5 MG Tab PO PRN ×2 (09:40→16:06)
[2016-12-28] MEDS: Ferrous Sulfate 325 MG Tab PO SCH (09:41)
[2016-12-28] MEDS: Famotidine 20 MG Tab PO SCH ×2 (09:41→21:03)
[2016-12-28] MEDS: Aspirin 81 MG Tab.EC PO SCH (09:41)
[2016-12-28] MEDS: Enoxaparin 40 MG/0.4 ML Syringe SUBCUT SCH (09:41)
[2016-12-28] MEDS: Magnesium Oxide 400 MG Tab PO SCH (14:32)
[2016-12-28] MEDS: Cyclobenzaprine 10 MG Tab PO PRN (16:38)
[2016-12-28] MEDS: Cholecalciferol (Vitamin D3) 1,000 Unit Tab PO SCH (21:02)
[2016-12-28] MEDS: Simvastatin 20 MG Tab PO SCH (21:03)
[2016-12-29] MEDS: Acetaminophen/oxyCODONE 325-5 MG Tab PO PRN ×2 (04:54→22:06)
[2016-12-29] MEDS: Ferrous Sulfate 325 MG Tab PO SCH (06:10)
[2016-12-29] MEDS ORDERED: Docusate Sodium 100 MG Cap PO PRN (06:48)
--- NOTE | 2016-12-29 06:53 | PCM.CONSN ---
- General Info Date of Service: 12/29/16 Admission Dx/Problem (Free Text): Admission Diagnosis/Problem Admission Diagnosis/Problem Hip pain POD #2 Lt KRISTIN Pain controlled, no n/v. VSS. Still on supplemental oxygen but has been weaned to 1L. Working with therapies. Plans for likely SNF rehab stay at [place]. Functional Status: Reports: Pain Controlled, Tolerating Diet, Ambulating, Urinating, Incentive Spirometry. Denies: New Symptoms - Review of Systems General: Reports: No Symptoms HEENT: Reports: No Symptoms Pulmonary: Reports: No Symptoms. Denies: Shortness of Breath, Pleuritic Chest Pain, Cough Cardiovascular: Reports: No Symptoms. Denies: Chest Pain, Palpitations Gastrointestinal: Reports: No Symptoms. Denies: Abdominal Pain, Nausea, Vomiting Genitourinary: Reports: No Symptoms Musculoskeletal: Reports: Leg Pain Skin: Reports: No Symptoms Neurological: Reports: No Symptoms Psychiatric: Reports: No Symptoms - Patient Data Vitals - Most Recent: Last Vital Signs Temp 98.1 F 12/29/16 03:07 Pulse 63 12/29/16 03:08 Resp 20 12/29/16 03:07 BP 114/45 L 12/29/16 03:07 Pulse Ox 94 L 12/29/16 03:08 Weight - Most Recent: 204 lb 12.8 oz I&O - Last 24 Hours: Intake & Output 12/28/16 12/28/16 12/29/16 14:59 22:59 06:59 Intake Total 0 730 550 Output Total 1050 Balance 0 730 -500 Lab Results Last 24 Hours: Laboratory Results - last 24 hr 12/28/16 12/28/16 12/28/16 Range/Units 05:55 05:55 11:48 WBC (4.23-9.07) K/mm3 RBC (4.63-6.08) M/mm3 Hgb (13.7-17.5) gm/L Hct (40.1-51.0) % MCV (79.0-92.2) fl MCH (25.7-32.2) pg MCHC (32.2-35.5) g/dl RDW Std Deviation (35.1-43.9) fL Plt Count (163-337) K/mm3 MPV (9.4-12.3) fl Neut % (Auto) (34.0-67.9) % Lymph % (Auto) (21.8-53.1) % [place] % (Auto) (5.3-12.2) % Eos % (Auto) (0.8-7.0) Baso % (Auto) (0.1-1.2) % Neut # (Auto) (1.78-5.38) K/mm3 Lymph # (Auto) (1.32-3.57) K/mm3 [place] # (Auto) (0.30-0.82) K/mm3 Eos # (Auto) (0.04-0.54) K/mm3 Baso # (Auto) (0.01-0.08) K/mm3 Manual Slide Review Abnormal smear POC Glucose 124 H (83-110) mg/dL Magnesium 1.7 L (1.8-2.4) mg/dl 12/28/16 12/29/16 12/29/16 Range/Units 20:20 05:33 05:35 WBC 10.26 H (4.23-9.07) K/mm3 RBC 3.29 L (4.63-6.08) M/mm3 Hgb 9.7 L (13.7-17.5) gm/L Hct 29.8 L (40.1-51.0) % MCV 90.6 (79.0-92.2) fl MCH 29.5 (25.7-32.2) pg MCHC 32.6 (32.2-35.5) g/dl RDW Std Deviation 44.6 H (35.1-43.9) fL Plt Count 196 (163-337) K/mm3 MPV 10.6 (9.4-12.3) fl Neut % (Auto) 76.2 H (34.0-67.9) % Lymph % (Auto) 9.6 L (21.8-53.1) % [place] % (Auto) 12.5 H (5.3-12.2) % Eos % (Auto) 1.1 (0.8-7.0) Baso % (Auto) 0.3 (0.1-1.2) % Neut # (Auto) 7.82 H (1.78-5.38) K/mm3 Lymph # (Auto) 0.99 L (1.32-3.57) K/mm3 [place] # (Auto) 1.28 H (0.30-0.82) K/mm3 Eos # (Auto) 0.11 (0.04-0.54) K/mm3 Baso # (Auto) 0.03 (0.01-0.08) K/mm3 Manual Slide Review POC Glucose 100 114 H (83-110) mg/dL Magnesium (1.8-2.4) mg/dl Med Orders - Current: Current Medications Albuterol/Ipratropium (Duoneb 3.0-0.5 Mg/3 Ml) 3 ml NEB Q6HRRT PRN PRN Reason: wheezing/SOB/cough Aspirin (Halfprin) 81 mg PO DAILY [facility] Last Admin: 12/28/16 09:41 Dose: 81 mg Cholecalciferol (Vitamin D3) 5,000 units PO BEDTIME [facility] Last Admin: 12/28/16 21:02 Dose: 5,000 units Cyclobenzaprine HCl (Flexeril) 10 - 20 mg PO Q8H PRN PRN Reason: Muscle Spasm Last Admin: 12/28/16 16:38 Dose: 10 mg Docusate Sodium (Colace) 100 mg PO BID PRN PRN Reason: Constipation Enoxaparin Sodium (Lovenox) 40 mg SUBCUT DAILY [facility] Last Admin: 12/28/16 09:41 Dose: 40 mg Famotidine (Pepcid) 20 mg PO BID [facility] Last Admin: 12/28/16 21:03 Dose: 20 mg Ferrous Sulfate (Ferrous Sulfate) 325 mg PO WITHBREAKFAST [facility] Last Admin: 12/29/16 06:10 Dose: 325 mg Hydrochlorothiazide (Hydrochlorothiazide) 25 mg PO DAILY [facility] Last Admin: 12/28/16 09:40 Dose: 25 mg Lisinopril (Prinivil) 20 mg PO BID [facility] Last Admin: 12/28/16 22:45 Dose: Not Given Magnesium Hydroxide (Milk Of Magnesia) 30 ml PO BID PRN PRN Reason: Constipation Magnesium Oxide (Magnesium Oxide) 400 mg PO DAILY [facility] Last Admin: 12/28/16 14:32 Dose: 400 mg Ondansetron HCl (Zofran) 4 mg IVPUSH Q4H PRN PRN Reason: Nausea/Vomiting Last Admin: 12/28/16 04:49 Dose: 4 mg Oxycodone/Acetaminophen (Percocet 325-5 Mg) 1 tab PO Q4H PRN PRN Reason: Pain Last Admin: 12/29/16 04:54 Dose: 1 tab Simvastatin (Zocor) 20 mg PO BEDTIME [facility] Last Admin: 12/28/16 21:03 Dose: 20 mg Tramadol HCl (Ultram) 50 mg PO Q6H PRN PRN Reason: Pain Last Admin: 12/28/16 04:53 Dose: 50 mg Vit A/Vit C/Vit E/Selen/Cu/Zn/Lutei (Icaps Mv) 1 tab PO BID [facility] Last Admin: 12/28/16 21:02 Dose: 1 tab Discontinued Medications Albuterol (Proventil Neb Soln) 2.5 mg NEB ONETIME ONE Stop: 12/27/16 08:30 Last Admin: 12/27/16 08:36 Dose: 2.5 mg Albuterol (Proventil Neb Soln) 2.5 mg NEB ONETIME PRN PRN Reason: Improve ventilation Stop: 12/27/16 16:00 Bupivacaine HCl/Epinephrine Bitart (Marcaine 0.5%/Epinephrine 1:200,000) Confirm Administered Dose 50 ml .ROUTE .STK-MED ONE Stop: 12/27/16 07:43 Last Admin: 12/27/16 12:15 Dose: 20 ml Cefazolin Sodium (Ancef) Confirm Administered Dose 2 gm .ROUTE .STK-MED ONE Stop: 12/27/16 07:28 Diphenhydramine HCl (Benadryl) 25 mg IVPUSH Q6H PRN PRN Reason: pruritis Stop: 12/27/16 18:00 Docusate Sodium (Colace) 100 mg PO BID [facility] Last Admin: 12/28/16 21:03 Dose: 100 mg Ephedrine Sulfate (Ephedrine Sulfate) Confirm Administered Dose 50 mg .ROUTE .STK-MED ONE Stop: 12/27/16 09:35 Ephedrine Sulfate (Ephedrine Sulfate) 5 mg IVPUSH ASDIRECTED PRN PRN Reason: Hypotension Stop: 12/27/16 18:00 Fentanyl (Sublimaze) Confirm Administered Dose 100 mcg .ROUTE .STK-MED ONE Stop: 12/27/16 07:29 Fentanyl (Sublimaze) 50 mcg IVPUSH Q5M PRN PRN Reason: Pain Stop: 12/27/16 09:31 Hydromorphone HCl (Dilaudid) 0.5 mg IVPUSH Q15M PRN PRN Reason: severe pain Stop: 12/27/16 09:31 Last Admin: 12/27/16 13:06 Dose: 0.5 mg Hydromorphone HCl (Dilaudid) Confirm Administered Dose 0.5 mg .ROUTE .STK-MED ONE Stop: 12/27/16 13:00 Last Admin: 12/27/16 23:26 Dose: Not Given Lactated Ringer's (Ringers, Lactated) 1,000 mls @ 125 mls/hr IV ASDIRECTED [facility] Last Admin: 12/27/16 08:25 Dose: 125 mls/hr Lidocaine HCl (Xylocaine-Mpf 1%) Confirm Administered Dose 8 mls @ as directed .ROUTE .STK-MED ONE Stop: 12/27/16 07:28 Lactated Ringer's (Ringers, Lactated) Confirm Administered Dose 2,000 mls @ as directed .ROUTE .STK-MED ONE Stop: 12/27/16 07:28 Phenylephrine HCl 1 mg/ Sodium (Chloride) 10.1 mls @ 1 mls/sec IV TITRATE [facility] PRN Reason: Protocol Stop: 12/27/16 18:00 Cefazolin Sodium/Dextrose 1 gm (/ Premix) 50 mls @ 200 mls/hr IV Q6H [facility] Last Admin: 12/28/16 14:32 Dose: 200 mls/hr Iodine (Iodine 2% Mild Tincture) Confirm Administered Dose 30 ml .ROUTE .STK- MED ONE Stop: 12/27/16 07:43 Last Admin: 12/27/16 10:14 Dose: 6 ml Ketamine HCl (Ketalar) Confirm Administered Dose 500 mg .ROUTE .STK-MED ONE Stop: 12/27/16 07:29 Lidocaine/Sodium Bicarbonate (Buffered Lidocaine 1% In Ns 8.4%) 0.25 ml IV ONETIME PRN PRN Reason: Prior to IV Start Last Admin: 12/27/16 08:24 Dose: 0.25 ml Midazolam HCl (Versed 1 Mg/Ml) Confirm Administered Dose 2 mg .ROUTE .STK-MED ONE Stop: 12/27/16 07:29 Morphine Sulfate (Duramorph Pf) Confirm Administered Dose 10 mg .ROUTE .STK-MED ONE Stop: 12/27/16 07:29 Ondansetron HCl (Zofran) Confirm Administered Dose 4 mg .ROUTE .STK-MED ONE Stop: 12/27/16 07:28 Ondansetron HCl (Zofran) 4 mg IVPUSH ONETIME PRN PRN Reason: Nausea/Vomiting Stop: 12/27/16 18:00 Phenylephrine HCl (Mert-Synephrine) Confirm Administered Dose 10 mg .ROUTE .STK- MED ONE Stop: 12/27/16 07:28 Propofol (Diprivan 20 Ml) Confirm Administered Dose 400 mg .ROUTE .STK-MED ONE Stop: 12/27/16 07:28 Propofol (Diprivan 20 Ml) Confirm Administered Dose 200 mg .ROUTE .STK-MED ONE Stop: 12/27/16 10:49 Propofol (Diprivan 20 Ml) Confirm Administered Dose 200 mg .ROUTE .STK-MED ONE Stop: 12/27/16 11:19 Propofol (Diprivan 20 Ml) Confirm Administered Dose 200 mg .ROUTE .STK-MED ONE Stop: 12/27/16 11:45 Sodium Chloride (Saline Flush) 10 ml FLUSH ASDIRECTED PRN PRN Reason: Keep Vein Open - Exam Quality Assessment: Supplemental Oxygen, DVT Prophylaxis General: Alert, Oriented, Cooperative, No Acute Distress HEENT: Pupils Equal, EOMI, Mucous Membr. Moist/[place] Neck: Supple Lungs: Clear to Auscultation, Normal Respiratory Effort, Decreased Breath Sounds (bases) Cardiovascular: Regular Rate, Regular Rhythm GI/Abdominal Exam: Normal Bowel Sounds, Soft, Non-Tender (Male) Exam: Deferred Extremities: Normal Inspection, No Pedal Edema, Normal Capillary Refill Peripheral Pulses: 1+: Dorsalis Pedis (L), Dorsalis Pedis (R) Skin: Warm, Dry Wound/Incisions: Dressing Dry and Intact (lt hip) Neurological: No New Focal Deficit Psy/Mental Status: Alert, Normal Affect, Normal Mood Consult PN Assessment/Plan POD#: 2 Procedures: Procedures AIRWAY INHALATION TREATMENT (08/04/16) ASSAY OF MAGNESIUM (08/04/16) BLOOD GASES ANY COMBINATION (08/04/16) BLOOD TYPING SEROLOGIC ABO (07/13/16) BLOOD TYPING SEROLOGIC RH(D) (07/13/16) CHEST X-RAY 2VW FRONTAL&LATL (08/04/16) COMPLETE CBC W/AUTO DIFF WBC (08/04/16) EVALUATE PT USE OF INHALER (08/04/16) GAIT TRAINING THERAPY (08/04/16) GLUCOSE BLOOD TEST (08/04/16) GLYCOSYLATED HEMOGLOBIN TEST (08/04/16) HEMOGLOBIN (08/04/16) MEASURE BLOOD OXYGEN LEVEL (08/04/16) METABOLIC PANEL TOTAL CA (08/04/16) MR-STAPH DNA AMP PROBE (12/05/16) OFFICE/OUTPATIENT VISIT EST (07/13/16) OT EVAL LOW COMPLEX 30 MIN (08/04/16) PT EVAL LOW COMPLEX 20 MIN (09/02/16) RBC ANTIBODY SCREEN (07/13/16) RMVL DEVITAL TIS 20 CM/< (09/02/16) ROUTINE VENIPUNCTURE (08/04/16) SELF CARE MNGMENT TRAINING (08/04/16) THERAPEUTIC ACTIVITIES (08/04/16) THERAPEUTIC EXERCISES (08/04/16) WITHDRAWAL OF ARTERIAL BLOOD (08/04/16) X-RAY EXAM HIP UNI 2-3 VIEWS (12/05/16) X-RAY EXAM OF PELVIS (12/05/16) (1) S/P total hip arthroplasty SNOMED Code(s): 716483720870 Code(s): Z96.649 - PRESENCE OF UNSPECIFIED ARTIFICIAL HIP JOINT Priority: High Current Visit: Yes Qualifiers: Laterality: left Qualified Code(s): Z96.642 - Presence of left artificial hip joint (2) Osteoarthritis SNOMED Code(s): 966616505 Code(s): M19.90 - UNSPECIFIED OSTEOARTHRITIS, UNSPECIFIED SITE Priority: High Current Visit: Yes Qualifiers: Osteoarthritis location: hip Osteoarthritis type: primary Laterality: right Qualified Code(s): M16.11 - Unilateral primary osteoarthritis, right hip (3) HTN (hypertension) SNOMED Code(s): 09237436 Code(s): I10 - ESSENTIAL (PRIMARY) HYPERTENSION Priority: Medium Current Visit: Yes Qualifiers: Hypertension type: essential hypertension Qualified Code(s): I10 - Essential (primary) hypertension (4) HLD (hyperlipidemia) SNOMED Code(s): 70543345 Code(s): E78.5 - HYPERLIPIDEMIA, UNSPECIFIED Priority: Low Current Visit : No Qualifiers: Hyperlipidemia type: unspecified Qualified Code(s): E78.5 - Hyperlipidemia , unspecified (5) COPD (chronic obstructive pulmonary disease) SNOMED Code(s): 30482192 Code(s): J44.9 - CHRONIC OBSTRUCTIVE PULMONARY DISEASE, UNSPECIFIED Priority: Medium Current Visit: Yes Qualifiers: Emphysema type: unspecified (6) Type 2 diabetes mellitus SNOMED Code(s): 33970225 Code(s): E11.9 - TYPE 2 DIABETES MELLITUS WITHOUT COMPLICATIONS Priority: Medium Current Visit: Yes Qualifiers: Diabetes mellitus complication status: without complication Diabetes mellitus predatory animal exterminator insulin use: without assisted use Qualified Code(s): E11.9 - Type 2 diabetes mellitus without complications (7) Postoperative anemia due to acute blood loss SNOMED Code(s): 47692552461768501 Code(s): D62 - ACUTE POSTHEMORRHAGIC ANEMIA Priority: High Current Visit : Yes Problem List Initiated/Reviewed/Updated: Yes My Orders Last 24 Hours: My Active Orders 12/28/16 07:26 Acetaminophen/oxyCODONE [Percocet 325-5 MG] 1 tab PO Q4H PRN 12/28/16 07:28 RT Aerosol Therapy [RC] ASDIRECTED Albuterol/Ipratropium [DuoNeb 3.0-0.5 MG/3 ML] 3 ml NEB Q6HRRT PRN Magnesium Hydroxide [Milk of Magnesia] 30 ml PO BID PRN 12/28/16 07:45 Ferrous Sulfate 325 mg PO WITHBREAKFAST 12/28/16 09:00 Enoxaparin [Lovenox] 40 mg SUBCUT DAILY Multivitamins/Min/FA/Lut/Zeax [ICaps MV] 1 tab PO BID 12/28/16 11:00 Magnesium Oxide 400 mg PO DAILY 12/28/16 21:00 Cholecalciferol (Vitamin D3) [Vitamin D3] 5,000 units PO BEDTIME Simvastatin [Zocor] 20 mg PO BEDTIME 12/28/16 Lunch ADA Diabetic [[place] [employer] Diet] [DIET] 12/29/16 05:33 BASIC METABOLIC PANEL,BMP [CHEM] DAILY CBC WITH AUTO DIFF [HEME] DAILY MAGNESIUM [CHEM] AM 12/29/16 06:48 Docusate Sodium [Colace] 100 mg PO BID PRN 12/29/16 06:49 Blood Glucose Check, Bedside [RC] BIDAC 12/30/16 05:11 MAGNESIUM [CHEM] AM 12/30/16 12:57 BASIC METABOLIC PANEL,BMP [CHEM] DAILY CBC WITH AUTO DIFF [HEME] DAILY 12/31/16 05:11 MAGNESIUM [CHEM] AM 12/31/16 12:57 BASIC METABOLIC PANEL,BMP [CHEM] DAILY CBC WITH AUTO DIFF [HEME] DAILY Plan: I/P: S/P Lt KRISTIN with Dr. Shaikh; POD #2 -Pain management and DVT prophylax -PT/OT -RT/IS -Hgb 9.7 today; stable, has been started on oral iron supplementation Chronic conditions HTN- stable, home meds DM- stable, cont accuchecks HLD- cont home meds COPD- on 2L/NC now, cont to try to wean, RT to assess, cont to work on IS. Other: GI prophylax CM/SW for assist with DC planning- likely SNF stay at [facility] He is doing well thus far. Stable, VSS. Pain controlled. Medically stable for discharge from Hospitalist standpoint. Patient is Full Code status.
[2016-12-29] MEDS: Hydrochlorothiazide 25 MG Tab PO SCH (08:57)
[2016-12-29] MEDS: Aspirin 81 MG Tab.EC PO SCH (08:58)
[2016-12-29] MEDS: Lisinopril 20 MG Tab PO SCH ×2 (08:59→21:58)
[2016-12-29] MEDS: Multivitamins with Minerals/Folic Acid/Lutein/Zeaxanth Tab PO SCH ×2 (08:59→21:58)
[2016-12-29] MEDS: Magnesium Oxide 400 MG Tab PO SCH (09:00)
[2016-12-29] MEDS: Famotidine 20 MG Tab PO SCH ×2 (09:00→21:58)
[2016-12-29] MEDS: Enoxaparin 40 MG/0.4 ML Syringe SUBCUT SCH (09:04)
[2016-12-29] MEDS: Cholecalciferol (Vitamin D3) 1,000 Unit Tab PO SCH (21:58)
[2016-12-29] MEDS: Simvastatin 20 MG Tab PO SCH (21:58)
[2016-12-30] MEDS: Cyclobenzaprine 10 MG Tab PO PRN (02:52)
[2016-12-30] MEDS: Ferrous Sulfate 325 MG Tab PO SCH (06:14)
--- NOTE | 2016-12-30 07:17 | PCM.CONSN ---
- General Info Date of Service: 12/30/16 Admission Dx/Problem (Free Text): Admission Diagnosis/Problem Admission Diagnosis/Problem Hip pain POD #3 Lt KRISTIN Pain controlled, no n/v. VSS. Working with therapies. Plans for DC to SNF rehab stay at [facility] today. Functional Status: Reports: Pain Controlled, Tolerating Diet, Ambulating, Urinating, Incentive Spirometry. Denies: New Symptoms - Review of Systems General: Reports: No Symptoms HEENT: Reports: No Symptoms Pulmonary: Reports: No Symptoms Cardiovascular: Reports: No Symptoms Gastrointestinal: Reports: No Symptoms Genitourinary: Reports: No Symptoms Musculoskeletal: Reports: Leg Pain Skin: Reports: No Symptoms Neurological: Reports: No Symptoms Psychiatric: Reports: No Symptoms - Patient Data Vitals - Most Recent: Last Vital Signs Temp 98.2 F 12/29/16 15:28 Pulse 65 12/29/16 15:28 Resp 16 12/29/16 15:28 BP 136/79 12/29/16 21:58 Pulse Ox 98 12/29/16 15:28 Weight - Most Recent: 203 lb 1.6 oz I&O - Last 24 Hours: Intake & Output 12/29/16 12/30/16 12/30/16 22:59 06:59 14:59 Intake Total 300 900 Output Total 400 1530 Balance -100 -630 Lab Results Last 24 Hours: Laboratory Results - last 24 hr 12/29/16 12/29/16 12/29/16 Range/Units 05:33 05:33 11:44 WBC (4.23-9.07) K/mm3 RBC (4.63-6.08) M/mm3 Hgb (13.7-17.5) gm/L Hct (40.1-51.0) % MCV (79.0-92.2) fl MCH (25.7-32.2) pg MCHC (32.2-35.5) g/dl RDW Std Deviation (35.1-43.9) fL Plt Count (163-337) K/mm3 MPV (9.4-12.3) fl Neut % (Auto) (34.0-67.9) % Lymph % (Auto) (21.8-53.1) % [place] % (Auto) (5.3-12.2) % Eos % (Auto) (0.8-7.0) Baso % (Auto) (0.1-1.2) % Neut # (Auto) (1.78-5.38) K/mm3 Lymph # (Auto) (1.32-3.57) K/mm3 [place] # (Auto) (0.30-0.82) K/mm3 Eos # (Auto) (0.04-0.54) K/mm3 Baso # (Auto) (0.01-0.08) K/mm3 Manual Slide Review Sodium 137 (136-145) mEq/L Potassium 4.1 (3.5-5.1) mEq/L Chloride 102 (98-107) mEq/L Carbon Dioxide 31 (21-32) mEq/L Anion Gap 8.1 (5-15) BUN 23 H (7-18) mg/dL Creatinine 0.9 (0.7-1.3) mg/dL Est Cr Clr Drug Dosing 67.32 mL/min Estimated GFR (MDRD) > 60 (>60) mL/min BUN/Creatinine Ratio 25.6 H (14-18) Glucose 133 H (83-115) mg/dL POC Glucose 129 H (83-110) mg/dL Calcium 8.7 (8.5-10.1) mg/dL Magnesium 1.9 (1.8-2.4) mg/dl 12/29/16 12/30/16 12/30/16 Range/Units 16:16 05:50 05:50 WBC 10.73 H (4.23-9.07) K/mm3 RBC 3.33 L (4.63-6.08) M/mm3 Hgb 9.8 L (13.7-17.5) gm/L Hct 30.2 L (40.1-51.0) % MCV 90.7 (79.0-92.2) fl MCH 29.4 (25.7-32.2) pg MCHC 32.5 (32.2-35.5) g/dl RDW Std Deviation 45.1 H (35.1-43.9) fL Plt Count 208 (163-337) K/mm3 MPV 10.2 (9.4-12.3) fl Neut % (Auto) 73.7 H (34.0-67.9) % Lymph % (Auto) 11.5 L (21.8-53.1) % [place] % (Auto) 12.3 H (5.3-12.2) % Eos % (Auto) 2.1 (0.8-7.0) Baso % (Auto) 0.2 (0.1-1.2) % Neut # (Auto) 7.92 H (1.78-5.38) K/mm3 Lymph # (Auto) 1.23 L (1.32-3.57) K/mm3 [place] # (Auto) 1.32 H (0.30-0.82) K/mm3 Eos # (Auto) 0.22 (0.04-0.54) K/mm3 Baso # (Auto) 0.02 (0.01-0.08) K/mm3 Manual Slide Review Abnormal smear Sodium (136-145) mEq/L Potassium (3.5-5.1) mEq/L Chloride (98-107) mEq/L Carbon Dioxide (21-32) mEq/L Anion Gap (5-15) BUN (7-18) mg/dL Creatinine (0.7-1.3) mg/dL Est Cr Clr Drug Dosing mL/min Estimated GFR (MDRD) (>60) mL/min BUN/Creatinine Ratio (14-18) Glucose (83-115) mg/dL POC Glucose 141 H (83-110) mg/dL Calcium (8.5-10.1) mg/dL Magnesium 1.8 (1.8-2.4) mg/dl 12/30/16 Range/Units 05:50 WBC (4.23-9.07) K/mm3 RBC (4.63-6.08) M/mm3 Hgb (13.7-17.5) gm/L Hct (40.1-51.0) % MCV (79.0-92.2) fl MCH (25.7-32.2) pg MCHC (32.2-35.5) g/dl RDW Std Deviation (35.1-43.9) fL Plt Count (163-337) K/mm3 MPV (9.4-12.3) fl Neut % (Auto) (34.0-67.9) % Lymph % (Auto) (21.8-53.1) % [place] % (Auto) (5.3-12.2) % Eos % (Auto) (0.8-7.0) Baso % (Auto) (0.1-1.2) % Neut # (Auto) (1.78-5.38) K/mm3 Lymph # (Auto) (1.32-3.57) K/mm3 [place] # (Auto) (0.30-0.82) K/mm3 Eos # (Auto) (0.04-0.54) K/mm3 Baso # (Auto) (0.01-0.08) K/mm3 Manual Slide Review Sodium 141 (136-145) mEq/L Potassium 4.0 (3.5-5.1) mEq/L Chloride 104 (98-107) mEq/L Carbon Dioxide 31 (21-32) mEq/L Anion Gap 10.0 (5-15) BUN 20 H (7-18) mg/dL Creatinine 0.6 L (0.7-1.3) mg/dL Est Cr Clr Drug Dosing 100.99 mL/min Estimated GFR (MDRD) > 60 (>60) mL/min BUN/Creatinine Ratio 33.3 H (14-18) Glucose 110 (83-115) mg/dL POC Glucose (83-110) mg/dL Calcium 8.6 (8.5-10.1) mg/dL Magnesium (1.8-2.4) mg/dl Med Orders - Current: Current Medications Albuterol/Ipratropium (Duoneb 3.0-0.5 Mg/3 Ml) 3 ml NEB Q6HRRT PRN PRN Reason: wheezing/SOB/cough Aspirin (Halfprin) 81 mg PO DAILY [facility] [place] Last Admin: 12/29/16 08:58 Dose: 81 mg Cholecalciferol (Vitamin D3) 5,000 units PO BEDTIME [facility] Last Admin: 12/29/16 21:58 Dose: 5,000 units Cyclobenzaprine HCl (Flexeril) 10 - 20 mg PO Q8H PRN PRN Reason: Muscle Spasm Last Admin: 12/30/16 02:52 Dose: 10 mg Docusate Sodium (Colace) 100 mg PO BID PRN PRN Reason: Constipation Last Admin: 12/29/16 08:59 Dose: 100 mg Enoxaparin Sodium (Lovenox) 40 mg SUBCUT DAILY [facility] Last Admin: 12/29/16 09:04 Dose: 40 mg Famotidine (Pepcid) 20 mg PO BID [facility] [place] Last Admin: 12/29/16 21:58 Dose: 20 mg Ferrous Sulfate (Ferrous Sulfate) 325 mg PO WITHBREAKFAST [facility] Last Admin: 12/30/16 06:14 Dose: 325 mg Hydrochlorothiazide (Hydrochlorothiazide) 25 mg PO DAILY [facility] [place] Last Admin: 12/29/16 08:57 Dose: 25 mg Lisinopril (Prinivil) 20 mg PO BID [facility] Last Admin: 12/29/16 21:58 Dose: 20 mg Magnesium Hydroxide (Milk Of Magnesia) 30 ml PO BID PRN PRN Reason: Constipation Magnesium Oxide (Magnesium Oxide) 400 mg PO DAILY [facility] Last Admin: 12/29/16 09:00 Dose: 400 mg Ondansetron HCl (Zofran) 4 mg IVPUSH Q4H PRN PRN Reason: Nausea/Vomiting Last Admin: 12/28/16 04:49 Dose: 4 mg Oxycodone/Acetaminophen (Percocet 325-5 Mg) 1 tab PO Q4H PRN PRN Reason: Pain Last Admin: 12/29/16 22:06 Dose: 1 tab Simvastatin (Zocor) 20 mg PO BEDTIME [facility] [place] Last Admin: 12/29/16 21:58 Dose: 20 mg Tramadol HCl (Ultram) 50 mg PO Q6H PRN PRN Reason: Pain Last Admin: 12/28/16 04:53 Dose: 50 mg Vit A/Vit C/Vit E/Selen/Cu/Zn/Lutei (Icaps Mv) 1 tab PO BID [facility] Last Admin: 12/29/16 21:58 Dose: 1 tab Discontinued Medications Albuterol (Proventil Neb Soln) 2.5 mg NEB ONETIME ONE Stop: 12/27/16 08:30 Last Admin: 12/27/16 08:36 Dose: 2.5 mg Albuterol (Proventil Neb Soln) 2.5 mg NEB ONETIME PRN PRN Reason: Improve ventilation Stop: 12/27/16 16:00 Bupivacaine HCl/Epinephrine Bitart (Marcaine 0.5%/Epinephrine 1:200,000) Confirm Administered Dose 50 ml .ROUTE .STK-MED ONE Stop: 12/27/16 07:43 Last Admin: 12/27/16 12:15 Dose: 20 ml Cefazolin Sodium (Ancef) Confirm Administered Dose 2 gm .ROUTE .STK-MED ONE Stop: 12/27/16 07:28 Diphenhydramine HCl (Benadryl) 25 mg IVPUSH Q6H PRN PRN Reason: pruritis Stop: 12/27/16 18:00 Docusate Sodium (Colace) 100 mg PO BID [facility] [place] Last Admin: 12/28/16 21:03 Dose: 100 mg Ephedrine Sulfate (Ephedrine Sulfate) Confirm Administered Dose 50 mg .ROUTE .STK-MED ONE Stop: 12/27/16 09:35 Ephedrine Sulfate (Ephedrine Sulfate) 5 mg IVPUSH ASDIRECTED PRN PRN Reason: Hypotension Stop: 12/27/16 18:00 Fentanyl (Sublimaze) Confirm Administered Dose 100 mcg .ROUTE .STK-MED ONE Stop: 12/27/16 07:29 Fentanyl (Sublimaze) 50 mcg IVPUSH Q5M PRN PRN Reason: Pain Stop: 12/27/16 09:31 Hydromorphone HCl (Dilaudid) 0.5 mg IVPUSH Q15M PRN PRN Reason: severe pain Stop: 12/27/16 09:31 Last Admin: 12/27/16 13:06 Dose: 0.5 mg Hydromorphone HCl (Dilaudid) Confirm Administered Dose 0.5 mg .ROUTE .STK-MED ONE Stop: 12/27/16 13:00 Last Admin: 12/27/16 23:26 Dose: Not Given Lactated Ringer's (Ringers, Lactated) 1,000 mls @ 125 mls/hr IV ASDIRECTED [facility] [place] Last Admin: 12/27/16 08:25 Dose: 125 mls/hr Lidocaine HCl (Xylocaine-Mpf 1%) Confirm Administered Dose 8 mls @ as directed .ROUTE .STK-MED ONE Stop: 12/27/16 07:28 Lactated Ringer's (Ringers, Lactated) Confirm Administered Dose 2,000 mls @ as directed .ROUTE .STK-MED ONE Stop: 12/27/16 07:28 Phenylephrine HCl 1 mg/ Sodium (Chloride) 10.1 mls @ 1 mls/sec IV TITRATE [facility] [place] PRN Reason: Protocol Stop: 12/27/16 18:00 Cefazolin Sodium/Dextrose 1 gm (/ Premix) 50 mls @ 200 mls/hr IV Q6H NICKY Last Admin: 12/28/16 14:32 Dose: 200 mls/hr Iodine (Iodine 2% Mild Tincture) Confirm Administered Dose 30 ml .ROUTE .STK- MED ONE Stop: 12/27/16 07:43 Last Admin: 12/27/16 10:14 Dose: 6 ml Ketamine HCl (Ketalar) Confirm Administered Dose 500 mg .ROUTE .STK-MED ONE Stop: 12/27/16 07:29 Lidocaine/Sodium Bicarbonate (Buffered Lidocaine 1% In Ns 8.4%) 0.25 ml IV ONETIME PRN PRN Reason: Prior to IV Start Last Admin: 12/27/16 08:24 Dose: 0.25 ml Midazolam HCl (Versed 1 Mg/Ml) Confirm Administered Dose 2 mg .ROUTE .STK-MED ONE Stop: 12/27/16 07:29 Morphine Sulfate (Duramorph Pf) Confirm Administered Dose 10 mg .ROUTE .STK-MED ONE Stop: 12/27/16 07:29 Ondansetron HCl (Zofran) Confirm Administered Dose 4 mg .ROUTE .STK-MED ONE Stop: 12/27/16 07:28 Ondansetron HCl (Zofran) 4 mg IVPUSH ONETIME PRN PRN Reason: Nausea/Vomiting Stop: 12/27/16 18:00 Phenylephrine HCl (Mert-Synephrine) Confirm Administered Dose 10 mg .ROUTE .STK- MED ONE Stop: 12/27/16 07:28 Propofol (Diprivan 20 Ml) Confirm Administered Dose 400 mg .ROUTE .STK-MED ONE Stop: 12/27/16 07:28 Propofol (Diprivan 20 Ml) Confirm Administered Dose 200 mg .ROUTE .STK-MED ONE Stop: 12/27/16 10:49 Propofol (Diprivan 20 Ml) Confirm Administered Dose 200 mg .ROUTE .STK-MED ONE Stop: 12/27/16 11:19 Propofol (Diprivan 20 Ml) Confirm Administered Dose 200 mg .ROUTE .STK-MED ONE Stop: 12/27/16 11:45 Sodium Chloride (Saline Flush) 10 ml FLUSH ASDIRECTED PRN PRN Reason: Keep Vein Open - Exam Quality Assessment: DVT Prophylaxis General: Alert, Oriented, Cooperative, No Acute Distress HEENT: Pupils Equal, EOMI, Mucous Membr. Moist/Ono Neck: Supple Lungs: Clear to Auscultation, Normal Respiratory Effort Cardiovascular: Regular Rate, Regular Rhythm GI/Abdominal Exam: Normal Bowel Sounds, Soft, Non-Tender (Male) Exam: Deferred Extremities: Normal Inspection, No Pedal Edema, Normal Capillary Refill Peripheral Pulses: 2+: Dorsalis Pedis (L), Dorsalis Pedis (R) Skin: Warm, Dry Wound/Incisions: Dressing Dry and Intact (lt hip) Neurological: No New Focal Deficit Psy/Mental Status: Alert, Normal Affect, Normal Mood Consult PN Assessment/Plan POD#: 3 Procedures: Procedures AIRWAY INHALATION TREATMENT (08/04/16) ASSAY OF MAGNESIUM (08/04/16) BLOOD GASES ANY COMBINATION (08/04/16) BLOOD TYPING SEROLOGIC ABO (07/13/16) BLOOD TYPING SEROLOGIC RH(D) (07/13/16) CHEST X-RAY 2VW FRONTAL&LATL (08/04/16) COMPLETE CBC W/AUTO DIFF WBC (08/04/16) EVALUATE PT USE OF INHALER (08/04/16) GAIT TRAINING THERAPY (08/04/16) GLUCOSE BLOOD TEST (08/04/16) GLYCOSYLATED HEMOGLOBIN TEST (08/04/16) HEMOGLOBIN (08/04/16) MEASURE BLOOD OXYGEN LEVEL (08/04/16) METABOLIC PANEL TOTAL CA (08/04/16) MR-STAPH DNA AMP PROBE (12/05/16) OFFICE/OUTPATIENT VISIT EST (07/13/16) OT EVAL LOW COMPLEX 30 MIN (08/04/16) PT EVAL LOW COMPLEX 20 MIN (09/02/16) RBC ANTIBODY SCREEN (07/13/16) RMVL DEVITAL TIS 20 CM/< (09/02/16) ROUTINE VENIPUNCTURE (08/04/16) SELF CARE MNGMENT TRAINING (08/04/16) THERAPEUTIC ACTIVITIES (08/04/16) THERAPEUTIC EXERCISES (08/04/16) WITHDRAWAL OF ARTERIAL BLOOD (08/04/16) X-RAY EXAM HIP UNI 2-3 VIEWS (12/05/16) X-RAY EXAM OF PELVIS (12/05/16) (1) S/P total hip arthroplasty SNOMED Code(s): 818977043099 Code(s): Z96.649 - PRESENCE OF UNSPECIFIED ARTIFICIAL HIP JOINT Priority: High Current Visit: Yes Qualifiers: Laterality: left Qualified Code(s): Z96.642 - Presence of left artificial hip joint (2) Osteoarthritis SNOMED Code(s): 716049270 Code(s): M19.90 - UNSPECIFIED OSTEOARTHRITIS, UNSPECIFIED SITE Priority: High Current Visit: Yes Qualifiers: Osteoarthritis location: hip Osteoarthritis type: primary Laterality: right Qualified Code(s): M16.11 - Unilateral primary osteoarthritis, right hip (3) HTN (hypertension) SNOMED Code(s): 65208760 Code(s): I10 - ESSENTIAL (PRIMARY) HYPERTENSION Priority: Medium Current Visit: Yes Qualifiers: Hypertension type: essential hypertension Qualified Code(s): I10 - Essential (primary) hypertension (4) COPD (chronic obstructive pulmonary disease) SNOMED Code(s): 36293628 Code(s): J44.9 - CHRONIC OBSTRUCTIVE PULMONARY DISEASE, UNSPECIFIED Priority: Medium Current Visit: Yes Qualifiers: Emphysema type: unspecified (5) HLD (hyperlipidemia) SNOMED Code(s): 18872108 Code(s): E78.5 - HYPERLIPIDEMIA, UNSPECIFIED Priority: Low Current Visit : No Qualifiers: Hyperlipidemia type: unspecified Qualified Code(s): E78.5 - Hyperlipidemia , unspecified (6) Type 2 diabetes mellitus SNOMED Code(s): 96490782 Code(s): E11.9 - TYPE 2 DIABETES MELLITUS WITHOUT COMPLICATIONS Priority: Medium Current Visit: Yes Qualifiers: Diabetes mellitus complication status: without complication Diabetes mellitus termite technician insulin use: without termite technician use Qualified Code(s): E11.9 - Type 2 diabetes mellitus without complications (7) Postoperative anemia due to acute blood loss SNOMED Code(s): 23563420272782012 Code(s): D62 - ACUTE POSTHEMORRHAGIC ANEMIA Priority: High Current Visit : Yes Problem List Initiated/Reviewed/Updated: Yes My Orders Last 24 Hours: My Active Orders 12/29/16 06:48 Docusate Sodium [Colace] 100 mg PO BID PRN 12/29/16 06:49 Blood Glucose Check, Bedside [RC] BIDAC 12/30/16 07:14 Ready for Discharge [RC] PER UNIT ROUTINE 12/31/16 05:11 MAGNESIUM [CHEM] AM 12/31/16 12:57 BASIC METABOLIC PANEL,BMP [CHEM] DAILY CBC WITH AUTO DIFF [HEME] DAILY Plan: I/P: S/P Lt KRISTIN with Dr. Shaikh; POD #3 -Pain management and DVT prophylax -PT/OT -RT/IS -Hgb 9.8 today; stable, has been started on oral iron supplementation Chronic conditions HTN- stable, home meds DM- stable, cont accuchecks--BID have been very stable 120's or less HLD- cont home meds COPD- weaned of supplemental O2 except at night; will have orders for O2 PRN to keep sats >90% at SNF. Other: GI prophylax CM/SW for assist with DC planning- Plans for DC to SNF stay at [facility] today He is doing well thus far. Stable, VSS. Pain controlled. Medically stable for discharge from Hospitalist standpoint. Reviewed case with Dr. Shaikh this am. Patient is Full Code status.
[2016-12-30] MEDS: Multivitamins with Minerals/Folic Acid/Lutein/Zeaxanth Tab PO SCH (10:14)
[2016-12-30] MEDS: Famotidine 20 MG Tab PO SCH (10:14)
[2016-12-30] MEDS: Magnesium Oxide 400 MG Tab PO SCH (10:14)
[2016-12-30] MEDS: Hydrochlorothiazide 25 MG Tab PO SCH (10:14)
[2016-12-30] MEDS: Aspirin 81 MG Tab.EC PO SCH (10:14)
[2016-12-30] MEDS: Lisinopril 20 MG Tab PO SCH (10:14)
[2016-12-30] MEDS: Enoxaparin 40 MG/0.4 ML Syringe SUBCUT SCH (10:15)
[2016-12-30] MEDS: Ondansetron 4 MG/2 ML SDV IVPUSH PRN (10:22)
[2016-12-30 13:13] VITALS: BP 137/57
--- NOTE | 2016-12-30 17:12 | DISCH ---
ADMISSION DATE: 12/27/2016 DISCHARGE DATE: 12/30/2016 FINAL DIAGNOSIS: 1. Severe osteoarthritis, left hip with intractable pain. 2. Postoperative left total hip replacement surgery. CONSULTATIONS: 1. Dr. Potts for postoperative medical stabilization and medical evaluation and treatment. 2. Orthopedic with Dr. Shaikh for followup postoperative left total hip replacement. HOSPITAL COURSE: This patient was admitted on 12/27/2016 to the hospital for evaluation and surgical treatment of the left hip. The patient had a history of severe intractable pain of the left hip, was treated on an outpatient basis until pain override the treatment, and was scheduled for a left total hip replacement. The patient underwent a left total hip replacement on 12/27/2016, and his postoperative recovery period was stable. The patient was begun on a physical therapy rehab program to begin ambulation with a walker, partial weightbearing. The patient notes that during the course of the hospital stay, he had a slight drop in his blood studies but has maintained a good blood pressure, and also, his hemoglobin and hematocrit evaluation remained stable to the point where no transfusions were necessary. The patient notes following the surgical period, he had Hemovacs to the left hip along with a [place] catheter. The patient's bladder has been stable. He notes no burning or problems urinating. He does note that with the pain medicines that he has received that he has had a decrease in his bowel movement type activity, which will be helped with the stool softener. Overall, the patient is stable and will be discharged to the [place] [facility] to continue convalescence and rehab program with physical therapy and occupational therapy. CONDITION ON DISCHARGE: The condition at discharge is stable. DIET: Healthy diabetic diet. ACTIVITY: Activity level is a partial weightbearing, left lower extremity. DISCHARGE MEDICATIONS: Medictions for home will be ramipril 10 mg, hydrochlorothiazide 25 mg, vitamin D3 along with tramadol for pain control. He will be on iron supplements for the decrease in hemoglobin as a result of blood loss anemia. The patient also will be on Lovenox 40 mg daily for 10 days and then will start on aspirin treatment program. He also will be on stool softener of Colace, cyclobenzaprine, Flexeril 10 mg for muscle spasm, and also will start on an aspirin treatment program after the Lovenox is finished. We also will supplement his pain medicines with Percocet 5/325. FOLLOW-UP: The followup evaluation will be approximately 2 to 3 weeks in the Orthopedic Clinic for evaluation. The patient will also have skin sutures removed at the [place] [facility] in 2 weeks and also will be maintained on dressing changes to the left hip. DISPOSITION: To [facility] for convalescence and rehab program following left total hip replacement. WILMAR /[id number]
--- NOTE | 2017-01-02 07:09 | PN ---
DATE OF SERVICE: 12/30/2016 Postoperative medical note followup SUBJECTIVE: Postoperative day #3. The patient is being followed up and evaluated for possible discharge. The patient underwent a left total hip replacement on 12/27/2016, has been medically stabilized to the point where he is now working with Physical Therapy out of bed. He notes no complaints of urinary tract problems or any specific wound-type problems at this point. The patient has stabilized and the patient will be evaluated for discharge to a senior care with a followup evaluation through the orthopedic office in approximately 2-3 weeks. This was discussed with the patient. He understands that, and we will follow up with him after his discharge. WILMAR /[id number]
== END 2016-12-30 13:05 | DRG 470 ==
LOC: JD.MS 07:46
PROVIDERS: ADMIT Specialist; ATTEND Specialist
PROC: 0SRB019 Replacement of Left Hip Joint with Metal Synthetic Substitute, Cemented, Open Approach (ICD-10-PCS; principal; 2016-12-27)
DX: M16.12 Unilateral primary osteoarthritis, left hip (principal); J30.2 Other seasonal allergic rhinitis; I10 Essential (primary) hypertension; Z96.641 Presence of right artificial hip joint; Z87.891 Personal history of nicotine dependence; Z91.040 Latex allergy status; Z79.82 Long term (current) use of aspirin; Z79.899 Other long term (current) drug therapy; J44.9 Chronic obstructive pulmonary disease, unspecified; E78.5 Hyperlipidemia, unspecified; N40.0 Benign prostatic hyperplasia without lower urinary tract symptoms; E11.9 Type 2 diabetes mellitus without complications; N52.9 Male erectile dysfunction, unspecified; E55.9 Vitamin D deficiency, unspecified; F41.9 Anxiety disorder, unspecified; H54.7 Unspecified visual loss
CPT/HCPCS: 01214; 36415; 73502-26-LT; 73502-LT; 80048; 82962; 83735; 85025; 86850; 86900; 86901; 94760; 94762; 97110-GP; 97116-GP; 97162-GP; 97166-GO; 97530-GO; 97535-GO; A9270-GY; C1713; C1776; J0690; J1170; J1650; J2250; J2270; J2370; J2405; J2704; J3010; J7120